=== PATIENT | female | born 1990 | race Caucasian/White ===

== ENCOUNTER → 2017-08-08 | Outpatient (CLI) | payer OTHER ==
--- NOTE | 2017-08-08 14:59 | REP ---
Focused right breast sonography: History: 1/2 cm hard mass 6 o'clock position under the right breast. No comparison breast imaging. Sonographic findings: The patient was unable to feel the lump at this juncture today. This right breast scanned from 5 o'clock to 7 o'clock. Slightly heterogeneous fibroglandular background echotexture is seen. No cyst, mass, acoustic shadowing or architectural distortion is seen by ultrasound. Impression: BIRADS category 1 negative focused right breast sonography. Clinical follow-up is advised. This negative report should not dissuade one from biopsy of a palpable lump depending on its clinical characteristics. Signed by Juwan Mallory MD 08/08/2017 04:17 P
== END ==
LOC: M RAD 13:29
PROVIDERS: ATTEND Nurse Practitioner Women's Health
DX: N63.11 Unspecified lump in the right breast, upper outer quadrant (principal)

== ENCOUNTER 2017-08-18 12:35 | Day surgery (SDC) | payer OTHER ==
[~2017-08-18] VITALS: Ht 170.2 cm; Wt 120.2 kg
[~2017-08-18 12:35] MED LIST: NO MEDS
[2017-08-18] MEDS ORDERED: LIDOCAINE 1% MDV 20ML VIAL SQ PRN (13:00)
[2017-08-18] MEDS ORDERED: LR 1,000 ML IV ONE (13:00)
[2017-08-18 13:10] LABS: MEAN CORPUSCULAR HEMOGLOBIN 30.4 pg (27.0-33.0); MEAN CORPUSCULAR HGB CONC 34.7 g/dl (32.0-36.5); MEAN CORPUSCULAR VOLUME 87.6 fl (80.0-96.0); PLATELET COUNT, AUTOMATED 348 10^3/uL (150-450); RED CELL DISTRIBUTION WIDTH 12.6 % (11.5-14.5); WHITE BLOOD COUNT 9.3 10^3/uL (4.0-10.0)
[2017-08-18 13:29] LABS: CONTROL LINE HCG INT CTR LINE PRESENT
[2017-08-18] MEDS ORDERED: ONDANSETRON 4MG/2ML VIAL (J2405) As Ordered ONE ×2 (15:16→17:10)
[2017-08-18] MEDS ORDERED: PROPOFOL 200 MG/20 ML VIAL As Ordered ONE (15:16)
[2017-08-18] MEDS ORDERED: KETOROLAC 60 MG/2 ML VIAL (J1885) As Ordered ONE (15:16)
[2017-08-18] MEDS ORDERED: dexameTHASONE 4 MG/ML 1ML VIAL (J1100) As Ordered ONE (15:16)
[2017-08-18] MEDS ORDERED: fentaNYL 100 MCG/2 ML INJECTION (J3010) As Ordered ONE ×2 (15:17→17:10)
[2017-08-18] MEDS ORDERED: MIDAZOLAM INJ 2 MG/2 ML VIAL (J2250) As Ordered ONE (15:17)
[2017-08-18] MEDS ORDERED: PERCOCET 5MG/325MG TAB As Ordered ONE (17:10)
[2017-08-18] MEDS ORDERED: fentaNYL 100 MCG/2 ML INJECTION (J3010) IV PRN (17:15)
[2017-08-18] MEDS ORDERED: LR 1,000 ML IV SCH (17:15)
[2017-08-18] MEDS ORDERED: ONDANSETRON 4MG/2ML VIAL (J2405) IV PRN (17:15)
[2017-08-18] MEDS ORDERED: METOCLOPRAMIDE INJ 10MG/2ML VIAL (J2765) IV PRN (17:15)
[2017-08-18] MEDS ORDERED: PERCOCET 5MG/325MG TAB PO PRN ×2 (17:15)
[2017-08-18] MEDS ORDERED: PERCOCET PO (17:33)
[2017-08-18 19:00] VITALS: BP 140/70
--- NOTE | 2017-08-22 10:08 | RO ---
DATE OF PROCEDURE: 08/18/2017 PREPROCEDURE DIAGNOSIS: Perineal lesion. POSTPROCEDURE DIAGNOSIS: Perineal lesion. PROCEDURE PERFORMED: Excision of perineal lesion. SURGEON: Kristi Walker MD AUDIO PRODUCTION INSTRUCTOR: None. ANESTHESIA: General via laryngeal mask airway. IV FLUIDS: 900 mL of lactated Ringer solution. ESTIMATED BLOOD LOSS: 20 mL. OPERATIVE FINDINGS: Approximately 4 cm broad-based pedunculated perineal lesion. DESCRIPTION OF PROCEDURE: After informed consent was obtained and written consent was reviewed, the patient was brought to the operating room where general anesthesia was obtained. She was then placed in the lithotomy position, was prepped and draped in the normal sterile fashion. A time-out in the operating room was performed, identifying the patient, procedure performed, as well as drug allergies. Elliptical edgard was outlined around the lesion. Using a scalpel, the lesion was excised. The skin was then undermined. Several deep interrupted sutures were placed using #3-0 Vicryl. The skin was then reapproximated using #4-0 Vicryl in a subcuticular fashion. Incision was then cleaned and dried. Dermabond was then applied. The patient was then taken out of lithotomy position, was awakened from general anesthesia, taken to recovery room in stable condition. Counts were correct.
== END 2017-08-18 19:30 | disposition home or self-care (01) ==
LOC: M SDC 12:35
PROVIDERS: ATTEND Obstetrics & Gynecology
DX: L72.0 Epidermal cyst (principal); G43.909 Migraine, unspecified, not intractable, without status migrainosus

== ENCOUNTER 2018-01-11 11:27 | Emergency (ER) | payer OTHER ==
[2018-01-11 13:34] LABS: KETONE, URINE AUTO RFX NEGATIVE (NEGATIVE); MUCUS, URINE RFX LARGE (NEGATIVE); NITRITE, URINE AUTO RFX NEGATIVE (NEGATIVE); RBC, URINE AUTO RFX 3 /HPF (0-3); SPECIFIC GRAVITY UR AUTO RFX 1.028 (1.002-1.035); SQUAM EPITHELIAL CELL UR AURFX 5 /HPF (0-6); WBC, URINE AUTO RFX 3 /HPF (0-3)
[2018-01-11 13:39] LABS: LEUKOCYTE ESTERASE UR AUTO RFX 2+ (NEGATIVE)
== END 2018-01-11 15:00 | disposition home or self-care (01) ==
LOC: M ED 11:27
DX: R10.2 Pelvic and perineal pain (principal); R11.0 Nausea; R51 Headache; Z91.040 Latex allergy status
CPT/HCPCS: 76856

== ENCOUNTER → 2018-01-15 | Outpatient (REF) | payer OTHER ==
[2018-01-15 15:43] LABS: CHLAMYDIA DNA AMPLIFICATION NEGATIVE (NEGATIVE); GC DNA AMPLIFICATION NEGATIVE (NEGATIVE)
== END ==
LOC: M LAB REF 13:21
DX: Z11.3 Encounter for screening for infections with a predominantly sexual mode of transmission (principal)

== ENCOUNTER 2018-02-01 20:26 | Emergency (ER) | payer OTHER | END 2018-02-02 00:19 | disposition left against medical advice (07) | LOC: M ED 02-02 00:19 | DX: M79.605 Pain in left leg (principal); Z53.21 Procedure and treatment not carried out due to patient leaving prior to being seen by health care provider | CPT/HCPCS: 73564 ==

== ENCOUNTER 2018-03-26 17:26 | Emergency (ER) | payer OTHER ==
[2018-03-26] MEDS: NS 1,000 ML IV (18:59)
[2018-03-26] MEDS: KETOROLAC 30 MG/ML VIAL (J1885) IV (18:59)
[2018-03-26] MEDS: METOCLOPRAMIDE INJ 10MG/2ML VIAL (J2765) IV (18:59)
[2018-03-26 19:03] LABS: BASO # 0.1 10^3/uL (0.0-0.2); BASO % 0.5 % (0.0-1.0); EOS # 0.1 10^3/uL (0.0-0.50); EOS % 1.1 % (0.0-3.0); HEMOGLOBIN 14.4 g/dl (12.0-15.5); IMMATURE GRANULOCYTE % 0.4 % (0-3.0); LYMPH # 2.8 10^3/uL (1.5-6.5); LYMPH % 25.1 % (24.0-44.0); MEAN CORPUSCULAR HEMOGLOBIN 30.4 pg (27.0-33.0); MEAN CORPUSCULAR HGB CONC 34.3 g/dl (32.0-36.5); MEAN CORPUSCULAR VOLUME 88.6 fl (80.0-96.0); MONO # 0.7 10^3/uL (0.0-0.8); MONO % 6.1 % (0.0-5.0); NEUTROPHILS # 7.6 10^3/uL (1.8-7.7); NEUTROPHILS % 66.8 % (36.0-66.0); PLATELET COUNT, AUTOMATED 364 10^3/uL (150-450); RED BLOOD COUNT 4.74 10^6/uL (4.00-5.40); RED CELL DISTRIBUTION WIDTH 12.5 % (11.5-14.5); WHITE BLOOD COUNT 11.3 10^3/uL (4.0-10.0)
[2018-03-26 19:25] LABS: ANION GAP 11 MEQ/L (8-16); BLOOD UREA NITROGEN 16 MG/DL (7-18); CALCIUM LEVEL 9.2 MG/DL (8.5-10.1); CARBON DIOXIDE LEVEL 21 MEQ/L (21-32); CHLORIDE LEVEL 107 MEQ/L (98-107); CREATININE FOR GFR 0.78 MG/DL (0.55-1.30); GLOMERULAR FILTRATION RATE > 60.0 (>60); GLUCOSE, FASTING 89 MG/DL (70-100); MAGNESIUM LEVEL 2.2 MG/DL (1.8-2.4); SODIUM LEVEL 139 MEQ/L (136-145)
[2018-03-26 19:26] LABS: POTASSIUM SERUM 5.6 MEQ/L (3.5-5.1)
== END 2018-03-26 20:49 | disposition home or self-care (01) ==
LOC: M ED 17:26
DX: G43.909 Migraine, unspecified, not intractable, without status migrainosus (principal)
CPT/HCPCS: J1885

== ENCOUNTER 2018-04-11 08:27 | Emergency (ER) | payer OTHER ==
[2018-04-11] MEDS: GI COCKTAIL 50ML BTL(HYOSCYAMINE/MAALOX/LIDOCAINE VISCOUS)(1:3:1) PO (09:30)
[2018-04-11] MEDS: NS 1,000 ML IV (09:31)
[2018-04-11 09:49] LABS: BASO % 0.5 % (0.0-1.0); EOS # 0.1 10^3/uL (0.0-0.50); EOS % 1.6 % (0.0-3.0); HEMATOCRIT 40.8 % (36.0-47.0); HEMOGLOBIN 14.2 g/dl (12.0-15.5); IMMATURE GRANULOCYTE % 0.2 % (0-3.0); LYMPH # 2.7 10^3/uL (1.5-6.5); LYMPH % 31.6 % (24.0-44.0); MEAN CORPUSCULAR HEMOGLOBIN 30.8 pg (27.0-33.0); MEAN CORPUSCULAR HGB CONC 34.8 g/dl (32.0-36.5); MEAN CORPUSCULAR VOLUME 88.5 fl (80.0-96.0); MONO # 0.5 10^3/uL (0.0-0.8); MONO % 6.2 % (0.0-5.0); NEUTROPHILS # 5.1 10^3/uL (1.8-7.7); NEUTROPHILS % 59.9 % (36.0-66.0); PLATELET COUNT, AUTOMATED 322 10^3/uL (150-450); RED BLOOD COUNT 4.61 10^6/uL (4.00-5.40); RED CELL DISTRIBUTION WIDTH 12.5 % (11.5-14.5); WHITE BLOOD COUNT 8.6 10^3/uL (4.0-10.0)
[2018-04-11 10:04] LABS: CONTROL LINE HCG INT CTR LINE PRESENT; HCG, SERUM QUALITATIVE NEGATIVE (NEGATIVE)
[2018-04-11 10:13] LABS: ALBUMIN 3.2 GM/DL (3.2-5.2); ALBUMIN/GLOBULIN RATIO 0.78 (1.00-1.93); ALKALINE PHOSPHATASE 53 U/L (45-117); ALT/SGPT 24 U/L (12-78); ANION GAP 11 MEQ/L (8-16); AST/SGOT 18 U/L (7-37); BILIRUBIN,DIRECT 0.2 MG/DL (0.0-0.2); BILIRUBIN,TOTAL 0.6 MG/DL (0.2-1.0); BLOOD UREA NITROGEN 7 MG/DL (7-18); CALCIUM LEVEL 8.4 MG/DL (8.5-10.1); CARBON DIOXIDE LEVEL 25 MEQ/L (21-32); CHLORIDE LEVEL 105 MEQ/L (98-107); CPK CREATINE PHOSPHOKINASE 34 U/L (26-192); GLOMERULAR FILTRATION RATE > 60.0 (>60); GLUCOSE, FASTING 91 MG/DL (70-100); LIPASE 65 U/L (73-393); POTASSIUM SERUM 3.3 MEQ/L (3.5-5.1); SODIUM LEVEL 141 MEQ/L (136-145); TOTAL PROTEIN 7.3 GM/DL (6.4-8.2); TROPONIN I < 0.02 NG/ML (< 0.10)
[2018-04-11 10:15] LABS: D-DIMER QUANT < 270.0 ng/ml (<500)
[2018-04-11 10:18] LABS: CK-MB VALUE MASS < 1.0 NG/ML (<3.6); MB/CK RELATIVE INDEX 2.94 (< OR =4)
== END 2018-04-11 11:56 | disposition home or self-care (01) ==
LOC: M ED 08:27
DX: R07.89 Other chest pain (principal); R03.0 Elevated blood-pressure reading, without diagnosis of hypertension; R11.0 Nausea; G43.909 Migraine, unspecified, not intractable, without status migrainosus; Z79.899 Other long term (current) drug therapy; Z91.040 Latex allergy status
CPT/HCPCS: 71046

== ENCOUNTER 2018-05-10 13:59 | Emergency (ER) | payer OTHER ==
[2018-05-10 14:42] LABS: BASO # 0.1 10^3/uL (0.0-0.2); BASO % 0.6 % (0.0-1.0); EOS # 0.1 10^3/uL (0.0-0.50); EOS % 1.3 % (0.0-3.0); HEMOGLOBIN 14.9 g/dl (12.0-15.5); IMMATURE GRANULOCYTE % 0.4 % (0-3.0); LYMPH # 2.5 10^3/uL (1.5-6.5); LYMPH % 29.3 % (24.0-44.0); MEAN CORPUSCULAR HEMOGLOBIN 31.1 pg (27.0-33.0); MEAN CORPUSCULAR HGB CONC 35.5 g/dl (32.0-36.5); MEAN CORPUSCULAR VOLUME 87.7 fl (80.0-96.0); MONO # 0.5 10^3/uL (0.0-0.8); NEUTROPHILS # 5.3 10^3/uL (1.8-7.7); NEUTROPHILS % 62.4 % (36.0-66.0); PLATELET COUNT, AUTOMATED 378 10^3/uL (150-450); RED BLOOD COUNT 4.79 10^6/uL (4.00-5.40); RED CELL DISTRIBUTION WIDTH 12.7 % (11.5-14.5); WHITE BLOOD COUNT 8.4 10^3/uL (4.0-10.0)
[2018-05-10 15:02] LABS: ANION GAP 11 MEQ/L (8-16); BLOOD UREA NITROGEN 10 MG/DL (7-18); CALCIUM LEVEL 8.8 MG/DL (8.5-10.1); CARBON DIOXIDE LEVEL 30 MEQ/L (21-32); CHLORIDE LEVEL 101 MEQ/L (98-107); GLOMERULAR FILTRATION RATE > 60.0 (>60); GLUCOSE, FASTING 90 MG/DL (70-100); MAGNESIUM LEVEL 2.2 MG/DL (1.8-2.4); POTASSIUM SERUM 3.3 MEQ/L (3.5-5.1); SODIUM LEVEL 142 MEQ/L (136-145)
== END 2018-05-10 15:32 | disposition home or self-care (01) ==
LOC: M ED 13:59
DX: R20.2 Paresthesia of skin (principal); Z79.899 Other long term (current) drug therapy
CPT/HCPCS: 72125

== ENCOUNTER → 2018-06-14 | Outpatient (CLI) | payer OTHER | LOC: M RAD 08:01 | DX: J32.0 Chronic maxillary sinusitis (principal) | CPT/HCPCS: 70486 ==

== ENCOUNTER 2018-08-10 08:23 | Emergency (ER) | payer OTHER ==
[2018-08-10] MEDS: IBUPROFEN 800 MG TAB PO (09:18)
== END 2018-08-10 09:25 | disposition home or self-care (01) ==
LOC: M ED 08:23
DX: M79.672 Pain in left foot (principal)
CPT/HCPCS: 73630

== ENCOUNTER 2018-08-17 21:59 | Emergency (ER) | payer OTHER ==
[2018-08-17 22:48] LABS: BASO # 0.1 10^3/uL (0.0-0.2); BASO % 0.7 % (0.0-1.0); EOS # 0.2 10^3/uL (0.0-0.50); EOS % 1.7 % (0.0-3.0); HEMATOCRIT 40.2 % (36.0-47.0); HEMOGLOBIN 14.2 g/dl (12.0-15.5); IMMATURE GRANULOCYTE % 0.2 % (0-3.0); LYMPH # 3.1 10^3/uL (1.5-4.5); LYMPH % 31.3 % (24.0-44.0); MEAN CORPUSCULAR HEMOGLOBIN 31.3 pg (27.0-33.0); MEAN CORPUSCULAR HGB CONC 35.3 g/dl (32.0-36.5); MEAN CORPUSCULAR VOLUME 88.5 fl (80.0-96.0); MONO # 0.8 10^3/uL (0.0-0.8); MONO % 8.3 % (0.0-5.0); NEUTROPHILS # 5.7 10^3/uL (1.8-7.7); NEUTROPHILS % 57.8 % (36.0-66.0); PLATELET COUNT, AUTOMATED 410 10^3/uL (150-450); RED BLOOD COUNT 4.54 10^6/uL (4.00-5.40); WHITE BLOOD COUNT 9.8 10^3/uL (4.0-10.0)
[2018-08-17 22:52] LABS: ABG BASE EXCESS 3.7 (-2.0-2.0); ABG HCO3 25.6 MEQ/L (22.0-26.0); ABG PARTIAL PRESSURE O2 136.5 mmHg (75.0-100.0); ABG STANDARD HCO3 27.8 MEQ/L (22.0-26.0); ABG TOTAL CO2 26.6 MEQ/L (22.0-29.0); ABG pH (ARTERIAL) 7.535 UNITS (7.350-7.450)
[2018-08-17 23:02] LABS: ANION GAP 9 MEQ/L (8-16); BLOOD UREA NITROGEN 16 MG/DL (7-18); CALCIUM LEVEL 8.6 MG/DL (8.5-10.1); CARBON DIOXIDE LEVEL 30 MEQ/L (21-32); CHLORIDE LEVEL 102 MEQ/L (98-107); CREATININE FOR GFR 0.74 MG/DL (0.55-1.30); GLOMERULAR FILTRATION RATE > 60.0 (>60); GLUCOSE, FASTING 117 MG/DL (70-100); POTASSIUM SERUM 3.5 MEQ/L (3.5-5.1); SODIUM LEVEL 141 MEQ/L (136-145)
[2018-08-17 23:28] LABS: CONTROL LINE HCG INT CTR LINE PRESENT; HCG, SERUM QUALITATIVE NEGATIVE (NEGATIVE)
[2018-08-18] MEDS: LORazepam 1 MG TAB PO (00:27)
== END 2018-08-18 01:06 | disposition home or self-care (01) ==
LOC: M ED 08-18 01:06
DX: R06.89 Other abnormalities of breathing (principal); F41.9 Anxiety disorder, unspecified
CPT/HCPCS: 71045

== ENCOUNTER 2018-11-13 10:26 | Emergency (ER) | payer OTHER ==
[~2018-11-13] VITALS: Ht 167.6 cm; Wt 253.0 kg
[~2018-11-13 10:26] MED LIST changes: +ACET500T15 PO; +CHLO125TA; +FLON1SPR NARES; +KETO10TAB PO; +METR-201; +PERCOCET PO; +REGL10TA6 PO; +TOPA1TAB PO
[2018-11-13] MEDS ORDERED: LIDOCAINE 1% MDV 20ML VIAL IM ONE (11:30)
[2018-11-13 12:09] VITALS: BP 138/88
[2018-11-13] MEDS ORDERED: NORCOTAB PO (12:11)
[2018-11-13] MEDS ORDERED: NORCO, ANEXSIA 5/325MG TABLET (HYDROcodone/ACETAMINOPHEN) PO ONE (12:15)
== END 2018-11-13 12:22 | disposition home or self-care (01) ==
LOC: M ED 10:26
DX: N75.1 Abscess of Bartholin's gland (principal); I10 Essential (primary) hypertension; Z79.899 Other long term (current) drug therapy; Z91.040 Latex allergy status

== ENCOUNTER 2018-12-14 13:31 | Emergency (ER) | payer OTHER ==
[~2018-12-14] VITALS: Ht 167.6 cm; Wt 113.6 kg
[2018-12-14 13:31] VITALS: BP 149/73
[~2018-12-14 13:31] MED LIST changes: +HYDR-3715 PO; -METR-201; +METR-265
[2018-12-14] MEDS ORDERED: EXPOSURE KIT-ADULT 7 DAY SUPPLY PO ONE (14:30)
[2018-12-14 14:34] LABS: BASO # 0.1 10^3/uL (0.0-0.2); BASO % 0.6 % (0.0-1.0); EOS # 0.1 10^3/uL (0.0-0.50); EOS % 1.1 % (0.0-3.0); HEMATOCRIT 39.5 % (36.0-47.0); HEMOGLOBIN 13.8 g/dl (12.0-15.5); LYMPH # 2.6 10^3/uL (1.5-4.5); LYMPH % 27.4 % (24.0-44.0); MEAN CORPUSCULAR HEMOGLOBIN 30.7 pg (27.0-33.0); MEAN CORPUSCULAR HGB CONC 34.9 g/dl (32.0-36.5); MONO # 0.6 10^3/uL (0.0-0.8); MONO % 5.8 % (0.0-5.0); NEUTROPHILS # 6.2 10^3/uL (1.8-7.7); NEUTROPHILS % 64.9 % (36.0-66.0); PLATELET COUNT, AUTOMATED 371 10^3/uL (150-450); RED BLOOD COUNT 4.49 10^6/uL (4.00-5.40); WHITE BLOOD COUNT 9.5 10^3/uL (4.0-10.0)
[2018-12-14] MEDS ORDERED: RALT40TA PO (14:35)
[2018-12-14] MEDS ORDERED: TRUVTAB PO (14:35)
[2018-12-15 20:24] LABS: HCG, SERUM QUALITATIVE NEGATIVE (NEGATIVE)
[2018-12-17 10:41] LABS: HEPATITIS B SURFACE ANTIBODY POSITIVE (POSITIVE); HEPATITIS B SURFACE ANTIGEN NEGATIVE (NEGATIVE)
[2018-12-18] MEDS ORDERED: METAL LOCK LOOP XX ONE (03:16)
[2018-12-19] MEDS ORDERED: METAL LOCK LOOP XX ONE (02:27)
== END 2018-12-14 14:51 | disposition home or self-care (01) ==
LOC: M ED 13:31
DX: Z77.21 Contact with and (suspected) exposure to potentially hazardous body fluids (principal); Z91.040 Latex allergy status; Z79.899 Other long term (current) drug therapy

== ENCOUNTER 2019-02-19 17:02 | Emergency (ER) | payer OTHER ==
[~2019-02-19] VITALS: Ht 167.6 cm; Wt 115.5 kg
[2019-02-19] MEDS ORDERED: LIDOCAINE 1% MDV 20ML VIAL SC ONE (17:30)
[2019-02-19] MEDS ORDERED: ADACEL/BOOSTRIX VACCINE (DIPHTH/PERTUSS/ACELL/TETANUS)0.5ML SYR (90715) IM ONE (17:30)
[2019-02-19 18:09] VITALS: BP 141/81
== END 2019-02-19 18:11 | disposition home or self-care (01) ==
LOC: M ED 17:02
DX: S61.411A Laceration without foreign body of right hand, initial encounter (principal); W26.8XXA Contact with other sharp object(s), not elsewhere classified, initial encounter; Y92.89 Other specified places as the place of occurrence of the external cause; Y99.0 Civilian activity done for income or pay; I10 Essential (primary) hypertension; Z91.040 Latex allergy status; Z79.899 Other long term (current) drug therapy

== ENCOUNTER → 2019-02-19 | Outpatient (REF) | payer OTHER ==
[~2019-02-19] MED LIST changes: +RALT40TA PO; +TRUVTAB PO
[2019-02-19 11:33] LABS: ALBUMIN 3.4 GM/DL (3.2-5.2); ALT/SGPT 18 U/L (12-78); BILIRUBIN,TOTAL 0.4 MG/DL (0.2-1.0); BLOOD UREA NITROGEN 19 MG/DL (7-18); CALCIUM LEVEL 8.7 MG/DL (8.5-10.1); CARBON DIOXIDE LEVEL 32 MEQ/L (21-32); CHLORIDE LEVEL 106 MEQ/L (98-107); CHOLESTEROL LEVEL 185 MG/DL (<200); CHOLESTEROL RISK RATIO 3.032 (<5); CREATININE FOR GFR 0.69 MG/DL (0.55-1.30); GLOMERULAR FILTRATION RATE > 60.0 (>60); GLUCOSE, FASTING 101 MG/DL (70-100); HDL CHOLESTEROL 61 MG/DL (>40); LDL CHOLESTEROL 112 MG/DL (<100); NON-HDL-C 124 MG/DL; POTASSIUM SERUM 3.8 MEQ/L (3.5-5.1); SODIUM LEVEL 146 MEQ/L (136-145); TOTAL PROTEIN 7.5 GM/DL (6.4-8.2); TRIGLYCERIDES LEVEL 60 MG/DL (<150)
== END ==
LOC: M LAB REF 10:47
PROVIDERS: ATTEND Family Medicine Addiction Medicine
DX: I10 Essential (primary) hypertension (principal)

== ENCOUNTER 2019-02-26 13:48 | Outpatient (RCR) | payer OTHER ==
[2019-03-01] MEDS ORDERED: CILO0.3S OD (09:52)
[2019-03-01] MEDS ORDERED: CYCL1SOL17 OD (09:52)
[2019-03-01] MEDS ORDERED: ACUL0.5S OD (09:52)
== END 2019-03-10 ==
LOC: M PT 13:48
PROVIDERS: ATTEND Orthopaedic Surgery
DX: M47.892 Other spondylosis, cervical region (principal)

== ENCOUNTER 2019-03-01 08:54 | Emergency (ER) | payer OTHER ==
[~2019-03-01] VITALS: Ht 167.6 cm; Wt 115.0 kg
[2019-03-01 08:54] VITALS: BP 135/78
[2019-03-01] MEDS ORDERED: TETRACAINE 0.5% OPHTH SOLN 4ML OD ONE (09:30)
[2019-03-01] MEDS ORDERED: FLUORESCEIN OPHTH 1 MG STRIP OD ONE (09:30)
[2019-03-01] MEDS ORDERED: CYCL1SOL17 OD (09:52)
[2019-03-01] MEDS ORDERED: CILO0.3S OD (09:52)
[2019-03-01] MEDS ORDERED: ACUL0.5S OD (09:52)
== END 2019-03-01 10:10 | disposition home or self-care (01) ==
LOC: M ED 08:54
DX: S05.01XA Injury of conjunctiva and corneal abrasion without foreign body, right eye, initial encounter (principal); H10.31 Unspecified acute conjunctivitis, right eye; X58.XXXA Exposure to other specified factors, initial encounter; Y92.098 Other place in other non-institutional residence as the place of occurrence of the external cause; I10 Essential (primary) hypertension; Z91.040 Latex allergy status; Z79.899 Other long term (current) drug therapy

== ENCOUNTER 2019-03-05 08:31 | Emergency (ER) | payer OTHER ==
[~2019-03-05] VITALS: Ht 167.6 cm; Wt 116.4 kg
[2019-03-05 08:31] VITALS: BP 133/85
[~2019-03-05 08:31] MED LIST changes: +ACUL0.5S OD; +CILO0.3S OD; +CYCL1SOL17 OD
== END 2019-03-05 09:22 | disposition home or self-care (01) ==
LOC: M ED 08:31
DX: Z48.02 Encounter for removal of sutures (principal); S61.411D Laceration without foreign body of right hand, subsequent encounter; X58.XXXD Exposure to other specified factors, subsequent encounter; Y92.89 Other specified places as the place of occurrence of the external cause; I10 Essential (primary) hypertension; G43.909 Migraine, unspecified, not intractable, without status migrainosus; Z91.040 Latex allergy status

== ENCOUNTER 2019-03-17 11:09 | Emergency (ER) | payer OTHER ==
[~2019-03-17] VITALS: Ht 167.6 cm; Wt 115.5 kg
[2019-03-17] MEDS ORDERED: TETRACAINE 0.5% OPHTH SOLN 4ML OD ONE (13:00)
[2019-03-17 13:02] LABS: BASO # 0.1 10^3/uL (0.0-0.2); BASO % 0.8 % (0.0-1.0); EOS # 0.1 10^3/uL (0.0-0.50); EOS % 1.2 % (0.0-3.0); HEMATOCRIT 42.4 % (36.0-47.0); HEMOGLOBIN 14.6 g/dl (12.0-15.5); LYMPH # 1.8 10^3/uL (1.5-4.5); LYMPH % 24.8 % (24.0-44.0); MEAN CORPUSCULAR HEMOGLOBIN 31.3 pg (27.0-33.0); MEAN CORPUSCULAR HGB CONC 34.4 g/dl (32.0-36.5); MEAN CORPUSCULAR VOLUME 90.8 fl (80.0-96.0); MONO # 0.5 10^3/uL (0.0-0.8); MONO % 6.1 % (0.0-5.0); NEUTROPHILS # 4.9 10^3/uL (1.8-7.7); NEUTROPHILS % 66.8 % (36.0-66.0); PLATELET COUNT, AUTOMATED 364 10^3/uL (150-450); RED BLOOD COUNT 4.67 10^6/uL (4.00-5.40); WHITE BLOOD COUNT 7.4 10^3/uL (4.0-10.0)
[2019-03-17 13:25] LABS: HCG, SERUM QUALITATIVE NEGATIVE (NEGATIVE)
[2019-03-17 13:27] LABS: ALBUMIN 3.5 GM/DL (3.2-5.2); ALT/SGPT 21 U/L (12-78); BILIRUBIN,TOTAL 0.4 MG/DL (0.2-1.0); BLOOD UREA NITROGEN 16 MG/DL (7-18); CALCIUM LEVEL 9.1 MG/DL (8.5-10.1); CARBON DIOXIDE LEVEL 29 MEQ/L (21-32); CHLORIDE LEVEL 104 MEQ/L (98-107); CREATININE FOR GFR 0.66 MG/DL (0.55-1.30); GLOMERULAR FILTRATION RATE > 60.0 (>60); GLUCOSE, FASTING 88 MG/DL (70-100); POTASSIUM SERUM 3.5 MEQ/L (3.5-5.1); SODIUM LEVEL 140 MEQ/L (136-145); TOTAL PROTEIN 7.7 GM/DL (6.4-8.2)
[2019-03-17] MEDS ORDERED: FLUORESCEIN OPHTH 1 MG STRIP OD ONE (14:45)
[2019-03-17 15:05] VITALS: BP 122/71
[2019-03-18 12:28] LABS: HEPATITIS B SURFACE ANTIBODY POSITIVE (POSITIVE)
[2019-03-18 12:39] LABS: HEPATITIS B SURFACE ANTIGEN NEGATIVE (NEGATIVE)
[2019-03-18 13:07] LABS: HEPATITIS C VIRUS ABY INDEX 0.1 INDEX (<0.8)
== END 2019-03-17 15:00 | disposition home or self-care (01) ==
LOC: M ED 11:54
DX: Z77.21 Contact with and (suspected) exposure to potentially hazardous body fluids (principal); Y92.89 Other specified places as the place of occurrence of the external cause; Y93.9 Activity, unspecified; Y99.0 Civilian activity done for income or pay; I10 Essential (primary) hypertension; G43.909 Migraine, unspecified, not intractable, without status migrainosus; Z79.899 Other long term (current) drug therapy; Z91.040 Latex allergy status

== ENCOUNTER 2019-03-28 13:15 | Outpatient (RCR) | payer OTHER | END 2019-04-10 | LOC: M PT 13:15 | PROVIDERS: ATTEND Orthopaedic Surgery | DX: Z47.89 Encounter for other orthopedic aftercare (principal); M54.2 Cervicalgia ==

== ENCOUNTER 2019-04-05 07:35 | Emergency (ER) | payer OTHER ==
[~2019-04-05] VITALS: Ht 167.6 cm; Wt 118.7 kg
[2019-04-05 07:36] VITALS: BP 121/68
== END 2019-04-05 10:09 | disposition left against medical advice (07) ==
LOC: M ED 07:35
DX: L98.9 Disorder of the skin and subcutaneous tissue, unspecified (principal); Z53.21 Procedure and treatment not carried out due to patient leaving prior to being seen by health care provider

== ENCOUNTER 2019-07-08 14:10 | Outpatient (RCR) | payer OTHER | END 2019-07-11 | LOC: M PT 14:10 | PROVIDERS: ATTEND Physician Assistant | DX: Z47.89 Encounter for other orthopedic aftercare (principal); M47.812 Spondylosis without myelopathy or radiculopathy, cervical region ==

== ENCOUNTER 2019-11-16 16:08 | Emergency (ER) | payer BC, OTHER ==
[~2019-11-16] VITALS: Ht 167.6 cm; Wt 118.2 kg
[2019-11-16] MEDS ORDERED: ONDANSETRON 4 MG ORAL DISINTEGRATING TAB (Q0162 PER 1MG) PO ONE (16:30)
--- NOTE | 2019-11-16 16:46 | REP ---
Head CT without contrast: History: Frontal trauma. Comparison study: March 26, 2018. CT findings: Bone window settings demonstrate an intact bony calvarium. There is no evidence of skull fracture or incidental bony calvarial lesion. There is a minimal area of frontal soft tissue swelling in the scalp. The visualized paranasal sinuses appear clear. No intraorbital abnormality is seen. On soft tissue window setting images; the lateral, third, and fourth ventricles are normal in size and position. Monroe-white differentiation pattern is normal above and below the tentorium. There are is no evidence of intracranial hemorrhage. No mass, edema, infarction, or midline shift is seen. No extra-axial fluid collection is appreciated. Impression: Negative noncontrast head CT. Electronically Signed by Juwan Mallory MD 11/16/2019 04:36 P
[2019-11-16] MEDS ORDERED: IBUPROFEN 600 MG TAB PO ONE (17:15)
[2019-11-16] MEDS ORDERED: ACETAMINOPHEN TAB 650MG DOSE (2X325MG) PO ONE (17:15)
[2019-11-16] MEDS ORDERED: ONDA4TAB6 PO (17:18)
[2019-11-16 17:49] VITALS: BP 148/73
== END 2019-11-16 18:11 | disposition home or self-care (01) ==
LOC: M ED 16:08
DX: S09.90XA Unspecified injury of head, initial encounter (principal); W18.2XXA Fall in (into) shower or empty bathtub, initial encounter; Y92.012 Bathroom of single-family (private) house as the place of occurrence of the external cause; I10 Essential (primary) hypertension; Z79.899 Other long term (current) drug therapy; Z91.040 Latex allergy status
CPT/HCPCS: 70450; 99283; Q0162

== ENCOUNTER → 2019-12-13 | Outpatient (CLI) | payer BC ==
[~2019-12-13] MED LIST changes: +ONDA4TAB6 PO
== END ==
LOC: M LABSMTC 10:11
PROVIDERS: ATTEND Family Medicine
DX: Z11.59 Encounter for screening for other viral diseases (principal); Z20.828 Contact with and (suspected) exposure to other viral communicable diseases

== ENCOUNTER → 2019-12-30 | Outpatient (REF) | payer BC ==
[~2019-12-30] MED LIST changes: +CEPH500C; +CLEO300C2 PO; +OXYC1TAB23
== END ==
LOC: M LAB REF 07:20
PROVIDERS: ATTEND Dermatology
DX: R21 Rash and other nonspecific skin eruption (principal)

== ENCOUNTER 2020-01-10 17:33 | Emergency (ER) | payer BC ==
[~2020-01-10] VITALS: Ht 167.6 cm; Wt 121.6 kg
[~2020-01-10 17:33] MED LIST changes: -CEPH500C; -CLEO300C2 PO; -OXYC1TAB23
[2020-01-10] MEDS ORDERED: CEPH500C (17:40)
[2020-01-10] MEDS ORDERED: OXYC1TAB23 (17:40)
[2020-01-10 18:17] LABS: BASO # 0.1 10^3/uL (0.0-0.2); BASO % 0.5 % (0.0-1.0); EOS # 0.1 10^3/uL (0.0-0.5); EOS % 0.8 % (0.0-3.0); HEMOGLOBIN 15.2 g/dl (12.0-15.5); LYMPH # 3.1 10^3/uL (1.5-5.0); LYMPH % 26.4 % (24.0-44.0); MEAN CORPUSCULAR HEMOGLOBIN 30.3 pg (27.0-33.0); MEAN CORPUSCULAR HGB CONC 34.5 g/dl (32.0-36.5); MEAN CORPUSCULAR VOLUME 87.6 fl (80.0-96.0); MONO # 0.7 10^3/uL (0.0-0.8); MONO % 5.7 % (0.0-5.0); NEUTROPHILS # 7.9 10^3/uL (1.5-8.5); NEUTROPHILS % 66.3 % (36.0-66.0); PLATELET COUNT, AUTOMATED 412 10^3/uL (150-450); RED BLOOD COUNT 5.02 10^6/uL (4.00-5.40); WHITE BLOOD COUNT 11.9 10^3/uL (4.0-10.0)
[2020-01-10 18:37] LABS: BLOOD UREA NITROGEN 16 MG/DL (7-18); C REACTIVE PROTEIN QUANTITATIV 0.32 MG/DL (0.00-0.30); CALCIUM LEVEL 9.9 MG/DL (8.5-10.1); CARBON DIOXIDE LEVEL 33 MEQ/L (21-32); CHLORIDE LEVEL 100 MEQ/L (98-107); CREATININE FOR GFR 0.65 MG/DL (0.55-1.30); GLOMERULAR FILTRATION RATE > 60.0 (>60); GLUCOSE, FASTING 89 MG/DL (70-100); POTASSIUM SERUM 3.2 MEQ/L (3.5-5.1); SODIUM LEVEL 139 MEQ/L (136-145)
[2020-01-10] MEDS ORDERED: ISOVUE-370 76% 100ML VIAL As Ordered ONE (18:40)
[2020-01-10 18:44] LABS: ERYTHROCYTE SEDIMENTATION RATE 39 mm/hr (0-20)
--- NOTE | 2020-01-10 19:05 | REPVR ---
PROCEDURE INFORMATION: Exam: CT Maxillofacial With Contrast Exam date and time: 01/10/2020 6:52 PM Age: 29 years old Clinical indication: Mass, lump, or swelling; Other: R mastoid/neck; Additional info: Swelling R mastoid/neck R/O mastoiditis TECHNIQUE: Imaging protocol: Computed tomography images of the face with intravenous contrast. Radiation optimization: All CT scans at this facility use at least one of these dose optimization techniques: automated exposure control; mA and/or kV adjustment per patient size (includes targeted exams where dose is matched to clinical indication); or iterative reconstruction. Contrast material: ISOVUE 370; Contrast volume: 75 ml; Contrast route: IV; COMPARISON: CT Maxilofacial w/out contrast 06/14/2018 8:09 AM FINDINGS: Orbits: Orbits are normal. Globes are unremarkable. Bones/joints: No acute fracture. Sinuses: Normal. No air-fluid levels. Soft tissues: Unremarkable. IMPRESSION: No acute abnormality. Mastoid air cells are clear. Electronically signed by: Mic Babb On 01/10/2020 19:04:46 PM
[2020-01-10 19:14] VITALS: BP 139/87
[2020-01-10] MEDS ORDERED: ONDA4TAB6 PO (19:17)
[2020-01-10] MEDS ORDERED: CLEO300C2 PO (19:17)
== END 2020-01-10 19:25 | disposition home or self-care (01) ==
LOC: M ED 17:33
DX: J03.90 Acute tonsillitis, unspecified (principal); R59.0 Localized enlarged lymph nodes; I10 Essential (primary) hypertension; G43.909 Migraine, unspecified, not intractable, without status migrainosus; Z91.040 Latex allergy status; Z79.899 Other long term (current) drug therapy; Z79.2 Long term (current) use of antibiotics
CPT/HCPCS: 70487; 80048; 84702; 85025; 85652; 86140; 99283; Q9967

== ENCOUNTER → 2020-01-24 | Outpatient (CLI) | payer BC ==
[~2020-01-24] MED LIST changes: +CEPH500C; +CLEO300C2 PO; +OXYC1TAB23
[2020-01-24 11:20] LABS: FREE T4 1.22 NG/DL (0.76-1.46); THYROID STIMULATING HORMONE 1.36 uIU/ML (0.358-3.740)
== END ==
LOC: M LAB 10:05
PROVIDERS: ATTEND Dermatology
DX: L63.9 Alopecia areata, unspecified (principal)

== ENCOUNTER → 2020-03-21 | Outpatient (CLI) | payer BC ==
[~2020-03-21] MED LIST changes: +CETI10CA13 PO; +OXYC1TAB23 PO; +RALT40TA; +TRUVTAB
== END ==
LOC: M LABSMTC 10:02
PROVIDERS: ATTEND Anesthesiology
DX: Z01.818 Encounter for other preprocedural examination (principal); Z11.59 Encounter for screening for other viral diseases
CPT/HCPCS: C9803; U0003

== ENCOUNTER 2020-03-26 09:36 | Day surgery (SDC) | payer BC ==
[~2020-03-26] VITALS: Ht 167.6 cm; Wt 122.5 kg
[~2020-03-26 09:36] MED LIST changes: -OXYC1TAB23 PO; -RALT40TA; -TRUVTAB
[2020-03-26] MEDS ORDERED: dexameTHASONE 4 MG/ML 1ML VIAL (J1100 PER 1MG) IV ONE (10:00)
[2020-03-26] MEDS ORDERED: OXYMETAZOLINE 0.05% NASAL SPRAY (AFRIN) As Ordered ONE (11:31)
[2020-03-26] MEDS ORDERED: ROCURONIUM BROMIDE 50 MG/5 ML VIAL As Ordered ONE (12:01)
[2020-03-26] MEDS ORDERED: fentaNYL 100 MCG/2 ML INJECTION (J3010) As Ordered ONE (12:01)
[2020-03-26] MEDS ORDERED: propofoL 200 MG/20 ML VIAL As Ordered ONE (12:01)
[2020-03-26] MEDS ORDERED: ONDANSETRON 4MG/2ML VIAL As Ordered ONE (12:01)
[2020-03-26] MEDS ORDERED: MIDAZOLAM INJ 2MG/2ML VIAL (J2250 PER 1MG) As Ordered ONE (12:01)
[2020-03-26] MEDS ORDERED: dexameTHASONE 4 MG/ML 1ML VIAL (J1100 PER 1MG) As Ordered ONE (12:01)
[2020-03-26] MEDS ORDERED: LIDOCAINE 2% 100MG/5ML SDV (FOR ANES.) As Ordered ONE (12:01)
[2020-03-26] MEDS ORDERED: SUCCINYLCHOLINE 100 MG/5 ML SYRINGE (J0330) As Ordered ONE (12:05)
[2020-03-26] MEDS: oxyCODONE 5MG TAB PO PRN ×2 (12:48→13:59)
[2020-03-26] MEDS ORDERED: oxyCODONE 5MG TAB As Ordered ONE (12:49)
[2020-03-26] MEDS ORDERED: fentaNYL 100 MCG/2 ML INJECTION (J3010) IV PRN (13:00)
[2020-03-26] MEDS ORDERED: HYDROMORPHONE HCL 0.5 MG/ 0.5 ML SYRINGE (J1170 PER 1) IV PRN (13:00)
[2020-03-26] MEDS ORDERED: ONDANSETRON 4MG/2ML VIAL IV PRN (13:00)
[2020-03-26] MEDS ORDERED: LR 1,000 ML IV SCH (13:00)
[2020-03-26 14:30] VITALS: BP 130/70
== END 2020-03-26 14:32 | disposition home or self-care (01) ==
LOC: M SDC 09:36
PROVIDERS: ATTEND Otolaryngology
DX: J35.01 Chronic tonsillitis (principal); I10 Essential (primary) hypertension; G43.909 Migraine, unspecified, not intractable, without status migrainosus; Z79.899 Other long term (current) drug therapy
CPT/HCPCS: 42826; 81025; 88302; J0330; J1100; J2250; J2405; J3010

== ENCOUNTER 2020-04-24 15:36 | Emergency (ER) | payer BC ==
[2020-04-24] MEDS ORDERED: TRUVADA 200MG/300MG TABLET ONE (15:37)
[2020-04-24] MEDS ORDERED: RALTEGRAVIR 400 MG TAB (ISENTRESS) ONE (15:37)
[2020-06-08 12:17] LABS: BASO # 0.1 10^3/uL (0.0-0.2); BASO % 0.5 % (0.0-1.0); EOS # 0.2 10^3/uL (0.0-0.5); EOS % 1.3 % (0.0-3.0); HEMATOCRIT 43.1 % (36.0-47.0); HEMOGLOBIN 14.5 g/dl (12.0-15.5); LYMPH # 2.2 10^3/uL (1.5-5.0); LYMPH % 18.1 % (24.0-44.0); MEAN CORPUSCULAR HEMOGLOBIN 30.1 pg (27.0-33.0); MEAN CORPUSCULAR HGB CONC 33.6 g/dl (32.0-36.5); MEAN CORPUSCULAR VOLUME 89.6 fl (80.0-96.0); MONO # 0.6 10^3/uL (0.0-0.8); NEUTROPHILS # 8.9 10^3/uL (1.5-8.5); NEUTROPHILS % 74.8 % (36.0-66.0); PLATELET COUNT, AUTOMATED 432 10^3/uL (150-450); RED BLOOD COUNT 4.81 10^6/uL (4.00-5.40); WHITE BLOOD COUNT 11.9 10^3/uL (4.0-10.0)
[2020-06-24] MEDS ORDERED: TRUVTAB (12:22)
[2020-06-24] MEDS ORDERED: RALT40TA (12:22)
== END 2020-04-24 17:38 | disposition home or self-care (01) ==
LOC: M ED 15:36
DX: Z77.21 Contact with and (suspected) exposure to potentially hazardous body fluids (principal)

== ENCOUNTER 2020-06-08 11:15 | Emergency (ER) | payer BC, OTHER ==
[~2020-06-08] VITALS: Ht 167.6 cm; Wt 122.4 kg
[2020-06-08 12:10] LABS: BASO # 0.1 10^3/uL (0.0-0.2); BASO % 0.5 % (0.0-1.0); EOS # 0.1 10^3/uL (0.0-0.5); EOS % 1.1 % (0.0-3.0); HEMATOCRIT 41.1 % (36.0-47.0); HEMOGLOBIN 14.1 g/dl (12.0-15.5); LYMPH # 2.7 10^3/uL (1.5-5.0); LYMPH % 25.5 % (24.0-44.0); MEAN CORPUSCULAR HEMOGLOBIN 30.6 pg (27.0-33.0); MEAN CORPUSCULAR HGB CONC 34.3 g/dl (32.0-36.5); MEAN CORPUSCULAR VOLUME 89.2 fl (80.0-96.0); MONO # 0.6 10^3/uL (0.0-0.8); MONO % 5.4 % (0.0-5.0); NEUTROPHILS # 7.1 10^3/uL (1.5-8.5); PLATELET COUNT, AUTOMATED 393 10^3/uL (150-450); RED BLOOD COUNT 4.61 10^6/uL (4.00-5.40); WHITE BLOOD COUNT 10.5 10^3/uL (4.0-10.0)
[2020-06-08 12:31] LABS: ALBUMIN 3.4 GM/DL (3.2-5.2); ALT/SGPT 18 U/L (12-78); BILIRUBIN,DIRECT 0.1 MG/DL (0.0-0.2); BILIRUBIN,TOTAL 0.3 MG/DL (0.2-1.0); BLOOD UREA NITROGEN 12 MG/DL (7-18); CARBON DIOXIDE LEVEL 28 MEQ/L (21-32); CHLORIDE LEVEL 106 MEQ/L (98-107); CREATININE FOR GFR 0.63 MG/DL (0.55-1.30); GLOMERULAR FILTRATION RATE > 60.0 (>60); GLUCOSE, FASTING 86 MG/DL (70-100); LIPASE 48 U/L (73-393); POTASSIUM SERUM 3.7 MEQ/L (3.5-5.1); SODIUM LEVEL 139 MEQ/L (136-145); TOTAL PROTEIN 7.4 GM/DL (6.4-8.2)
[2020-06-08 12:39] LABS: HCG, SERUM QUALITATIVE NEGATIVE (NEGATIVE)
--- NOTE | 2020-06-08 14:54 | REPVR ---
PROCEDURE INFORMATION: Exam: US Pelvis Complete, Transabdominal and US Pelvis, Transvaginal Exam date and time: 06/08/2020 2:17 PM Age: 29 years old Clinical indication: Pelvic pain TECHNIQUE: Imaging protocol: Real-time transabdominal and transvaginal pelvic ultrasound (complete) with image documentation. Transvaginal imaging was used for better evaluation of the endometrium and adnexa. COMPARISON: US PELVIC NON-OB COMPLETE 01/11/2018 2:13 PM FINDINGS: Uterus/cervix: The uterus measures 96 x 48 x 58 mm. The endometrium is 1 cm. Right adnexa: The right ovary has normal flow. There is a hypoechoic area measuring 18 x 14 x 17 mm. Left adnexa: The left ovary is not able to be seen on either transabdominal or endovaginal study. Intraperitoneal space: None. Urinary bladder: Normal. IMPRESSION: Hypoechoic mass lesion noted involving the right ovary. This could be hemorrhagic or complicated cyst. Other etiologies cannot be excluded. This was not seen on the previous examination. Electronically signed by: Lito Zamora On 06/08/2020 14:54:37 PM
[2020-06-08 16:39] LABS: CHLAMYDIA DNA AMPLIFICATION NEGATIVE (NEGATIVE); GC DNA AMPLIFICATION NEGATIVE (NEGATIVE)
[2020-06-08 17:00] VITALS: BP 140/81
--- NOTE | 2020-06-10 18:40 | ED PDOC ---
Post-Departure Follow-Up ina [facility] faxed formal report of pelvic us for fu Beena Loera MD Jun 10, 2020 18:40
[2020-06-24] MEDS ORDERED: RALT40TA (12:22)
[2020-06-24] MEDS ORDERED: TRUVTAB (12:22)
== END 2020-06-08 17:02 | disposition home or self-care (01) ==
LOC: M ED 11:15
DX: N83.201 Unspecified ovarian cyst, right side (principal); R87.619 Unspecified abnormal cytological findings in specimens from cervix uteri; I10 Essential (primary) hypertension

== ENCOUNTER → 2020-06-26 | Outpatient (CLI) | payer BC ==
[~2020-06-26] MED LIST changes: +OXYC1TAB23 PO; +RALT40TA; +TRUVTAB
== END ==
LOC: M LABSMTC 09:31
PROVIDERS: ATTEND Anesthesiology
DX: Z01.812 Encounter for preprocedural laboratory examination (principal); Z20.828 Contact with and (suspected) exposure to other viral communicable diseases
CPT/HCPCS: C9803; U0003

== ENCOUNTER 2020-07-01 13:32 | Day surgery (SDC) | payer BC ==
[~2020-07-01] VITALS: Ht 167.6 cm; Wt 121.3 kg
[~2020-07-01 13:32] MED LIST changes: -OXYC1TAB23 PO
[2020-07-01 14:22] LABS: HEMATOCRIT 42.5 % (36.0-47.0); HEMOGLOBIN 14.6 g/dl (12.0-15.5); MEAN CORPUSCULAR HEMOGLOBIN 30.4 pg (27.0-33.0); MEAN CORPUSCULAR HGB CONC 34.4 g/dl (32.0-36.5); MEAN CORPUSCULAR VOLUME 88.5 fl (80.0-96.0); PLATELET COUNT, AUTOMATED 437 10^3/uL (150-450)
[2020-07-01] MEDS ORDERED: MIDAZOLAM INJ 2MG/2ML VIAL (J2250 PER 1MG) As Ordered ONE (14:25)
[2020-07-01] MEDS ORDERED: fentaNYL 100 MCG/2 ML INJECTION (J3010) As Ordered ONE (14:25)
[2020-07-01] MEDS ORDERED: propofoL 200 MG/20 ML VIAL As Ordered ONE ×2 (14:31→15:53)
[2020-07-01] MEDS ORDERED: ROCURONIUM BROMIDE 50 MG/5 ML VIAL As Ordered ONE ×2 (14:33→15:50)
[2020-07-01] MEDS ORDERED: LIDOCAINE 2% 100MG/5ML SDV (FOR ANES.) As Ordered ONE (14:33)
[2020-07-01] MEDS ORDERED: dexameTHASONE 4 MG/ML 1ML VIAL (J1100 PER 1MG) As Ordered ONE (14:36)
[2020-07-01] MEDS ORDERED: BUPIVACAINE HCL 0.25% 30ML VIAL As Ordered ONE (14:58)
--- NOTE | 2020-07-01 15:08 | ROOPDOC ---
[facility] Report Of Operation Report of Operation DATE OF PROCEDURE: 07/01/2020 PREOPERATIVE DIAGNOSIS: 1. Chronic pelvic pain. POSTOPERATIVE DIAGNOSIS: 1. Chronic pelvic pain. SURGEON: Kristi Walker M.D. DYNAMICS AX TECHNICAL ARCHITECT: None. ANESTHESIA: General endotracheal anesthesia. ESTIMATED BLOOD LOSS: 10 mL INTRAVENOUS FLUIDS: 800 mL of lactated ringer solution. URINE OUTPUT: 100 mL. PREOPERATIVE ANTIBIOTICS: None. OPERATIVE FINDINGS: Patient with a normal appearing uterus. Dilated pelvic vessels consistent with pelvic congestion syndrome DESCRIPTION OF OPERATION: After informed consent was obtained and written consent was reviewed the patient was brought to the operating room where general endotracheal anesthesia was obtained and she was then placed in lithotomy position and was prepped and draped in a normal sterile fashion. A time out in the operating room was then performed identifying the patient, procedure to be performed as well as drug allergy. A bivalve speculum was then placed revealing the cervix. The anterior lip of the cervix was grasped with a single tooth tenaculum. A Hulka tenaculum was then advanced through the cervical os for means to manipulate the uterus. A single tooth tenaculum as well as a speculum was then removed. A Bustos catheter was then placed and set to gravity. Gloves were changed and attention was then returned to the patient's abdomen where an incision was made in the umbilicus. A 5 mm trocar and sleeve was then advance through this incision. Laparoscope was replaced revealing intraabdominal placement. A pneumoperitoneum was then obtained with C02 gas. Abdomen was then surveyed showing normal liver edge , appendix was visualized and appeared to be normal. Normal appearing uterus. Dilated pelvic vessels sidewall consistent with pelvic congestion syndrome The pneumoperitoneum was then released and the hysteroscope was then removed. Trocar removed. Incision site was closed with #4-0 Monocryl and was dressed with Dermabond. KRISTI WALKER MD. Jul 01, 2020 15:08
[2020-07-01] MEDS ORDERED: ONDANSETRON 4MG/2ML VIAL As Ordered ONE (15:50)
[2020-07-01] MEDS ORDERED: KETOROLAC 60MG 2ML VIAL As Ordered ONE (15:50)
[2020-07-01] MEDS ORDERED: SUGAMMADEX SODIUM 500 MG/5 ML VIAL (BRIDION) As Ordered ONE (15:51)
[2020-07-01] MEDS ORDERED: ACETAMINOPHEN 1000MG 100ML IV BTL (OFIRMEV) (J0131 PER 10MG) As Ordered ONE (16:01)
[2020-07-01] MEDS ORDERED: OXYC1TAB23 PO (16:20)
[2020-07-01] MEDS ORDERED: oxyCODONE 5MG TAB PO PRN (16:45)
[2020-07-01] MEDS ORDERED: LR 1,000 ML IV SCH (16:45)
[2020-07-01] MEDS ORDERED: ONDANSETRON 4MG/2ML VIAL IV PRN (16:45)
[2020-07-01] MEDS ORDERED: PERCOCET 5MG/325MG TAB PO PRN (16:45)
[2020-07-01] MEDS ORDERED: fentaNYL 100 MCG/2 ML INJECTION (J3010) IV PRN (16:45)
[2020-07-01 18:00] VITALS: BP 129/76
[2020-07-01] MEDS ORDERED: KETOROLAC 30 MG/ML 1ML VIAL IV SCH (22:00)
[2020-07-02] MEDS ORDERED: LR 1,000 ML IV ONE (07:00)
== END 2020-07-01 18:00 | disposition home or self-care (01) ==
LOC: M SDC 13:32
PROVIDERS: ATTEND Obstetrics & Gynecology
DX: N94.89 Other specified conditions associated with female genital organs and menstrual cycle (principal); I10 Essential (primary) hypertension; G43.909 Migraine, unspecified, not intractable, without status migrainosus; Z79.899 Other long term (current) drug therapy; Z91.040 Latex allergy status
CPT/HCPCS: 36415; 49320; 81025; 85027; 86850; 86900; 86901; J0131; J1100; J1885; J2250; J2405; J3010

== ENCOUNTER → 2020-07-21 | Outpatient (CLI) | payer BC ==
[~2020-07-21] MED LIST changes: +OXYC1TAB23 PO
== END ==
LOC: M LABSMTC 10:12
PROVIDERS: ATTEND Pediatrics
DX: Z20.828 Contact with and (suspected) exposure to other viral communicable diseases (principal)

== ENCOUNTER → 2020-07-29 | Outpatient (CLI) | payer BC | LOC: M LAB 08:50 | PROVIDERS: ATTEND Internal Medicine Infectious Disease | DX: Z77.21 Contact with and (suspected) exposure to potentially hazardous body fluids (principal) ==

== ENCOUNTER → 2020-09-08 | Outpatient (REF) | payer SELFPAY | LOC: M LABSMTC 08:50 → EDSTATUS 10:35 | PROVIDERS: ATTEND Pediatrics | DX: Z20.828 Contact with and (suspected) exposure to other viral communicable diseases (principal) ==

== ENCOUNTER 2020-10-24 20:47 | Emergency (ER) | payer BC ==
[~2020-10-24] VITALS: Ht 167.6 cm; Wt 121.2 kg
--- OUTSIDE RECORDS SUMMARY | 2020-10-24 20:55 | CCD | Continuity of Care Document ---
Author Author Katheryn QUEEN Organization Unknown Address [address] [place] [address] Phone [phone] Care Team Providers Care Welfare Eligibility Worker Name Role Phone [facility]M [phone] [facility] [phone] Problems Description No Information Available Social History Type Date Description Comments Sex Unknown ETOH Use Occasionally consumes alcohol Tobacco Use Start: Unknown Patient has never smoked Smoking Status Reviewed: 08/27/20 Patient has never smoked Allergies, Adverse Reactions, Alerts Active Allergies Reaction Severity Comments Date NKDA 07/25/2018 Latex rash 08/27/2020 Environmental 08/27/2020 Medications Active Medications SIG Qnty Indications Ordering Provide r Date Fluticasone Propionate 50mcg/Act Suspension 2 spray each nostril every day 16gm J06.9 Chester Fitzgerald JR., M.D. 07/25/2018 Chlorthalidone Tablets Unknown Loratadine 10mg Capsules 1 tab by mouth every day as needed for allergy sx Unknown Immunizations Description No Information Available Vital Signs Date Vital Result Comment 08/27/2020 6:42pm BP Systolic 137 mmHg BP Diastolic 90 mmHg Heart Rate 82 /min Respiratory Rate 14 /min O2 % BldC Oximetry 98 % Body Temperature 98.6 F Weight 253.00 lb Height 66 inches 5'6" BMI (Body Mass Index) 40.8 kg/m2 Pain Level 0 07/25/2018 4:44pm BP Systolic 140 mmHg BP Diastolic 101 mmHg Heart Rate 103 /min Respiratory Rate 18 /min O2 % BldC Oximetry 98 % Body Temperature 98.0 F Weight 244.00 lb Height 66 inches 5'6" BMI (Body Mass Index) 39.4 kg/m2 Pain Level 2 Results Description No Information Available Procedures Description No Information Available Medical Devices Description No Information Available Encounters Type Date Location Provider Dx Diagnosis Office Visit 08/27/2020 5:50p Main Office Vicki Queen NP J30. 9 Allergic rhinitis, unspecified Z20.828 Contact w and exposure to ot h viral communicable diseases Assessments Date Code Description Provider 08/27/2020 J30.9 Allergic rhinitis, unspecified S naomi Queen NP 08/27/2020 Z20.828 Contact with and (morton spected) exposure to other viral communicable diseases Vicki Queen NP Plan of Treatment 08/27/2020 - Vicki Queen NP* J30.9 Allergic rhinitis, unspecified* Comments:* rest/time/fluidssupportive caref/u PRN or with PCPpatient v/u & agrees to plan * Z20.828 Contact with and (suspected) exposure to other viral communicable diseases* Comments:* tested for COVID-19 today via [facility] & Influenza A/B, all results were reported as negativelikely other viral etiology. infectious course & use of proper protective equipment, adequate handwashing, wearing a mask & keeping 6+ feet distance from others reviewed with patient. advised supportive care, rest/time/fluidsf/u PRNpatient v/u & agrees to plan Functional Status Description No Information Available Mental Status Description No Information Available Referrals Description No Information Available
--- OUTSIDE RECORDS SUMMARY | 2020-10-24 20:55 | CCD ---
Author Author [facility] Organization [facility] Address Unknown Phone Unavailable Care Team Providers Care Dramatic Coach Name Role Phone Kristi Walker Unavailable PROBLEMS Type Condition ICD9-CM Code [id number] Code Onset Dates Condition S tatus SNOMED Code Notes Problem Acne vulgaris L70.0 Active 51259074 ALLERGIES Allergen (clinical drug ingredient) Drug/Non Drug Allergy do cumented on EMR Reaction Allergy Type Onset Date Status seasonal Unknown Non Drug Allergy 06/25/2020 Active ENCOUNTERS from 1988 to 2020-08-08 Encounter Location Date Provider Diagnosis [facility] [address] [place] [address] Jun, Kritsi Walker Pelvic pain R10.2 IMMUNIZATIONS No Information SOCIAL HISTORY Tobacco Use: Social History Observation Description Date Details (start date - stop date) Never Smoker Sex Assigned At : Social History Observation Description Sex Assigned At Unknown Alcohol Screening: Question Answer Notes Did you have a drink containing alcohol in the past year? No Points 0 Interpretation Negative Tobacco Use: Question Answer Notes Are you a: never smoker REASON FOR REFERRAL No Information VITAL SIGNS Weight 271 lbs Jun, Height 66.5 in Jun, BMI 43.08 kg/m2 Jun, Blood pressure systolic 122 mm Hg Jun, Blood pressure diastolic 76 mm Hg Jun, MEDICATIONS Medication SIG (Take, Route, Frequency, Duration) Notes Start Da te End Date Status Zyrtec Allergy 10 MG 1 tablet Orally Once a day Active Clotrimazole-Betamethasone 1-0.05 % 1 application Exte rnally Twice a day to area on scalp with hairloss for 30 days Not-Taking Chlophedianol-Chlorcyclizine 25 once a day 24 Active PROCEDURES No Information RESULTS No Results REASON FOR VISIT PRE OP SURG 07/01/20 MEDICAL (GENERAL) HISTORY Type Description Date Medical History HTN Surgical History Cyst removal Surgical History tonsillectomy 04/2020 Surgical History laparoscopy Hospitalization History Surgery related only Goals Section No Information Health Concerns No Information MEDICAL EQUIPMENT No Information MENTAL STATUS No Information FUNCTIONAL STATUS No Information ASSESSMENTS Encounter Date Diagnosis Assessment Notes Treatment Notes Treatm ent Clinical Notes Jun, Pelvic pain (ICD-10 - R10.2) Pre-Operative CounselingProcedure: dx/op laparoscopySurgeon: Kristi Walker MD Patient has been counseling regarding the risks of the procedure to include anesthesia risks to include , bleeding/need for blood transfusion, infection, damage to internal organs, uterine perforation, postoperative pain and need for future surgery based on findings. She understands these risks and wishes to proceed with the above procedures. PLAN OF TREATMENT Treatment Notes Assessment Notes Clinical Notes Pelvic pain Pre-Operative Counse lingProcedure: dx/op laparoscopySurgeon: SARIKA Orozcoatient has been counseling regarding the risks of the procedure to include anesthesia risks to include , bleeding/need for blood transfusion, infection, damage to internal organs, uterine perforation, postoperative pain and need for future surgery based on findings. She understands these risks and wishes to proceed with the above procedures. Next Appt Details Provider Name:Kristi Walker, 2020-09-21 0 1:00:00 PM, [address] [place] [address], [phone], Provider Name:Kristi Joel Aaron 2020-10-21 0 8:20:00 AM, [address] [place] [address], [phone], Provider Name:Kristi Maldonado Aaron 2020-11-17 0 8:20:00 AM, [address] [place] [address], [phone], Insurance Providers Payer Name Payer Address Payer Phone Insured Name Patient Relati onship to Insured Coverage Start Date Coverage End Date [facility] BCBS PPO [id number] [id number] ALIN MONTALVO self
--- OUTSIDE RECORDS SUMMARY | 2020-10-24 20:55 | CCD ---
Author Author [facility] Organization [facility] Address Unknown Phone Unavailable Care Team Providers Care Fringe Weaver Name Role Phone King Samson Unavailable PROBLEMS Type Condition ICD9-CM Code ULX12-HR Code Onset Dates Condition S tatus SNOMED Code Notes Problem Acne vulgaris L70.0 Active 98658319 ALLERGIES Allergen (clinical drug ingredient) Drug/Non Drug Allergy do cumented on EMR Reaction Allergy Type Onset Date Status seasonal Unknown Non Drug Allergy 06/25/2020 Active ENCOUNTERS from 1988 to 2020-08-01 Encounter Location Date Provider Diagnosis [address] [address] Jul, King Samson IMMUNIZATIONS No Information SOCIAL HISTORY Tobacco Use: [...] REASON FOR REFERRAL No Information VITAL SIGNS No information MEDICATIONS Medication SIG (Take, Route, Frequency, Duration) Notes Start Da te End Date Status Zyrtec Allergy 10 MG 1 tablet Orally Once a day Active Clotrimazole-Betamethasone 1-0.05 % 1 application Exte rnally Twice a day to area on scalp with hairloss for 30 days Not-Taking Chlophedianol-Chlorcyclizine 25 once a day 24 Active PROCEDURES No Information RESULTS No Results REASON FOR VISIT Blood work results MEDICAL (GENERAL) HISTORY Type Description Date Medical History HTN Surgical History Cyst removal Surgical History tonsillectomy 04/2020 Surgical History laparoscopy Hospitalization History Surgery related only Goals Section No Information Health Concerns No Information MEDICAL EQUIPMENT No Information MENTAL STATUS No Information FUNCTIONAL STATUS No Information ASSESSMENTS No Information PLAN OF TREATMENT Next Appt Details Provider Name:Kristi Walker, 2020-09-21 0 1:00:00 PM, [address] [place] [address], [phone], Provider Name:Kristi Walker, 2020-10-21 0 8:20:00 AM, [address] [place] [address], [phone], Provider Name:Kristi Walker, 2020-11-17 0 8:20:00 AM, [address] [place] [address], [phone], Insurance Providers Payer Name Payer Address Payer Phone Insured Name Patient Relati onship to Insured Coverage Start Date Coverage End Date [employer] PPO [phone] [address] ALIN MONTALVO self
--- OUTSIDE RECORDS SUMMARY | 2020-10-24 20:55 | CCD ---
Author Author [facility] Organization [facility] Address Unknown Phone Unavailable Care Team Providers Care Telephone Supervisor Name Role Phone King Samson Unavailable PROBLEMS Type Condition ICD9-CM Code FDS71-QR Code Onset Dates Condition S tatus SNOMED Code Notes Problem Acne vulgaris L70.0 Active 90247748 ALLERGIES Allergen (clinical drug ingredient) Drug/Non Drug Allergy do cumented on EMR Reaction Allergy Type Onset Date Status seasonal Unknown Non Drug Allergy 06/25/2020 Active ENCOUNTERS from 1988 to 2020-07-29 Encounter Location Date Provider Diagnosis [address] [address] Jul, King Samson Exposure to bloodborne pathogen Z77.21 IMMUNIZATIONS No Information SOCIAL HISTORY Tobacco Use: [...] Information RESULTS No Results REASON FOR VISIT labs MEDICAL (GENERAL) HISTORY Type Description Date Medical History HTN Surgical History Cyst removal Surgical History tonsillectomy 04/2020 Surgical History laparoscopy Hospitalization History Surgery related only Goals Section No Information Health Concerns No Information MEDICAL EQUIPMENT No Information MENTAL STATUS No Information FUNCTIONAL STATUS No Information ASSESSMENTS Encounter Date Diagnosis Assessment Notes Treatment Notes Treatm ent Clinical Notes Jul, Exposure to bloodborne pathogen (ICD-10 - Z77.21 ) PLAN OF TREATMENT Treatment Notes Test Name Order Date HIV 1&2 ANTIBODY SCREEN 2020-07-29 Next Appt Details Provider Name:Kristi Walker, 2020-09-21 0 1:00:00 PM, [address] [place] [address], [phone], Provider Name:Kristi Walker, 2020-10-21 0 8:20:00 AM, [address] [place] [address], [phone], Provider Name:Kristi Walker, 2020-11-17 0 8:20:00 AM, [address] [place] [address], [phone], Insurance Providers Payer Name Payer Address Payer Phone Insured Name Patient Relati onship to Insured Coverage Start Date Coverage End Date [employer] PPO [phone] [address] ALIN MONTALVO self
--- OUTSIDE RECORDS SUMMARY | 2020-10-24 20:55 | CCD ---
Author Author [facility] Organization [facility] Address Unknown Phone Unavailable Care Team Providers Care Mineral Engineer Name Role Phone Kristi Walker Unavailable PROBLEMS Type Condition ICD9-CM Code VWN88-ZM Code Onset Dates Condition S tatus SNOMED Code Notes Problem Acne vulgaris L70.0 Active 67591023 Problem Pelvic congestion syndrome N94.89 Active 35427 007 ALLERGIES Allergen (clinical drug ingredient) Drug/Non Drug Allergy do cumented on EMR Reaction Allergy Type Onset Date Status seasonal Unknown Non Drug Allergy 06/25/2020 Active ENCOUNTERS from 1988 to 2020-08-26 Encounter Location Date Provider Diagnosis [facility] [place] [address] Aug, Kristi Walker IMMUNIZATIONS No Information SOCIAL HISTORY Tobacco Use: [...] Information RESULTS No Results REASON FOR VISIT BRIAN MEDICAL (GENERAL) HISTORY Type Description Date Medical History HTN Surgical History Cyst removal Surgical History tonsillectomy 04/2020 Surgical History laparoscopy Hospitalization History Surgery related only Goals Section No Information Health Concerns No Information MEDICAL EQUIPMENT No Information MENTAL STATUS No Information FUNCTIONAL STATUS No Information ASSESSMENTS No Information PLAN OF TREATMENT Next Appt Details Provider Name:Kristi Walker, 2020-11-11 1 1:20:00 AM, [address] [place] [address], [phone], Provider Name:Kristi Kayen, 2020-11-18 1 0:15:00 AM, [address] [place] [address], [phone], Provider Name:Kristi Maldonado Walker, 2020-12-04 0 1:20:00 PM, [address] [place] [address], [phone], Provider Name:Kristi Walker, 2020-12-29 0 1:20:00 PM, [address] [place] [address], [phone], Insurance Providers Payer Name Payer Address Payer Phone Insured Name Patient Relati onship to Insured Coverage Start Date Coverage End Date [employer] PPO [phone] [address] ALIN MONTALVO self
--- OUTSIDE RECORDS SUMMARY | 2020-10-24 20:55 | CCD ---
Author Author [facility] Organization [facility] Address Unknown Phone Unavailable Care Team Providers Care Office Cashier Name Role Phone Miguel Andreea Keesha [facility]ISTS' Unavailable Unavailable Andreea [facility] Unavailable Unavailable Miguel Andreea Keesha MO[facility] ARTISTS' Unavailable Unavailable Miguel Andreea Keesha MODEL ARTISTS' Unavailable Unavailable Andreea [place] [facility]' Unavailable Unavailable Andreea [place] [facility] ARTISTS' Unavailable Unavailable Sophie Gomez MD Unavailable Unavailable Sophie Gomez MD Unavailable Unavailable Sophie Gomez MD Unavailable Unavailable Sophie Gomez MD Unavailable Unavailable Sophie Gomez MD Unavailable Unavailable Sophie Gomez MD Unavailable Unavailable Sophie Gomez MD Unavailable Unavailable Sophie Gomez MD Unavailable Unavailable Sopihe Gomez MD Unavailable Unavailable Sophie Gomez MD Unavailable Unavailable Sophie Gomez MD Unavailable Unavailable Sophie Gomez MD Unavailable Unavailable Sophie Gomez MD Unavailable Unavailable Sophie Gomez MD Unavailable Unavailable Sophie Gomez MD Unavailable Unavailable Sophie Gomez MD Unavailable Unavailable Sophie Gomez MD Unavailable Unavailable Sophie Gomez MD Unavailable Unavailable Sophie Gomze MD Unavailable Unavailable Sophie Gomez MD Unavailable Unavailable Sophie Gomez MD Unavailable Unavailable Sophie Gomez MD Unavailable Unavailable Sophie Gomez MD Unavailable Unavailable Sophie Gomez MD Unavailable Unavailable Sophie Gomez MD Unavailable Unavailable Sophie Gomez MD Unavailable Unavailable Sophie Gomez MD Unavailable Unavailable Sophie Gomez MD Unavailable Unavailable Sophie Gomez MD Unavailable Unavailable Sophie Gomez MD Unavailable Unavailable Sophie Gomez MD Unavailable Unavailable Sophie Gomez MD Unavailable Unavailable Sophie Gomez MD Unavailable Unavailable Sophie Gomez MD Unavailable Unavailable Sophie Gomez MD Unavailable Unavailable Sophie Gomez MD Unavailable Unavailable Sophie Gomez MD Unavailable Unavailable Sophie Gomez MD Unavailable Unavailable Sophie Gomez MD Unavailable Unavailable Sophie Gmoez MD Unavailable Unavailable Sophie Gomez MD Unavailable Unavailable Sophie Gomez MD Unavailable Unavailable Sophie Gomez MD Unavailable Unavailable Sophie Gomez MD Unavailable Unavailable Sophie Gomez MD Unavailable Unavailable Sophie Gomez MD Unavailable Unavailable Sophie Gomez MD Unavailable Unavailable Sophie Gomez MD Unavailable Unavailable Sophie Gomez MD Unavailable Unavailable Sophie Gomez MD Unavailable Unavailable Sophie Gomez MD Unavailable Unavailable Sophie Gomez MD Unavailable Unavailable Sophie Gomez MD Unavailable Unavailable Sophie Gomez MD Unavailable Unavailable Sophie Gomez MD Unavailable Unavailable Sophie Gomez MD Unavailable Unavailable Sophie Gomez MD Unavailable Unavailable Sophie Gomez MD Unavailable Unavailable Sophie Gomez MD Unavailable Unavailable Sophie Gomez MD Unavailable Unavailable Sophie Gomez MD Unavailable Unavailable Sophie Gomez MD Unavailable Unavailable Sophie Gomez MD Unavailable Unavailable Sophie Gomez MD Unavailable Unavailable Sophie Gomez MD Unavailable Unavailable Sophie Gomez MD Unavailable Unavailable Sophie Gomez MD Unavailable Unavailable Sophie Gomez MD Unavailable Unavailable Sophie Gomez MD Unavailable Unavailable Sophie Gomez MD Unavailable Unavailable Sophie Gomez MD Unavailable Unavailable Sophie Gomez MD Unavailable Unavailable Sophie Gomez MD Unavailable Unavailable Sophie Gomez MD Unavailable Unavailable Sophie Gomez MD Unavailable Unavailable Sophie Gomez MD Unavailable Unavailable Sophie Gomez MD Unavailable Unavailable Sophie Gomez MD Unavailable Unavailable Sophie Gomez MD Unavailable Unavailable Sophie Gomez MD Unavailable Unavailable Sophie Gomez MD Unavailable Unavailable Sophie Gomez MD Unavailable Unavailable Sophie Gomez MD Unavailable Unavailable Sophie Gomez MD Unavailable Unavailable Sophie Gomez MD Unavailable Unavailable Sophie Gomez MD Unavailable Unavailable Sophie Gomez MD Unavailable Unavailable Sophie Gomez MD Unavailable Unavailable Sophie Gomez MD Unavailable Unavailable Anselmo Agrawal MD Unavailable Unavailable Anselmo Agrawal MD Unavailable Unavailable Anselmo Agrawal MD Unavailable Unavailable Anselmo Agrawal MD Unavailable Unavailable Anselmo Agrawal MD Unavailable Unavailable Anselmo Agrawal MD Unavailable Unavailable Anselmo Agrawal MD Unavailable Unavailable Anselmo Agrawal MD Unavailable Unavailable Anselmo Agrawal MD Unavailable Unavailable Anselmo Agrawal MD Unavailable Unavailable Anselmo Agrawal MD Unavailable Unavailable Anselmo Agrawal MD Unavailable Unavailable Anselmo Agrawal MD Unavailable Unavailable Anselmo Agrawal MD Unavailable Unavailable Anselmo Agrawal MD Unavailable Unavailable Anselmo Agrawal MD Unavailable Unavailable Anselmo Agrawal MD Unavailable Unavailable Anselmo Agrawal MD Unavailable Unavailable Anselmo Agrawal MD Unavailable Unavailable Anselmo Agrawal MD Unavailable Unavailable Anselmo Agrawal MD Unavailable Unavailable Anselmo Agrawal MD Unavailable Unavailable Anselmo Agrawal MD Unavailable Unavailable Anselmo Agrawal MD Unavailable Unavailable Anselmo Agrawal MD Unavailable Unavailable Anselmo Agrawal MD Unavailable Unavailable Anselmo Agrawal MD Unavailable Unavailable Anselmo Agrawal MD Unavailable Unavailable Anselmo Agrawal MD Unavailable Unavailable Anselmo Agrawal MD Unavailable Unavailable Anselmo Agrawal MD Unavailable Unavailable Anselmo Agrawal MD Unavailable Unavailable Anselmo Agrawal MD Unavailable Unavailable Anselmo Agrawal MD Unavailable Unavailable Anselmo Agrawal MD Unavailable Unavailable Anselmo Agrawal MD Unavailable Unavailable Anselmo Agrawal MD Unavailable Unavailable Anselmo Agrawal MD Unavailable Unavailable Anselmo Agrawal MD Unavailable Unavailable Anselmo Agrawal MD Unavailable Unavailable Anselmo Agrawal MD Unavailable Unavailable Anselmo Agrawal MD Unavailable Unavailable Anselmo Agrawal MD Unavailable Unavailable Anselmo Agrawal MD Unavailable Unavailable Anselmo Agrawal MD Unavailable Unavailable Anselmo Agrawal MD Unavailable Unavailable Anselmo Agrawal MD Unavailable Unavailable Aneslmo Agrawal MD Unavailable Unavailable Anselmo Agrawal MD Unavailable Unavailable Anselmo Agrawal MD Unavailable Unavailable Anselmo Agrawal MD Unavailable Unavailable Anselmo Agrawal MD Unavailable Unavailable Anselmo Agrawal MD Unavailable Unavailable Anselmo Agrawal MD Unavailable Unavailable Anselmo Agrawal MD Unavailable Unavailable Anselmo Agrawal MD Unavailable Unavailable Anselmo Agrawal MD Unavailable Unavailable Anselmo Agrawal MD Unavailable Unavailable Anselmo Argawal MD Unavailable Unavailable Anselmo Agrawal MD Unavailable Unavailable Mg, Vicki IMCU SPECIALIST Unavailable Unavailable Mg, Vicki IMCU SPECIALIST Unavailable Unavailable Mg, Vicki IMCU SPECIALIST Unavailable Unavailable Mg, Vicki IMCU SPECIALIST Unavailable Unavailable Mg, Vicki IMCU SPECIALIST Unavailable Unavailable Mg, Vicki IMCU SPECIALIST Unavailable Unavailable Mg, Vicki IMCU SPECIALIST Unavailable Unavailable Mg, Vicki IMCU SPECIALIST Unavailable Unavailable Mg, Vicki IMCU SPECIALIST Unavailable Unavailable Mg, Vicki IMCU SPECIALIST Unavailable Unavailable Mg, Vicki IMCU SPECIALIST Unavailable Unavailable Alma II, Car PA Unavailable Unavailable Alma II, Car PA Unavailable Unavailable Alma II, Car PA Unavailable Unavailable Alma II, Car PA Unavailable Unavailable Alma II, Car PA Unavailable Unavailable Alma II, Car PA Unavailable Unavailable Alma II, Car PA Unavailable Unavailable Alma II, Car PA Unavailable Unavailable Alma II, Car PA Unavailable Unavailable Alma II, Car PA Unavailable Unavailable Alma II, Car PA Unavailable Unavailable Alma II, Car PA Unavailable Unavailable Alma II, Car PA Unavailable Unavailable Alma II, Car PA Unavailable Unavailable Alma II, Car PA Unavailable Unavailable Alma II, Car PA Unavailable Unavailable Alma II, Car PA Unavailable Unavailable Re-disclosure Warning The records that you are about to access may contain information from federally-assisted alcohol or drug abuse programs. If such information is present, then the following federally mandated warning applies: This information has been disclosed to you from records protected by federal confidentiality rules (42 CFR part 2). The federal rules prohibit you from making any further disclosure of this information unless further disclosure is expressly permitted by the written consent of the person to whom it pertains or as otherwise permitted by 42 CFR part 2. A general authorization for the release of medical or other information is NOT sufficient for this purpose. The Federal rules restrict any use of the information to criminally investigate or prosecute any alcohol or drug abuse patient.The records that you are about to access may contain highly sensitive health information, the redisclosure of which is protected by Article 27-F of the [facility] Public Health law. If you continue you may have access to information: Regarding HIV / AIDS; Provided by facilities licensed or operated by the [facility] Office of Mental Health; or Provided by the [facility] Office for People With Developmental Disabilities. If such information is present, then the following [facility] mandated warning applies: This information has been disclosed to you from confidential records which are protected by state law. State law prohibits you from making any further disclosure of this information without the specific written consent of the person to whom it pertains, or as otherwise permitted by law. Any unauthorized further disclosure in violation of state law may result in a fine or fci sentence or both. A general authorization for the release of medical or other information is NOT sufficient authorization for further disc losure. Allergies and Adverse Reactions Type Description Substance Reaction Status Data Source(s ) Propensity to adverse reactions seasonal Propensity to ad verse reactions Unknown Active [facility]) Propensity to adverse reactions seasonal Propensity to ad verse reactions Unknown Active eCW1 ([facility]) Propensity to adverse reactions seasonal Propensity to ad verse reactions Unknown Active eCW1 ([facility]) Propensity to adverse reactions seasonal Propensity to ad verse reactions Unknown Active eCW1 ([facility]) Propensity to adverse reactions seasonal Propensity to ad verse reactions Unknown Active eCW1 ([facility]) Propensity to adverse reactions seasonal Propensity to ad verse reactions Unknown Active eCW1 ([facility]) Family History Family Member Name Family Member Gender Family Member Status Date o f Status Description Data Source(s) Unknown Female Diagnosis 07/09/2018 12:00:00 AM EDT NextGen ([facility]) Unknown Female Diagnosis 07/22/2013 12:00:00 AM EST NextGen ([facility]) Unknown Male Problem MEDENT ([facility]) Unknown Unknown Problem MEDENT ([facility]) Unknown Unknown Problem MEDENT ([facility]) Encounters Encounter Providers Location Date Indications Data Source(s ) Outpatient Attender: Vicki fitzpatrick 08/27/2020 04:50:00 PM EST MEDENT ([facility] [place] [address] [address] 08/26/2020 12:00:00 AM EST eCW1 ([facility]) [place] [address] [address] 07/31/2020 12:00:00 AM EST eCW1 ([facility]) [place] [address] [address] 07/29/2020 12:00:00 AM EST eCW1 ([facility]) (WC PO) [facility] [address] [place] [address] 07/16/2020 12:00:00 AM EST eCW1 ([facility]) [place] [address] [address] 06/25/2020 12:00:00 AM EDT [facility] [place] [address] [address] 06/12/2020 12:00:00 AM EDT eCW1 ([facility]) Outpatient Attender: Suresh Gomez MD 06/09/2020 08:32:[address] [facility] Outpatient Attender: Suresh Gomez MD 06/08/2020 01:13:[address] [facility] Outpatient Attender: Suresh MOULTON 06/08/2020 01:13:[address] [facility] Outpatient Attender: Suresh Gomez MD 06/08/2020 12:14:[address] [facility] Outpatient Attender: Suresh Gomez MD 06/08/2020 12:14:[address] [facility] Outpatient Attender: Car Agrawal MDAdmitter: Car Agrawal MD E [email or web address] 05/08/2020 12:51:59 PM EDT [facility] Pre Test Counseling Attender: Keesha HEATH [facility] 05/07/2020 01:30:00 PM EDT - 05/07/2020 01:30:00 PM EDT Other specified noninflammatory disorders of vaginaEncntr for special education aide exam (general) (routine) w/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Encounter for oth general cnsl and advice on contraceptionOther sex counselingHuman immunodeficiency virus [HIV] counselingEncounter for screening for human immunodeficiency virus NextGen ([facility]) Other specified noninflammatory disorder s of vagina Encntr for special education aide exam (general) (routine) w/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 Encounter for oth general cnsl and advic e on contraception Other sex counseling Human immunodeficiency virus [HIV] couns eling Encounter for screening for human immuno deficiency virus [facility] Dermatology [address] [place] [address] 02/26/2020 12:00:00 AM EDT eCW1 ([facility]) Outpatient Attender: Suresh MOULTON 02/18/2020 07:51:[address] [facility] Outpatient Attender: Car [place]/Jasmeet/Rein dl 02/18/2020 08:45:00 AM EDT MEDENT ([facility]) Outpatient Attender: Suresh MOULTON 02/08/2020 12:16:[address] [facility] Outpatient Attender: Suresh MOULTON 01/31/2020 08:16:[address] [facility] Outpatient Attender: Suresh MOULTON 01/27/2020 01:23:01 PM EDT [facility] Dermatology [address] [place] [id number] 01/20/2020 12:00:00 AM EDT eCW1 ([facility]) [facility] Pre Test Counseling Attender: Keesha HEATH PPNC[place] 01/17/2020 08:45:00 AM EDT - 01/17/2020 08:45:00 AM EDT Other specified noninflammatory disorders of vaginaEncounter for oth general cnsl and advice on contraceptionOther sex counselingHuman immunodeficiency virus [HIV] counselingEncounter for screening for human immunodeficiency virus NextGen ([facility]) Other specified noninflammatory disorder s of vagina Encounter for oth general cnsl and advic e on contraception Other sex counseling Human immunodeficiency virus [HIV] couns eling Encounter for screening for human immuno deficiency virus Outpatient Attender: Suresh MOULTON 01/14/2020 02:04:[address] [facility] Outpatient Attender: Suresh MOULTON 01/14/2020 01:38:[address] [facility] Outpatient Attender: Car Lee/[place]/Jasmeet/Rein dl 01/14/2020 08:45:00 AM EDT MEDENT ([facility] Dermatology [address] [place] [address] 01/14/2020 12:00:00 AM EDT eCW1 ([facility]) Outpatient Attender: Suresh Gomez MD FP 01/13/2020 03:29:[address] [facility] Outpatient Attender: Suresh Gomez MD FP 01/13/2020 02:30:[address] [facility] Outpatient Attender: Surehs Gomez MD FP 01/07/2020 12:06:[address] [facility] Outpatient Attender: Suresh Gomez MD FP 01/06/2020 04:48:[address] [facility] Outpatient Attender: Suresh Gomez MD FP 12/30/2019 09:01:[address] [facility] Outpatient Attender: Suresh Gomez MD FP 12/30/2019 10:49:00 AM EDT [facility] Dermatology [address] [place] [address] 12/30/2019 12:00:00 AM EDT eCW1 ([facility]) Outpatient Attender: Suresh Gomez MD FP 12/26/2019 01:30:[address] [facility] Outpatient Attender: Suresh Gomez MD FP 12/04/2019 10:42:[address] [facility] Outpatient Attender: Suresh Gomez MD FP 11/28/2019 09:01:[address] [facility] Outpatient Attender: Suresh Gomez MD FP 11/28/2019 02:14:[address] [facility] Outpatient Attender: Suresh Gomez MD FP 11/28/2019 02:13:[address] [facility] Outpatient Attender: Suresh Gomez MD FP 11/28/2019 12:40:45 PM EDT [facility] Outpatient 11/26/2019 10:03:00 AM EDT [facility] Outpatient Attender: Suresh Gomez MD FP 11/21/2019 11:20:[address] [facility] Outpatient Attender: Suresh Gomez MD FP 11/15/2019 08:02:59 PM EST [facility] Outpatient Attender: Suresh Gomez MD FP 11/06/2019 09:01:06 PM [facility] Outpatient Attender: Suresh Gomez MD FP 11/06/2019 08:52:02 AM [facility] Outpatient Attender: Suresh Gomez MD FP 11/06/2019 08:52:01 AM [facility] Outpatient Attender: Suresh Gomez MD FP 11/06/2019 08:51:03 AM [facility] Outpatient Attender: Suresh Gomez MD FP 11/06/2019 08:50:01 AM [facility] Outpatient Attender: Suresh Gomez MD FP 11/06/2019 08:23:01 AM [facility] Outpatient Attender: Suresh Gomez MD FP 11/06/2019 08:21:00 AM [facility] Outpatient Attender: Suresh Gomez MD FP 11/04/2019 02:15:01 PM [facility] Outpatient Attender: Suresh Gomez MD FP 11/02/2019 09:55:59 AM [facility] Outpatient Attender: Suresh Gomez MD FP 11/01/2019 10:38:00 AM [facility] Outpatient Attender: Suresh Gomez MD FP 10/29/2019 02:56:01 PM [facility] Outpatient Attender: Suresh Gomez MD FP 10/29/2019 10:44:03 AM [facility] Outpatient Attender: Suresh Gomez MD FP 10/28/2019 11:04:00 AM [facility] Attender: Keesha Rivera MO[facility] ARTISTS' PP[facility] [place] 10/11/2019 02:15:00 PM EST - 10/11/2019 02:15:00 PM [facility] Acute vaginitisEncounter for oth general cnsl and advice on contraceptionOther sex counselingHuman immunodeficiency virus [HIV] counselingEncounter for screening for human immunodeficiency virus NextGen ([facility]) Acute vaginitis Encounter for oth general cnsl and advic e on contraception Other sex counseling Human immunodeficiency virus [HIV] couns [facility] Encounter for screening for human immuno deficiency virus Outpatient Attender: Suresh Gomez MD FP 09/17/2019 10:35:01 AM [facility] Medications Medication Brand Name Start Date Product Form Dose Route Admi nistrative Instructions Pharmacy Instructions Status Indications Reaction Description Data Source(s) 5 mg 08/14/2020 12:00:00 AM EST tablet 30 TAKE ONE TABLET BY MOUTH EVERY DAY TAKE ONE TABLET BY MOUTH EVERY DAY SOLD: 08/15/2020 [facility] 50 mcg/actuation 08/14/2020 12:00:00 AM EST spray,suspension 16 SPRAY TWO SPRAYS IN EACH NOSTRIL TWICE A DAY FOR 10 DAYS SPRAY TWO SPRAYS IN EACH NOSTRIL TWICE A DAY FOR 10 DAYS SOLD: 08/15/2020 [facility] 150 mg 07/23/2020 12:00:00 AM EST tablet 2 TAKE 1 TABLET BY MOUTH ONCE AND 2ND TABLET IN 48 HOURS TAKE 1 TABLET BY MOUTH ONCE AND 2ND TABLET IN 48 HOURS SOLD: 07/23/2020 [facility] 875 mg 07/23/2020 12:00:00 AM EST tablet 14 TAKE ONE TABLET BY MOUTH EVERY 12 HOURS FOR 7 DAYS TAKE ONE TABLET BY MOUTH EVERY 12 HOURS FOR 7 DAYS JOHN [facility] 5-325 mg 07/01/2020 12:00:00 AM EDT tablet 24 TAKE ONE TO TWO TABLETS BY MOUTH EVERY 6 HOURS NEEDED FOR PAIN MAXIMUM DAILY DOSE = 6 TABLETS TAKE ONE TO TWO TABLETS BY MOUTH EVERY 6 HOURS NEEDED FOR PAIN MAXIMUM DAILY DOSE = 6 TABLETS SOLD: 07/01/2020 [facility] 400 mg 04/25/2020 12:00:00 AM EDT tablet 42 TAKE ONE TABLET BY MOUTH TWICE A DAY TAKE ONE TABLET BY MOUTH TWICE A DAY SOLD: 04/25/2020 [facility] 200-300 mg 04/25/2020 12:00:00 AM EDT tablet 21 TAKE ONE TABLET BY MOUTH EVERY DAY TAKE ONE TABLET BY MOUTH EVERY DAY SOLD: 04/25/2020 [facility] 4 mg 04/25/2020 12:00:00 AM EDT tablet,disintegrating 1 6 TAKE 1 TABLET BY MOUTH EVERY 6-8 HOURS TAKE 1 TABLET BY MOUTH EVERY 6-8 HOURS SOLD: 04/25/2020 [facility] 100 mg/5 mL 03/26/2020 12:00:00 AM EDT suspension 946 TAKE 20ML BY MOUTH EVERY 6 HOURS NEEDED TAKE 20ML BY MOUTH EVERY 6 HOURS NEEDED SOLD: 03/26/2020 [facility] 7.5-325 mg/15 mL 03/26/2020 12:00:00 AM EDT solution 300 TAKE 15ML BY MOUTH EVERY 6 HOURS NEEDED FOR PAIN MAXIMUM DAILY DOSE = 60ML TAKE 15ML BY MOUTH EVERY 6 HOURS NEEDED FOR PAIN MAXIMUM DAILY DOSE = 60ML SOLD: 03/26/2020 [facility] Ibuprofen 20 MG/ML Oral Suspension Ibuprofen 03/26/2020 12:00:00 AM EDT ORAL active MEDENT ([facility], ) Acetaminophen 21.7 MG/ML / Hydrocodone Bitartrate 0.5 MG/ML Oral Solution Hydrocodone Bitartrate/Acetaminophen 03/26/2020 12:00:00 AM EDT ORAL active MEDENT ([facility], ) 1-0.05 % 01/15/2020 12:00:00 AM EDT cream 45 APPLY TO AFFECTED AREA(S) TWO TIMES A DAY ON SCALP WITH HAIR LOSS APPLY TO AFFECTED AREA(S) TWO TIMES A DA Y ON SCALP WITH HAIR LOSS SOLD: 01/15/2020 [facility] Betamethasone 0.5 MG/ML / Clotrimazole 1 0 MG/ML Topical Cream Clotrimazole- Betamethasone 1-0.05 % Clotrimazole-Betamethasone 1-0.05 % 01/14/2020 12:00:0 0 AM EDT active 1 application eCW 1 ([facility]) 4 mg 01/10/2020 12:00:00 AM EDT tablet,disintegrating 8 TAKE ONE TABLET BY MOUTH EVERY 6-8 HOURS NEEDED FOR NAUSEA OR VOMITING TAKE ONE TABLET BY MOUTH EVERY 6-8 HOURS NEEDED FOR NAUSEA OR VOMITING SOLD: 01/11/2020 [facility] 300 mg 01/10/2020 12:00:00 AM EDT capsule 30 TAKE ONE CAPSULE BY MOUTH THREE TIMES A DAY TAKE ONE CAPSULE BY MOUTH THREE TIMES A DAY SOLD: 01/11/2020 [facility] 500 mg 01/07/2020 12:00:00 AM EDT capsule 28 TAKE ONE CAPSULE BY MOUTH FOUR TIMES A DAY FOR 7 DAYS TAKE ONE CAPSULE BY MOUTH FOUR TIMES A DAY FOR 7 DAYS SOLD: 01/07/2020 [facility] 5-325 mg 01/07/2020 12:00:00 AM EDT tablet 12 TAKE ONE TABLET BY MOUTH EVERY 6 HOURS NEEDED MAXIMUM DAILY DOSE = FOUR TABLETS TAKE ONE TABLET BY MOUTH EVERY 6 HOURS NEEDED MAXIMUM DAILY DOSE = FOUR TABLETS SOLD: 01/07/2020 [facility] 10 mg 12/21/2019 12:00:00 AM EDT tablet 30 TAKE ONE TABLET BY MOUTH DAILY TAKE ONE TABLET BY MOUTH DAILY SOLD: 12/21/2019 [facility] 875 mg 12/20/2019 12:00:00 AM EDT tablet 14 TAKE ONE TABLET BY MOUTH EVERY TWELVE HOURS FOR 7 DAYS TAKE ONE TABLET BY MOUTH EVERY TWELVE HOURS FOR 7 DAYS SOLD: 12/21/2019 [facility] Ketoconazole 20 MG/ML Medicated Shampoo KETOCONAZOLE 11/28/19 12:00:00 AM EDT shampoo 120 APPLY TO SCALP EVERY 2-3 DAYS WHEN BATHING, LET SIT FOR 3 MINUTES , THEN RINSE WELL APPLY TO SCALP EVERY 2-3 DAYS WHEN BATHI NG, LET SIT FOR 3 MINUTES , THEN RINSE WELL SOLD: 11/28/2019 [facility] 0.75 % 10/11/2019 12:00:00 AM EST gel 70 1 APPLICATORFUL INTRAVAGINALLY EVERY NIGHT FOR 5 DAYS 1 APPLICATORFUL INTRAVAGINALLY EVERY NIGHT FOR 5 DAYS SOLD: 10/11/2019 [facility] 25 mg 08/31/2019 12:00:00 AM EST tablet 30 TAKE ONE TABLET BY MOUTH EVERY DAY TAKE ONE TABLET BY MOUTH EVERY DAY SOLD: 08/31/2019 [facility] 25 mg 08/31/2019 12:00:00 AM EST tablet 30 TAKE ONE TABLET BY MOUTH EVERY DAY TAKE ONE TABLET BY MOUTH EVERY DAY SOLD: 10/02/2019 [facility] Insurance Providers Payer name Policy type / Coverage type Policy ID Covered green party ID Covered green party's relationship to keane Policy [place] Plan Information [employer]-BS PPO [id number] SP [id number] [place] PPO [phone] [id number] SP [id number] SELF PAY SELF PAY ONLY [id number] SP [id number] [place] 302/307 [id number] SP [id number] [place] 306/806 [id number] SP [id number] EXCELL[place] BCBS B [id number] S VYS [id number] OTHER WORKERS COMPENSATION INSURANCE COVID-19 COVID Hannah C OVID EXCELLUS BCBS [id number] Hannah VYS [id number] Excellus BCBS P [id number] S VYS [id number] EXCELLUS BC-BS PPO [id number] SP [id number] [place] 302/307 [id number] SP [id number] [place] 306/806 [id number] SP [id number] [place] 306/806 [id number] SP [id number] UNHC COMMUNITY PLAN MCDHMO [id number] SP [id number] Managed Care - [facility] Community Plan P [id number] S [id number] Medicaid S [id number] S [id number] Community Plan Commercial [id number] Self [id number] [facility] MANAGEMENT REMY [facility] [id number] SP [id number] Managed Care - Community Plan United Healthcare P [id number] S [id number] Managed Care - Community Plan United Healthcare P [id number] S [id number] United Healthcare Essential Plan P [id number] S [id number] United [employer] [place] Medigap Part B [id number] Self [id number] Health Net Fed Standard Health Maintenance Organization (HMO ) [id number] United Healthcare Essential Plan P [id number] S [id number] United [employer] [place] Medigap Part B [id number] Self [id number] Health Net Fed Standard Health Maintenance Organization (HMO ) [id number] UNHC COMMUNITY PLAN MCDHMO [id number] SP [id number] UNHC COMMUNITY PLAN MCDHMO [id number] SP [id number] [facility](MCAID) O [id number] S [id number] United Healthcare Essential Plan P [id number] S [id number] UNHC COMMUNITY PLAN MCDHMO [id number] SP [id number] Managed Care - United [facility] P [id number] S [id number] United CR/Community Julia Health Maintenance Organization (HMO) [id number] Self [id number] Managed Care - United Health[facility] P [id number] S [id number] United [facility] [place]/[facility] Medigap Part B [id number] Self [id number] Health Net Fed Standard Health Maintenance Organization (HMO ) [id number] UNITED HEALTHCARE(MCAID) O [id number] S [id number] UN COMMUNITY PLAN MCDO [id number] SP [id number] [facility] Medigap Part B [id number] Self [id number] Health Net Fed Standard Health Maintenance Organization (HMO ) [id number] Managed Care - [facility] P [id number] S [id number] [facility] Medigap Part B [id number] Self [id number] Health Net Fed Standard Health Maintenance Organization (HMO ) [id number] [facility] Medigap Part B [id number] Self [id number] Health Net Fed Standard Health Maintenance Organization (HMO ) [id number] [facility] Medigap Part B [id number] Self [id number] Health Net Fed Standard Health Maintenance Organization (HMO ) [id number] [facility] Medigap Part B [id number] Self [id number] Health Net Fed Standard Health Maintenance Organization (HMO ) [id number] UN COMMUNITY PLAN MCDO [id number] SP [id number] [facility] [id number] 2 [id number] MEDICAID [id number] SP [id number] Medicaid [place] Medigap Part B Self Health Net Federal [facility] Commercial [facility] [id number] SP [id number] MEDICAID - CLINIC [id number] [facility] [id number] Problems, Conditions, and Diagnoses Code Display Name Description Problem Type Effective Dates Data Source(s) N94.89 Pelvic congestion syndrome Pelvic congestion syndrome Problem 08/19/2020 12:00:00 AM [facility] ([facility]) H70.001 Acute mastoiditis without complications, right ear Acute mastoiditis without complications, right ear 01/07/2020 12:04:[address] [facility] L70.0 [id number] Acne vulgaris Problem 12/30/2019 12:00:00 AM EDT [facility] ([facility]) L70.0 [id number] Acne vulgaris Problem 12/30/2019 12:00:00 AM EDT [facility] ([facility]) [id number] Seborrhea capitis Seborrhea capitis 11/28/2019 02:12:[address] [facility] 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 STI / H 05/07/2020 12:00:00 AM EDT - 05/07/2020 12:00:00 AM EDT [facility] ([facility]) CVR Sales Exhibitor.Svc. Other 05/07/2020 12:00:00 AM EDT - 2019 12:00:00 AM EDT [facility] ([facility]) CVR Sales Exhibitor.Svc. Contraceptive 05/07/2020 12 :00:00 AM EDT - 05/07/2020 12:00:00 AM EDT [facility] ([facility]) CVR Med.Svc. Vaginitis Rx 05/07/2020 12: 00:00 AM EDT - 05/07/2020 12:00:00 AM EDT [facility] ([facility]) CVR Med.Svc. Extremities 05/07/2020 12:0 0:00 AM EDT - 05/07/2020 12:00:00 AM EDT [facility] ([facility]) CVR Med.Svc. Abdominal Palp. 05/07/2020 12:00:00 AM EDT - 05/07/2020 12:00:00 AM EDT [facility] ([facility]) CVR Med.Svc. Heart/Lung Ausc. 05/07/2020 12:00:00 AM EDT - 05/07/2020 12:00:00 AM EDT [facility] ([facility]) CVR Med.Svc. Thyroid Palp. 05/07/2020 12 :00:00 AM EDT - 05/07/2020 12:00:00 AM EDT [facility] ([facility]) CVR Med.Svc. Height/Weight 05/07/2020 12 :00:00 AM EDT - 05/07/2020 12:00:00 AM EDT [facility] ([facility]) CVR Blood Pressure 05/07/2020 12:00:00 AM EDT - 2019 12:00:00 AM EDT [facility] ([facility]) CVR Med.Svc. Other 05/07/2020 12:00:00 AM EDT - 2019 12:00:00 AM EDT [facility] ([facility]) SMEAR, WET MOUNT, SALINE/INK 05/07/2020 12:00:00 AM EDT - 05/07/2020 12:00:00 AM EDT [facility] ([facility]) ASSAY OF BODY FLUID ACIDITY 05/07/2020 1 2:00:00 AM EDT - 05/07/2020 12:00:00 AM EDT [facility] ([facility]) PREV VISIT, EST, AGE 18-39 05/07/2020 12 :00:00 AM EDT - 05/07/2020 12:00:00 AM EDT [facility] ([facility]) HCS Pre Test Counseling 05/07/2020 12:00 :00 AM EDT - 05/07/2020 12:00:00 AM EDT [facility] ([facility]) HIV-1/HIV-2, SINGLE ASSAY 05/07/2020 12: 00:00 AM EDT - 05/07/2020 12:00:00 AM EDT [facility] ([facility]) Injection, triamcinolone acetonide, not otherwise specified , 10 mg 01/20/2020 12:00:00 AM EDT eCW1 ([facility]) INJECT SKIN LESIONS </W 7 01/20/2020 12:00:00 AM EDT e[facility]1 ([facility]) CVR Sales Exhibitor.Svc. STI / H 01/17/2020 12:00:00 AM EDT - 01/17/2020 12:00:00 AM EDT [facility] ([facility]) CVR Sales Exhibitor.Svc. Other 01/17/2020 12:00:00 AM EDT - 2019 12:00:00 AM EDT [facility] ([facility]) CVR Sales Exhibitor.Svc. Contraceptive 01/17/2020 12 :00:00 AM EDT - 01/17/2020 12:00:00 AM EDT [facility] ([facility]) CVR Med.Svc. Height/Weight 01/17/2020 12 :00:00 AM EDT - 01/17/2020 12:00:00 AM EDT [facility] ([facility]) CVR Blood Pressure 01/17/2020 12:00:00 AM EDT - 2019 12:00:00 AM EDT [facility] ([facility]) CVR Med.Svc. Other 01/17/2020 12:00:00 AM EDT - 2019 12:00:00 AM EDT [facility] ([facility]) SMEAR, WET MOUNT, SALINE/INK 01/17/2020 12:00:00 AM EDT - 01/17/2020 12:00:00 AM EDT [facility] ([facility]) ASSAY OF BODY FLUID ACIDITY 01/17/2020 1 2:00:00 AM EDT - 01/17/2020 12:00:00 AM EDT [facility] ([facility]) OFFICE VISIT, EST 01/17/2020 12:00:00 AM EDT - 020 12:00:00 AM EDT [facility] ([facility]) HCS Pre Test Counseling 01/17/2020 12:00 :00 AM EDT - 01/17/2020 12:00:00 AM EDT [facility] ([facility]) HIV-1/HIV-2, SINGLE ASSAY 01/17/2020 12: 00:00 AM EDT - 01/17/2020 12:00:00 AM EDT [facility] ([facility]) TANGNTL BX SKIN SINGLE LES 12/30/2019 12:00:00 AM EDT eCW1 ([facility]) Results ID Date Data Source [id number] 10/14/2020 12:00:00 AM EST [facility] Name Value Range Interpretation Code Description Data Cassy rce(s) Supporting Document(s) SARS-CoV2 Rapid Antigen Negative [facility] This lab was ordered by [facility] and reported by [facility]. ID Date Data Source [id number] 09/08/2020 10:35:00 AM EST [facility] Name Value Range Interpretation Code Description Data Cassy rce(s) Supporting Document(s) SARS coronavirus 2 RNA [facility] This lab was ordered by [facility] and reported by [facility]. ID Date Data Source [id number] 08/27/2020 12:00:00 AM EST [facility] Name Value Range Interpretation Code Description Data Cassy rce(s) Supporting Document(s) SARS coronavirus 2 Ag [facility] This lab was ordered by [facility] and reported by [facility] ID Date Data Source [id number] 07/21/2020 12:00:00 AM EST [facility] Name Value Range Interpretation Code Description Data Cassy rce(s) Supporting Document(s) 2019-nCoV RNA XXX CHASIDY+probe-Imp [facility] This lab was ordered by [facility] and reported by [email or web address] ID Date Data Source [id number] 06/26/2020 10:00:00 AM EDT [facility] Name Value Range Interpretation Code Description Data Cassy rce(s) Supporting Document(s) SARS coronavirus 2 RNA [facility] This lab was ordered by [facility] and reported by [facility]. ID Date Data Source [id number] 06/08/2020 11:56:[address] [facility] Name Value Range Interpretation Code Description Data Cassy rce(s) Supporting Document(s) BG FASTING 86 mg/dL 70-100 N [facility] ID Date Data Source [id number] 06/08/2020 11:56:[address] [facility] Name Value Range Interpretation Code Description Data Cassy rce(s) Supporting Document(s) HCT 41.1 % 36.0-47.0 N [facility] HGB 14.1 g/dL 12.0-15.[address] [facility] MCH 34.3 G/DL pg 32.0-36.5 N [facility] MCHC 30.6 PG % 27.0-33.[address] [facility] PLATELETS 393 10 10*3/mm3 150-[address] [facility] RBC 4.61 10 10*6/mm3 4.00-5.40 [facility] RDW 12.9 % 11.5-14.5 [facility] WBC TOTAL 10.5 4.0-10.[address] [facility] ID Date Data Source [id number] 05/07/2020 01:59:28 PM EDT [facility] ([facility]) Name Value Range Interpretation Code Description Data Cassy rce(s) Supporting Document(s) Hyphae/Erlinda: no; Budding yeast: no; Trich: no; Clue cells: yes (>=20%); WBCs: no; Amine/Whiff test: negative; pH: 4.5 Abnormal (applies to non-numeric results) Wet Prep [facility] ([facility]) ID Date Data Source [id number] 05/07/2020 01:59:08 PM EDT [facility] ([facility]) Name Value Range Interpretation Code Description Data Cassy rce(s) Supporting Document(s) pH: 4.5. Vaginal pH [facility] ([facility]) ID Date Data Source [id number] 05/07/2020 01:31:45 PM EDT [facility] ([facility]) Name Value Range Interpretation Code Description Data Cassy rce(s) Supporting Document(s) Non-Reactive (Negative); Lot : [id number]; Exp: 08/13/2020; Start time: 1:29 PM; Completed time: 1:31 PM Rapid HIV [facility] ([facility] ID Date Data Source [id number] 03/26/2020 12:09:00 PM EDT [facility] ([facility], ) Name Value Range Interpretation Code Description Data Cassy rce(s) Supporting Document(s) Surgical pathology study Laboratory test result [facility] ([facility], ) FINAL DIAGNOSIS A--Tonsil, right, tonsillectomy: Squamous epithelium-lined hyperplastic lymphoid tissue, consistent with tonsil Actinomyces species noted. Negative for malignancy. B--Tonsil, left, tonsillectomy: Squamous epithelium-lined hyperplastic lymphoid tissue, consistent with tonsil. Actinomyces species noted. Negative for malignancy. 03/27/2020 - 1143 CLINICAL DIAGNOSIS Chronic tonsillitis 03/26/2020 - 1604 GROSS DIAGNOSIS A - Received in formalin labeled "right tonsil" consists of a tonsil, 2.5 x 1.4 x 1.0 cm. Specimen is unremar kable. [employer] sections are submitted in one. B - Received in formalin labeled "left tonsil" consists of a tonsil, 3 x 1.3 x 1.0 cm. The specimen is grossly u nremarkable. [employer] sections are submitted in one. -OA 03/26/2020 - 1604 Signed MAXI PANTOJA MD 03/27/2020 1143 ID Date Data Source [id number] 03/21/2020 10:30:00 AM EDT [facility] Name Value Range Interpretation Code Description Data Cassy rce(s) Supporting Document(s) SARS coronavirus 2 RNA [facility] This lab was ordered by [facility] and reported by [facility]. ID Date Data Source [id number] 01/31/2020 08:07:[address] [facility] Measurements & CalculationsWeight: 267 pounds 121.36 kg Vital SignsPulse Rate: 66 beats/minuteBlood Pressure: 128/86 Vital Signs performed by: Leo Schwartz MA, January 31, 2020 8:08 AM Name Value Range Interpretation Code Description Data Cassy rce(s) Supporting Document(s) ID Date Data Source [id number] 01/17/2020 09:34:48 AM EDT [facility] ([facility]) Name Value Range Interpretation Code Description Data Cassy rce(s) Supporting Document(s) NegativeHyphae/Erlinda: noB udding yeast: noTrich: noClue cells: noWBCs: noAmine/Whiff test: negativepH: 4.5 Wet Mount [facility] ([facility]) ID Date Data Source [id number] 01/17/2020 09:34:30 AM EDT [facility] ([facility]) Name Value Range Interpretation Code Description Data Cassy rce(s) Supporting Document(s) pH: 4.5. Vaginal pH [facility] ([facility]) ID Date Data Source [id number] 01/17/2020 08:58:56 AM EDT [facility] ([facility]) Name Value Range Interpretation Code Description Data Cassy rce(s) Supporting Document(s) Non-Reactive (Negative)Lot: [id number]: 05/14/2020Test date: 01/17/2020Start time: 8:55 AMCompleted time: 8:58 AM Rapid HIV [facility] ([facility]) ID Date Data Source [id number] 01/07/2020 11:33:05 AM EDT [facility] Measurements & CalculationsHeight: 66 inches 167.64 cm Weight: 268.8 pounds 122.18 kg Body Mass Index (BMI): 43.54BMI Interpretation: Morbidly ObeseBody Surface Area (BSA): 2.27Weight Management Education Done (Nutrition/Physical Activity)Vital SignsTemperature: 98.7F 37.06C tympanic Pulse Rate: 72 beats/minuteRespiratory Rate: 16 respirations/minuteBlood Pressure: 130/82 left arm sitting automaticO2 Saturation: 99% room airVital Signs performed by: Lilliana Recions , January 07, 2020 11:43 AMVital Signs performed by: Eduar ORTIZ, January 07, 2020 11:52 AMInitial Intake Information From: patientRoom #: 1Infectious Disease / Travel ScreeningRecent travel for you or any close contacts? NoHave you had any close contact with anyone diagnosed with or under investigation for COVID-19 (coronavirus)? NoFever? NoRespiratory symptoms: cough, cold, congestion, shortness of breath, difficulty breathing? NoLoss of smell? NoLoss of taste? NoSmoking, Tobacco, Vaping or Smoke Exposure StatusSmoke Status: former smokerTobacco Use: NoDo you vape? NoPassive Smoke Exposure: NoMenstrual H istoryLast Menstrual Period (LMP): 12/29/2019LMP History: DefiniteAny possibility of ? NoHealthcare HistorySince your last office visit...Have you been admitted to the hospital? NoHave you been to an emergency room (ER) or urgent care clinic? NoHave you seen another healthcare provider? Yes - DERMATOLOGYHave you seen a dentist? Yes [facility] exam date reported today: 07/2018Intake performed by: Lilliana Recinos , January 07, 2020 11:39 AMRate Your HealthIn general, would you say your health is? FairPain AssessmentAre you currently having any pain which... You would like your provider to address? Yes Affects your activity level? YesDepression Screening - PHQ-2Over the last two weeks, have you... Had little interest or pleasure in doing things? Not at all Been feeling down, depressed, or hopeless? Not at all PHQ-2 Score: 0Anxiety Screening - BENJAMIN-2Over the last two weeks, have you been... Feeling nervous, anxious, or on edge? Not at all Unable to stop or control worrying? Not at all BENJAMIN-2 Score: 0Food InsecurityWithin the past year...Did you worry whether your food would run out before you got money to buy more? NoWas there a time when the food you bought didn't last and you didn't have money to get more? NoNurses Note HURTS ALL THE WAY DOWN RIGHT SIDE OF NECK AND HURTS TO LOOK TO THE LEFT AND RIGHTBIOPSY DONE LAST WEEKPain AssessmentPain ScaleNumeric Rating Scale: Location: neckOnset: 01/06/2020Character/Quality: aching, dull and stabbingIs the pain radiating? YesTo what body part(s) is the pain radiating? BEHIND EAR DOWN TO SHOULDERScreening, Brief Intervention, & Referral to Treatment (SBIRT)Pre-Screening Questions How many times have you have 4 or more drinks in a day? 0How many times have you used an illegal drug or used a prescription medication for a non-medical reason? 0Performed by: Lilliana Recinos , January 07, 2020 11:42 AMPatient History Medical History:HPVSurgical History:cyst removal x2 (back, perineum)Family History:Hypertension (Father)Hypertension (Mother)Hypertension (Brother)Alzheimer's (Maternal Grandfather)Cancer - Breast (Maternal Grandmother)Cancer - Colorectal (Maternal Grandmother)Cancer - Lung (Paternal Grandfather)Social/Personal History: Chief ComplaintLUMPS BEHIND RIGHT EAR X 1 DAY-HEADACHE ALL DAY YESTERDAY ON RIGHT SIDEHistory of Present Illness (HPI)Pt is a 29 y/o female with painful lump behind right ear.Pt states this began yesterday, it is severely painful to touch. Is causing her a headache. Denies ear pain, ringing, ear drainage. Pt states she had a scalp biopsy about 1 week ago, by [facility] dermatology. Pt is waiting for biopsy results, but states they don't think it is alopecia. They are thinking her hair loss is lupus. Transitions of Care InboundProblem ReviewProblem List was reviewed and/or updated during this visit.Medication Reconciliation & ReviewMedication List was reviewed and/or updated during this visit, including review of any ikgd-azp-pygotbm medications, herbal therapies, and/or supplements.Allergy ReviewAllergy List was reviewed and/or updated during this visit.Adult Preventive CareLabs/Meds/Other Counseling-Nutrition and Physical Activity:BMI Interpretation: Morbidly Obese (01/07/2020) Counseling: Done (01/07/2020) Physical Activity: Done (01/07/2020)Review of Systems General: Complains of headache, feeling ill. Denies dizziness, fever. Eyes: Denies blurring of vision, double vision, eye pain. Ears/Nose/Throat: Complains of see HPI, swollen glands. Denies earache, ringing in ears, decreased hearing, nasal congestion, sore throat, tooth pain. Cardiovascular: Denies chest pain, palpitations, feeling faint. Respiratory: Denies cough, difficulty breathing, shortness of breath. Gastrointestinal: Denies nausea, vomiting, diarrhea. Skin: Complains of see HPI. Denies rash, redness, itching. Neurologic: Denies weakness, feeling faint. Physical ExamGeneral Appearance: well nourished, well hydrated, no acute distressEyes, External: conjunctivae and lids normal, EOMIExternal Ears: prominant swelling of right mastoid region without erythema, no fluctuance but severely painful to light touch, no skin lesions in that areaHearing: grossly intactExternal Nose: normal, no lesions or deformitiesNasal: mucosa, septum, and turbinates normal, nares patentLips/Teeth/Gums: no labial, tongue or mucosal lesions, no white patches, no swelling, no caries, no gingival hypertrophy, no bleeding gumsPharynx: tongue normal, posterior pharynx without erythema or exudate, no thrush/aphthous ulcerRespiratory, Auscultation: clear to auscultation bilaterally; no rales, rhonchi, or wheezesCardiovascular, Auscultation: S1, S2 audible; no murmur, rub, or gallop; RRRAbdomen: soft, non-tender, no masses, bowel sounds normalGait & Station: normalSkin, Inspection: no lesions or ulcerations; approximately 4cm round area of hair loss on right parietal region of scalp, there is some fine short hair growth and diffuse scalp scaling that is focused to apex of scalpOrientation: oriented to time, place, and personJudgment & Insight: intactCare Management Plan Transitions of CareInboundRate Your HealthIn general, would you say your health is? FairAssessment & Plan Problems:Added: Acute mastoiditis without complications, right ear ([id number]-V37.001) Assessment: Instructions: Start antibotics as prescribed. Take antibiotics as prescribed, finish full course even if symptoms resolve. Antibiotics may cause stomach upset, recommend eating yogurt or taking probiotic while on antibiotics. Pain medication as needed for severe pain. The medication you were prescribed today is a controlled substance. We have reviewed alternative treatment options and agree this is the most appropriate treatment at this time. We reviewed risks of taking this medication, including but not limited to: addiction, sedation, overdose. Taking more than prescribed or taking with another controlled substance can result in overdose or , no drinking alcohol, no driving/operating heavy machinery while taking this medication. Keep out of the reach of [employer] Technologies[employer] for worsening symptoms.Patient Instructions/Care Plan: Acute mastoiditis without complications- right ear: Start antibotics as prescribed. Take antibiotics as prescribed, finish full course even if symptoms resolve. Antibiotics may cause stomach upset, recommend eating yogurt or taking probiotic while on antibiotics. Pain medication as needed for severe pain. The medication you were prescribed today is a controlled substance. We have reviewed alternative treatment options and agree this is the most appropriate treatment at this time. We reviewed risks of taking this medication, including but not limited to: addiction, sedation, overdose. Taking more than prescribed or taking with another controlled substance can result in overdose or , no drinking alcohol, no driving/operating heavy machinery while taking this medication. Keep out of the reach of [employer] for worsening symptoms. Plan developed in collaboration with patient and/or familyMedications:KEFLEX 500 MG ORAL CAPSULEOTC B-12OTC VITAMIN DBIOTIN 300 MCG ORAL TABLETKETOCONAZOLE 2 % EXTERNAL SHAMPOOCHLORTHALIDONE 25 MG ORAL TABLETMedication Changes:Added: * OTC VITAMIN D-2 DAY* OTC B-12-1 PER DAYNew Prescription:KEFLEX 500 MG ORAL CAPSULE-Take 1 tablet po QID x 7 days Qty: 28[Capsule] Refills: 0 Method: ElectronicPERCOCET 5-325 MG ORAL TABLET-Take 1 tablet po q 6 hrs prn; MDD 4 tablets Qty: 12[Tablet] Refills: 0 Method: ElectronicAllergies:* POLLEN (Critical)* LATEX (Critical)Orders:Adult - Ofc Vst, EST, Level II [CPT-74655] Follow-Up Return to clinic: as needed Clinical Visit Summary CompletedMedications:PERCOCET 5-325 MG ORAL TABLET (OXYCODONE- ACETAMINOPHEN) Take 1 tablet po q 6 hrs prn; MDD 4 tablets #12[Tablet] x 0 Route:ORAL Entered and Authorized by: Eduar ORTIZ Method used: Electronically to [facility] ([facility] [address] [place] [address] Fax: Note to Pharmacy: Route: ORAL; RxID: [id number] 500 MG ORAL CAPSULE (CEPHALEXIN) Take 1 tablet po QID x 7 days #28[Capsule] x 0 Route:ORAL Entered and Authorized by: Eduar ORTIZ Method used: Electronically to [facility] ([facility]) [address] [place] [address] Fax: Note to Pharmacy: Route: ORAL; Indications: ACUTE MASTOIDITIS WITHOUT COMPLICATIONS, RIGHT EAR RxID: [id number] signed by Eduar ORTIZ on 01/14/2020 at 1:37 PM Name Value Range Interpretation Code Description Data Cassy rce(s) Supporting Document(s) ID Date Data Source [id number] 12/30/2019 11:01:[address] [facility] Initial Intake Information from: [facility] for [facility] WinstonMeasurements & CalculationsHeight: 66 inches (5 ft. 6 in.) 167.64 cm Weight: 270 pounds 4 oz. 122.84 kg Body Mass Index (BMI): 43.78BMI Interpretation: Morbidly ObeseBody Surface Area (BSA): 2.28Weight Management Education Done (Nutrition/Physical Activity)Vital SignsPulse Rate: 75 beats/minuteRespiratory Rate: 14 respirations/minuteBlood Pressure: 143/86 Vital Signs performed by: Heather Monreal, December 30, 2019 11:10 AMVital Signs performed by: Heather Monreal, December 30, 2019 11:10 AM Name Value Range Interpretation Code Description Data Cassy rce(s) Supporting Document(s) ID Date Data Source [id number] 12/13/2019 12:00:00 AM EDT [facility] Name Value Range Interpretation Code Description Data Cassy rce(s) Supporting Document(s) 2019-nCoV N XXX Ql CHASIDY N2 [facility] [place] This lab was ordered by [facility] and reported by [facility]. ID Date Data Source [id number] 11/28/2019 01:31:[address] [facility] Measurements & CalculationsHeight: 66 inches (5 ft. 6 in.) 167.64 cm Weight: 267 pounds 121.36 kg Body Mass Index (BMI): 43.25BMI Interpretation: Morbidly ObeseBody Surface Area (BSA): 2.26Weight Management Education Done (Nutrition/Physical Activity)Vital SignsTemperature: 98.1F tympanic Pulse Rate: 90 beats/minuteRespiratory Rate: 18 respirations/minuteBlood Pressure: 131/82 left arm sitting automaticO2 Saturation: 99% room airVital Signs performed by: Ursula Bustamante LPN, November 28, 2019 1:44 PMInitial Intake Information from: patientRoom #: 1Smoking, Tobacco, Vaping or Smoke Exposure StatusSmoke Status: never smokerTobacco Use: NoDo you vape? NoPassive Smoke Exposure: NoMenstrual HistoryLast Menstrual Period (LMP): 11/05/2019Any possibility of ? NoHealthcare HistorySince your last office visit...Have you been admitted to the hospital? NoHave you been to an emergency room (ER) or urgent care clinic? Yes - [facility] ConcussionEmergency room (ER) or urgent care date reported today: 11/16/2019Have you seen another healthcare provider? Yes - ortho, Dr Winston, Have you seen a dentist? Yes - [facility]DRate Your HealthIn general, would you say your health is? FairPain AssessmentAre you currently having any pain which... You would like your provider to address? No Affects your activity level? NoDepression Screening - PHQ-2Over the last two weeks, have you... Had little interest or pleasure in doing things? Not at all Been feeling down, depressed, or hopeless? Not at all PHQ-2 Score: 0Anxiety Screening - BENJAMIN-2Over the last two weeks, have you been... Feeling nervous, anxious, or on edge? Not at all Unable to stop or control worrying? Not at all BENJAMIN-2 Score: 0Infectious Disease / Travel ScreeningRecent travel for you, your family, and/or any sexual partners? NoScreening, Brief Intervention, & Referral to Treatment (SBIRT)Pre-Screening Questions How many times have you have 4 or more drinks in a day? 0How many times have you used an illegal drug or used a prescription medication for a non- medical reason? 0Performed by: Ursula Bustamante LPN, November 28, 2019 1:41 PMPatient History Medical History:HPVSurgical History:cyst removal x2 (back, perineum)Family History:Hypertension (Father)Hypertension (Mother)Hypertension (Brother)Alzheimer's (Maternal Grandfather)Cancer - Breast (Maternal Grandmother)Cancer - Colorectal (Maternal Grandmother)Cancer - Lung (Paternal Grandfather)Social/Personal History: Chief Complaintreferral to dermHistory of Present Illness (HPI)29 yo female here for referral to derm for patch of hair lossed on top of head. Pt reports her noticed the spot 3 days ago. Reports chronic dandruff and itchy scalp. Has tried Selsun Blue, Head and Shoulder, T-gel, Nioxin shampoos all with poor response. Pt is already taking a biotin supplement consistent and has had thyroid labs recently which were reportedly normal. Transitions of Care InboundProblem ReviewProblem List was reviewed and/or updated during this visit.Medication Reconciliation & ReviewMedication List was reviewed and/or updated during this visit, including review of any zwac-mwl-qzcvunh medications, herbal therapies, and/or supplements.Allergy ReviewAllergy List was reviewed and/or updated during this visit.Adult Preventive CareProvider Calculated and Reviewed all Clinical Protocols for patient today. Labs/Meds/Other Counseling-Nutrition and Physical Activity:BMI Interpretation: Morbidly Obese (11/28/2019) Counseling: Done (11/28/2019) Physical Activity: Done (11/28/2019)Cancer Screening Pap Smear/HPV TestingReviewed: Previous Comments: Will schedule with Dr. Craft (11/06/2019)Today's Comments: Dr Craft will sheduleReview of Systems General: Denies fatigue, fever, feeling ill. Skin: Complains of see HPI, itching, dryness. Denies rash, redness. admits to chronic diffuse hair thinning since the of her daughter, never alopeciaPhysical ExamGeneral Appearance: well nourished, well hydrated, no acute distressGait & Station: normalSkin, Inspection: no lesions or ulcerations; approximately 4cm round area of hair loss on right parietal region of scalp, there is some fine short hair growth and diffuse scalp scaling that is focused to apex of scalpOrientation: oriented to time, place, and personMood & Affect: no depression, anxiety, or a gitationJudgment & Insight: intactCare Management Plan Transitions of CareInboundRate Your HealthIn general, would you say your health is? 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 Start Ketoconazole shampoo, instructed on how to use. Alternate days with normal shampoo. Avoid scratching as part of the alopecia may be mechanical shearing. Differential includes fungal versus atopic origin of scaling and itching.Seborrhea capitis (VFY05-E11.0) Assessment: Instructions: As above.Assessment not Saved Circumscribed alopecia areata of scalp (KLT57-V53.8): Comment OnlyInstructions: Referral to dermatology. Start Ketoconazole shampoo, instructed on how to use. Alternate days with normal shampoo. Avoid scratching as part of the alopecia may be mechanical shearing. Differential includes fungal versus atopic origin of scaling and itching.Complete your labs as ordered by Dr. Winston's office to ensure appropriate thyroid function. Patient Instructions/Care Plan: Circumscribed alopecia areata of scalp: Referral to dermatology. Start Ketoconazole shampoo, instructed on how to use. Alternate days with normal shampoo. Avoid scratching as part of the alopecia may be mechanical shearing. Differential includes fungal versus atopic origin of scaling and itching.Seborrhea capitis: As above. Plan developed in collaboration with patient and/or familyMedications:BIOTIN 300 MCG ORAL TABLETKETOCONAZOLE 2 % EXTERNAL SHAMPOOCHLORTHALIDONE 25 MG ORAL TABLETMedication Changes:Added: BIOTIN 300 MCG ORAL TABLET-1 tab po dailyNew Prescription:KETOCONAZOLE 2 % EXTERNAL SHAMPOO- Apply to scalp every 2-3 days when bathing, let sit for 3 mins, then rinse well Qty: 4[Ounce] Refills: 5 Method: ElectronicAllergies:* POLLEN (Critical)* LATEX (Critical)Orders:Dermatology Consult [CPT-46315] Adult - Ofc Vst, EST, Level II [CPT-24589] Follow-Up Return to clinic: as needed Med ications:KETOCONAZOLE 2 % EXTERNAL SHAMPOO (KETOCONAZOLE) Apply to scalp every 2-3 days when bathing, let sit for 3 mins, then rinse well #4[Ounce] x 5 Route:EXTERNAL Entered and Authorized by: Eduar ORTIZ Method used: Electronically to [facility] (retail) [address] [place] [address] Fax: Note to Pharmacy: Route: EXTERNAL; Indications: CIRCUMSCRIBED ALOPECIA AREATA OF SCALP;SEBORRHEA CAPITIS RxID: [id number]] Name Value Range Interpretation Code Description Data Cassy rce(s) Supporting Document(s) ID Date Data Source [id number] 11/21/2019 08:41:[address] [facility] Measurements & CalculationsWeight: 269 pounds 4 oz. 122.39 kg Vital SignsPulse Rate: 73 beats/minuteBlood Pressure: 118/72 Vital Signs performed by: Leo Schwartz MA, November 21, 2019 8:58 AMAssessment & Plan Orders:[id number] Vst-Est Level I [CPT-15610] Labs In-House Blood TestsDate/Time Collected: November 21, 2019 8:42 AMTest Result Reference Range Normal ValueComments: blood draw done in office done in the right ac tolerated well Leo Schwartz MA, November 21, 2019 8:42 AM _ Name Value Range Interpretation Code Description Data Cassy rce(s) Supporting Document(s) ID Date Data Source [id number] 11/06/2019 08:26:24 AM [facility] Measurements & CalculationsHeight: 66 inches (5 ft. 6 in.) 167.64 cm Weight: 268 pounds 121.82 kg Body Mass Index (BMI): 43.41BMI Interpretation: Morbidly ObeseBody Surface Area (BSA): 2.27Weight Management Education Done (Nutrition/Physical Activity)Vital SignsTemperature: 99.0F oral Pulse Rate: 82 beats/minuteRespiratory Rate: 18 respirations/minuteBlood Pressure: 131/88 right arm sitting automaticO2 Saturation: 99% room airVital Signs performed by: Ursula Bustamante LPN, November 06, 2019 8:35 AMVital Signs performed by: Eduar ORTIZ, November 06, 2019 8:36 AMInitial Intake Information from: patientRoom #: 8Smoking, Tobacco, Vaping or Smoke Exposure StatusSmoke Status: never smokerTobacco Use: NoDo you vape? NoPassive Smoke Exposure: NoMenstrual HistoryLast Menstrual Period (LMP): 11/05/2019Any possibility of ? NoHealthcare HistorySince your last office visit...H ave you been admitted to the hospital? NoHave you been to an emergency room (ER) or urgent care clinic? NoHave you seen another healthcare provider? Yes - Dr. Venancio lainez Dr.Have you seen a dentist? Yes - [facility]DRate Your HealthIn general, would you say your health is? FairPain AssessmentAre you currently having any pain which... You would like your provider to address? Yes Affects your activity level? NoDepression Screening - PHQ-2Over the last two weeks, have you... Had little interest or pleasure in doing things? Not at all Been feeling down, depressed, or hopeless? Not at all PHQ-2 Score: 0Anxiety Screening - BENJAMIN-2Over the last two weeks, have you been... Feeling nervous, anxious, or on edge? Not at all Unable to stop or control worrying? Not at all BENJAMIN-2 Score: 0Infectious Disease / Travel ScreeningRecent travel for you, your family, and/or any sexual partners? NoPain AssessmentPain ScaleNumeric Rating Scale: 5 / 10Location: headDuration: 3 daysCharacter/Quality: aching and sharpIs the pain radiating? NoScreening, Brief Intervention, & Referral to Treatment (SBIRT)Pre-Screening Questions How many times have you have 4 or more drinks in a day? 0How many times have you used an illegal drug or used a prescription medication for a non-medical reason? 0Performed by: Ursula Bustamante LPN, November 06, 2019 8:30 AMPatient History Medical History:HPVSurgical History:cyst removal x2 (back, perineum)Family History:Hypertension (Father)Hypertension (Mother)Hypertension (Brother)Alzheimer's (Maternal Grandfather)Cancer - Breast (Maternal Grandmother)Cancer - Colorectal (Maternal Grandmother)Cancer - Lung (Paternal Grandfather)Social/Personal History: Chief ComplaintHTN History of Present Illness (HPI)29 yo female here for fu for HTN. Pt states she has no other concerns at this time.Pt reports she was seen by Dr. Winston's office 10/23/19 for consultation, was 117/82 for BP there. Has requisitioni for labs from Dr. Winston. Will be scheduling annual WWE/pap with Dr. Walker's office. Last pap was > 2 years ago. HPI performed by: Eduar ORTIZ, November 06, 2019 8:37 AMTransitions of Care InboundProblem ReviewProblem List was reviewed and/or updated during this visit.Medication Reconciliation & amp; ReviewMedication List was reviewed and/or updated during this visit, including review of any ruhy-rwz-vhqxcjs medications, herbal therapies, and/or supplements.Allergy ReviewAllergy List was reviewed and/or updated during this visit.Adult Preventive CareProvider Calculated and Reviewed all Clinical Protocols for patient today. Labs/Meds/Other Counseling-Nutrition and Physical Activity:BMI Interpretation: Morbidly Obese (11/06/2019) Counseling: Done (11/06/2019) Physical Activity: Done (11/06/2019)Review of Systems General: Denies dizziness, fatigue, fever, headache, feeling ill. Cardiovascular: Denies chest pain, palpitations, feeling faint, peripheral edema, elevated blood pressure. Gastrointestinal: Denies nausea, vomiting, diarrhea, pain or discomfort. Endocrine: Complains of see HPI, weight gain. Physical ExamGeneral Appearance: well hydrated, no acute distress, obese femaleNeck: supple, no masses, trachea midline, full range of motion of neckThyroid: no nodules, masses, tenderness, or enlargementRespiratory, Auscultation: clear to auscultation bilaterally; no rales, rhonchi, or wheezesPeripheral Circulation: no clubbing, cyanosis, edema, or varicositiesAbdomen: soft, non-tender, no masses, bowel sounds normalGait & Station: normalMood & Affect: no depression, anxiety, or agitationJudgment & Insight: intactCare Management Plan Transitions of CareInboundRate Your HealthIn general, would you say your health is? FairAssessment & Plan Problems:Added: MORBID OBESITY (ICD-278.01) (GDX12-P13.01) Assessment: Instructions: Recommend healthy lifestyle modification. Encourage portion control, healthy food choices, and increasing routine physical activity. Recommendation is for 150 minutes throughout the week of cardiovascular exercise.BMI 40.0-44.9 (ICD-V85.41) (NOH13-D14.41) Assessment: Instructions: Continue per Dr. Winston.Assessed:Essential (primary) hypertension (YIV28-Q39) Assessment: Instructions: Continue current medication. Complete labs as ordered by Dr. Winston and copy this office for monitoring of kidney function. Call if you need refills.Patient Instructions/Care Plan: Essential (primary) hypertension: Continue current medication. Complete labs as ordered by Dr. Winston and copy this office for monitoring of kidney function. Call if you need refills.MORBID OBESITY: Recommend healthy lifestyle modification. Encourage portion control, healthy food choices, and increasing routine physical activity. Recommendation is for 150 minutes throughout the week of cardiovascular exercise.BMI 40.0-44.9: Continue per Dr. Winston. Plan developed in collaboration with patient and/or familyMedications:CHLORTHALIDONE 25 MG ORAL TABLETMedication Changes:Removed:ZYRTEC ALLERGY 10 MG ORAL TABLET-take 1 tab po qd, FLONASE 50 MCG/ACT NASAL SUSPENSION-1 spray each nostril qdAllergies:* POLLEN (Critical)* LATEX (Critical)Orders:Adult - Ofc Vst, EST, Level II [CPT-02253] Follow-Up Return to clinic: in 90 days for preventive care visitAdditional Follow-Up: annual PE, HTNClinical Visit Summary Declined][Immunization Management] Name Value Range Interpretation Code Description Data Cassy rce(s) Supporting Document(s) Procedure Social History Code Duration Value Status Description Data Source(s ) Smoking 08/27/2020 12:00:00 AM EST Patient has never smoked co mpleted Patient has never smoked MEDENT ([facility]) Smoking 07/16/2020 12:00:00 AM EST Never Smoker completed Never S moker eCW1 ([facility]) Smoking 07/16/2020 12:00:00 AM EST Never Smoker completed Never S moker eCW1 ([facility]) Smoking 07/16/2020 12:00:00 AM EST Never Smoker completed Never S moker eCW1 ([facility]) Smoking 07/16/2020 12:00:00 AM EST Never Smoker completed Never S moker eCW1 ([facility]) Smoking 07/16/2020 12:00:00 AM EST Never Smoker completed Never S moker eCW1 ([facility]) Smoking 07/16/2020 12:00:00 AM EST Never Smoker completed Never S moker eCW1 ([facility]) Smoking 05/07/2020 12:00:00 AM EDT Never smoker completed Never s moker NextGen ([facility]) Vital Signs ID Date Data Source UNK Name Value Range Interpretation Code Description Data Source(s) Body temperature 98.6 [degF] 98.6 [degF] MEDENT ([facility]) Oxygen saturation in Arterial blood by Pulse oximetry 98 % 98 % MEDENT ([facility]) Respiratory rate 14 /min 14 /min MEDENT ( [facility]) Heart rate 82 /min 82 /min MEDENT ([facility]) Diastolic blood pressure 90 mm[Hg] 90 mm[Hg] MEDENT ([facility]) Systolic blood pressure 137 mm[Hg] 137 mm[Hg] M EDENT ([facility], [facility]) Body mass index (BMI) [Ratio] 40.8 kg/m2 40.8 k g/m2 MEDENT ([facility], [facility]) Body height 66 [in_i] 66 [in_i] MEDENT ([facility], [facility]) 5'6" Body weight 253.00 [lb_av] 253.00 [lb_av] MEDEN T ([facility], [facility]) Diastolic blood pressure 78 mm[Hg] 78 mm[Hg] eCW1 ([facility]) Systolic blood pressure 132 mm[Hg] 132 mm[Hg] e CW1 ([facility]) Body mass index (BMI) [Ratio] 42.92 kg/m2 42.92 kg/m2 eCW1 ([facility]) Body height 66.5 [in_i] 66.5 [in_i] eCW1 ([facility]) Body weight 270 [lb_av] 270 [lb_av] eCW1 ([facility], [facility]) Diastolic blood pressure 76 mm[Hg] 76 mm[Hg] eCW1 ([facility]) Systolic blood pressure 122 mm[Hg] 122 mm[Hg] e CW1 ([facility]) Body mass index (BMI) [Ratio] 43.08 kg/m2 43.08 kg/m2 eCW1 ([facility]) Body height 66.5 [in_i] 66.5 [in_i] eCW1 ([facility], [facility]) Body weight 271 [lb_av] 271 [lb_av] eCW1 ([facility], [facility]) Diastolic blood pressure 86 mm[Hg] 86 mm[Hg] eCW1 ([facility]) Systolic blood pressure 136 mm[Hg] 136 mm[Hg] e CW1 ([facility]) Body mass index (BMI) [Ratio] 42.76 kg/m2 42.76 kg/m2 eCW1 ([facility]) Body height 66.5 [in_i] 66.5 [in_i] eCW1 ([facility], [facility]) Body weight 269 [lb_av] 269 [lb_av] eCW1 ([facility], [facility]) Body mass index (BMI) [Ratio] 43.45 kg/m2 Overweight 43.45 kg/m2 NextGen ([facility]) Diastolic blood pressure 80 mm[Hg] 80 mm[Hg] NextGen ([facility]) Systolic blood pressure 122 mm[Hg] 122 mm[Hg] N extGen ([facility]) Body weight 122.107 kg 122.107 kg [facility] ([facility]) Body height 167.64 cm 167.64 cm [facility] ([facility]) Body weight 115.214 kg 115.214 kg [facility] ([facility], ) Body mass index (BMI) [Ratio] 41.0 kg/m2 41.0 k g/m2 MEDENT ([facility], ) Body weight 254.00 [lb_av] 254.00 [lb_av] MEDEN T ([facility], ) Body height 66 [in_i] 66 [in_i] [facility] ([facility], ) 5'6" Diastolic blood pressure 86 mm[Hg] 86 mm[Hg] eCW1 ([facility]) Systolic blood pressure 124 mm[Hg] 124 mm[Hg] e CW1 ([facility]) Body mass index (BMI) [Ratio] 43.21 kg/m2 43.21 kg/m2 eCW1 ([facility]) Body height 66.5 [in_us] 66.5 [in_us] W1 ([facility]) Body weight Measured 271.8 [lb_av] 271.8 [lb_av ] W1 ([facility]) Body mass index (BMI) [Ratio] 43.58 kg/m2 Overweight 43.58 kg/m2 [facility] ([facility]) Diastolic blood pressure 82 mm[Hg] 82 mm[Hg] [facility] ([facility]) Systolic blood pressure 132 mm[Hg] 132 mm[Hg] N extGen ([facility]) Body weight 122.470 kg 122.470 kg [facility] ([facility]) Body height 167.64 cm 167.64 cm [facility] ([facility]) Diastolic blood pressure 74 mm[Hg] 74 mm[Hg] eCW1 ([facility]) Systolic blood pressure 128 mm[Hg] 128 mm[Hg] e CW1 ([facility]) Body mass index (BMI) [Ratio] 42.84 kg/m2 42.84 kg/m2 [facility] ([facility]) Body height 66.5 [in_us] 66.5 [in_us] [facility] ([facility]) Body weight Measured 269.5 [lb_av] 269.5 [lb_av ] [facility] ([facility]) Body weight 115.214 kg 115.214 kg [facility] ([facility], ) Body mass index (BMI) [Ratio] 41.0 kg/m2 41.0 k g/m2 [facility] ([facility]) Body weight 254.00 [lb_av] 254.00 [lb_av] MEDEN T ([facility]) Body height 66 [in_i] 66 [in_i] [facility] ([facility]) 5'6" Diastolic blood pressure 78 mm[Hg] 78 mm[Hg] eCW1 ([facility]) Systolic blood pressure 138 mm[Hg] 138 mm[Hg] e CW1 ([facility]) Body mass index (BMI) [Ratio] 43.18 kg/m2 43.18 kg/m2 W1 ([facility] [facility]) Body height 66.5 [in_us] 66.5 [in_us] [facility] ([facility]) Body weight Measured 271.6 [lb_av] 271.6 [lb_av ] [facility] ([facility]) Patient Treatment Plan of Care Planned Activity Planned Date Details Description Data Source (s) Betamethasone 0.5 MG/ML / Clotrimazole 10 MG/ML Topica l Cream 01/14/2020 12:00:00 AM EDT eCW1 ([facility])
--- OUTSIDE RECORDS SUMMARY | 2020-10-24 20:55 | CCD ---
Author Author [facility] Organization [facility] Address Unknown Phone Unavailable Care Team Providers Care Revenue Liaison Name Role Phone Kristi Walker Unavailable PROBLEMS Type Condition ICD9-CM Code MUY90-TM Code Onset Dates Condition S tatus SNOMED Code Notes Problem Acne vulgaris L70.0 Active 29671692 Problem Pelvic congestion syndrome N94.89 Active 62917 007 ALLERGIES Allergen (clinical drug ingredient) Drug/Non Drug Allergy do cumented on EMR Reaction Allergy Type Onset Date Status seasonal Unknown Non Drug Allergy 06/25/2020 Active ENCOUNTERS from 1988 to 2020-08-21 Encounter Location Date Provider Diagnosis [facility] [address] [place] [address] Jul, Kristi Walker Pelvic congestion sy ndrome N94.89 and Aftercare following surgery of the genitourinary system Z48.816 IMMUNIZATIONS No Information SOCIAL HISTORY Tobacco Use: [...] FOR REFERRAL No Information VITAL SIGNS Weight 270 lbs Jul, Height 66.5 in Jul, BMI 42.92 kg/m2 Jul, Blood pressure systolic 132 mm Hg Jul, Blood pressure diastolic 78 mm Hg Jul, MEDICATIONS Medication SIG (Take, Route, Frequency, Duration) Notes Start Da te End Date Status Zyrtec Allergy 10 MG 1 tablet Orally Once a day Active Clotrimazole-Betamethasone 1-0.05 % 1 application Exte rnally Twice a day to area on scalp with hairloss for 30 days Not-Taking Chlophedianol-Chlorcyclizine 25 once a day 24 Active PROCEDURES No Information RESULTS No Results REASON FOR VISIT 2WK POST OP MEDICAL (GENERAL) HISTORY Type Description Date Medical History HTN Surgical History Cyst removal Surgical History tonsillectomy 04/2020 Surgical History laparoscopy Hospitalization History Surgery related only Goals Section No Information Health Concerns No Information MEDICAL EQUIPMENT No Information MENTAL STATUS No Information FUNCTIONAL STATUS No Information ASSESSMENTS Encounter Date Diagnosis Assessment Notes Treatment Notes Treatm ent Clinical Notes Jul, Pelvic congestion syndrome (ICD-10 - N94.89) I reviewed operative findings and discuss treatment options for pelvic congestion syndrome. After consultation patient has expressed desire to proceed with surgical management with hysterectomy and she will follow-up for her surgical discussion. Jul, Aftercare following surgery of the genitourinary system (ICD-10 - Z48.816) PLAN OF TREATMENT Treatment Notes Assessment Notes Clinical Notes Pelvic congestion syndrome I reviewed op erative findings and discuss treatment options for pelvic congestion syndrome. After consultation patient has expressed desire to proceed with surgical management with hysterectomy and she will follow-up for her surgical discussion. Next Appt Details Provider Name:Kristi Walker, 2020-09-21 0 1:00:00 PM, [address] [place] [address], [phone], Provider Name:Kristi Walker, 2020-10-21 0 8:20:00 AM, [address] [place] [address], [phone], Provider Name:Kristi Walker, 2020-11-17 0 8:20:00 AM, [address] [place] [address], [phone], Insurance Providers Payer Name Payer Address Payer Phone Insured Name Patient Relati onship to Insured Coverage Start Date Coverage End Date [employer] P[employer] [phone] [address] [place]VO self
--- OUTSIDE RECORDS SUMMARY | 2020-10-24 20:55 | CCD ---
Author Author [facility] Organization [facility] Address Unknown Phone Unavailable Care Team Providers Care Private Wealth Advisor Name Role Phone Kristi Walker Unavailable PROBLEMS Type Condition ICD9-CM Code WJA90-QR Code Onset Dates Condition S tatus SNOMED Code Notes Problem Acne vulgaris L70.0 Active [id number] ALLERGIES Allergen (clinical drug ingredient) Drug/Non Drug Allergy do cumented on EMR Reaction Allergy Type Onset Date Status seasonal Unknown Non Drug Allergy 06/25/2020 Active ENCOUNTERS from 1988 to 2020-08-06 Encounter Location Date Provider Diagnosis [facility] [address] [place] [address] Jun, Kristi Walker Pelvic pain R10.2 IMMUNIZATIONS No Information [...] FOR REFERRAL No Information VITAL SIGNS Weight 269 lbs Jun, Height 66.5 in Jun, BMI 42.76 kg/m2 Jun, Blood pressure systolic 136 mm Hg Jun, Blood pressure diastolic 86 mm Hg Jun, MEDICATIONS Medication SIG (Take, [...] Information RESULTS No Results REASON FOR VISIT OVARIAN CYST MEDICAL (GENERAL) HISTORY Type Description Date Medical History HTN Surgical History Cyst removal Surgical History tonsillectomy 04/2020 Surgical History laparoscopy Hospitalization History Surgery related only Goals Section No Information Health Concerns No Information MEDICAL EQUIPMENT No Information MENTAL STATUS No Information FUNCTIONAL STATUS No Information ASSESSMENTS Encounter Date Diagnosis Assessment Notes Treatment Notes Treatm ent Clinical Notes Jun, Pelvic pain (ICD-10 - R10.2) I discussed treatment option for CPP. Patient is not a candidate for estrongen and has had bad experince with Mirena. She desires Dx Laparoscopy. She will f/u for preoperative appt PLAN OF TREATMENT Treatment Notes Assessment Notes Clinical Notes Pelvic pain I discussed treatmen t option for CPP. Patient is not a candidate for estrongen and has had bad experince with Mirena. She desires Dx Laparoscopy. She will f/u for preoperative appt Next Appt Details Provider Name:Kristi Maldonado Walker, 2020-09-21 0 1:00:00 PM, [address] [place] [address], [phone], Provider Name:Kristi Kayeemi 2020-10-21 0 8:20:00 AM, [address] [place] [address], [phone], Provider Name:Kristi Kayeemi 2020-11-17 0 8:20:00 AM, [address] [place] [address], [phone], Insurance Providers Payer Name Payer Address Payer Phone Insured Name Patient Relati onship to Insured Coverage Start Date Coverage End Date [employer] P[employer] [phone] [address] AL[place]ONTALVO self
[2020-10-24] MEDS ORDERED: GI COCKTAIL 50ML BTL(HYOSCYAMINE/MAALOX/LIDOCAINE VISCOUS)(1:3:1) PO ONE (21:30)
[2020-10-24 21:44] LABS: BASO # 0.1 10^3/uL (0.0-0.2); BASO % 0.6 % (0.0-1.0); EOS # 0.2 10^3/uL (0.0-0.5); EOS % 1.9 % (0.0-3.0); HEMATOCRIT 39.1 % (36.0-47.0); HEMOGLOBIN 13.2 g/dl (12.0-15.5); LYMPH # 3.3 10^3/uL (1.5-5.0); LYMPH % 33.4 % (24.0-44.0); MEAN CORPUSCULAR HEMOGLOBIN 29.2 pg (27.0-33.0); MEAN CORPUSCULAR HGB CONC 33.8 g/dl (32.0-36.5); MEAN CORPUSCULAR VOLUME 86.5 fl (80.0-96.0); MONO # 0.7 10^3/uL (0.0-0.8); MONO % 7.3 % (2.0-8.0); NEUTROPHILS # 5.7 10^3/uL (1.5-8.5); NEUTROPHILS % 56.6 % (36.0-66.0); PLATELET COUNT, AUTOMATED 405 10^3/uL (150-450); RED BLOOD COUNT 4.52 10^6/uL (4.00-5.40)
--- OUTSIDE RECORDS SUMMARY | 2020-10-24 21:53 | CCD ---
Author Author [facility] Organization [facility] Address Unknown Phone Unavailable Care Team Providers Care Carrier Blower Name Role Phone Miguel Andreea Keesha INDEPENDENT FREIGHT AGENT Unavailable Unavailable Andreea Riverassica INDEPENDENT FREIGHT AGENT Unavailable Unavailable Miguel Andreea Keesha INDEPENDENT FREIGHT AGENT Unavailable Unavailable Miguel Andreea Keesha INDEPENDENT FREIGHT AGENT Unavailable Unavailable Andreea Riverassica INDEPENDENT FREIGHT AGENT Unavailable Unavailable Andreea Riveraica INDEPENDENT FREIGHT AGENT Unavailable Unavailable Sophie Gomez MD Unavailable Unavailable [...] Unavailable Unavailable Sophie Gomez MD Unavailable Unavailable Sophei Gomez MD Unavailable Unavailable Sophie Gomez MD [...] Unavailable Unavailable Anselmo Agrawal MD Unavailable Unavailable Asnelmo Agrawal MD Unavailable Unavailable Anselmo Agrawal MD [...] Anselmo Agrawal MD Unavailable Unavailable Mg, Vicki FULL TIME PARAMEDIC Unavailable Unavailable Mg, Vicki FULL TIME PARAMEDIC Unavailable Unavailable Mg, Vicki FULL TIME PARAMEDIC Unavailable Unavailable Mg, Ivcki FULL TIME PARAMEDIC Unavailable Unavailable Mg, Vicki FULL TIME PARAMEDIC Unavailable Unavailable Mg, Vicki FULL TIME PARAMEDIC Unavailable Unavailable Mg, Vicki FULL TIME PARAMEDIC Unavailable Unavailable Mg, Vicki FULL TIME PARAMEDIC Unavailable Unavailable Mg, Vicki FULL TIME PARAMEDIC Unavailable Unavailable Mg, Vicki FULL TIME PARAMEDIC Unavailable Unavailable Mg, Vicki FULL TIME PARAMEDIC Unavailable Unavailable Alma II, Car PA Unavailable [...] is protected by Article 27-F of the [facility] Public Health law. If you continue you may have access to information: Regarding HIV / AIDS; Provided by facilities licensed or operated by the [facility] Office of Mental Health; or Provided by the [facility] Office for People With Developmental Disabilities. If such information is present, then the following [facility] mandated warning applies: This information has been [...] law may result in a fine or custodial sentence or both. A general authorization for the release of medical or other information is NOT sufficient authorization for further disc losure. Allergies and Adverse Reactions Type Description Substance Reaction Status Data Source(s ) Propensity to adverse reactions seasonal Propensity to ad verse reactions Unknown Active [facility] ([facility]) Propensity to adverse reactions seasonal Propensity to ad verse reactions Unknown Active eCW1 ([facility]) Propensity to adverse reactions seasonal Propensity to ad verse reactions Unknown Active eCW1 ([facility]) Propensity to adverse reactions seasonal Propensity to ad verse reactions Unknown Active eCW1 ([facility]) Propensity to adverse reactions seasonal Propensity to ad verse reactions Unknown Active eCW1 ([facility]) Propensity to adverse reactions seasonal Propensity to ad verse reactions Unknown Active eCW1 ([facility]) Family History Family Member Name Family Member Gender Family Member Status Date o f Status Description Data Source(s) Unknown Female Diagnosis 07/09/2018 12:00:00 AM EDT [facility] ([facility]) Unknown Female Diagnosis 07/22/2013 12:00:00 AM EST NextGen ([facility]) Unknown Male Problem MEDENT ([facility]) Unknown Unknown Problem MEDENT ([facility]) Unknown Unknown Problem MEDENT ([facility] Encounters Encounter Providers Location Date Indications Data Source(s ) Outpatient Attender: Vicki fitzpatrick 08/27/2020 04:50:00 PM EST MEDENT ([facility] [place] [address] [place] [address] 08/26/2020 12:00:00 AM EST eCW1 ([facility]) [place] [address] [place] [address] 07/31/2020 12:00:00 AM EST eCW1 ([facility]) [place] [address] [place] [address] 07/29/2020 12:00:00 AM EST eCW1 ([facility]) (WC PO) [address] [facility] [address] [place] [address] 07/16/2020 12:00:00 AM EST eCW1 ([facility]) [place] [address] [place] [address] 06/25/2020 12:00:00 AM EDT [facility]CW1 [facility] [place] [address] [place] [address] 06/12/2020 12:00:00 AM EDT eCW1 ([facility]) Outpatient Attender: Suresh Gomez MD 06/09/2020 08:32:00 AM EDT [facility] Outpatient Attender: Suresh Gomez MD 06/08/2020 01:13:02 PM EDT [facility] Outpatient Attender: Suresh MOULTON 06/08/2020 01:13:01 PM EDT [facility] Outpatient Attender: Suresh Gomez MD 06/08/2020 12:14:03 PM EDT [facility] Outpatient Attender: Suresh Gomez MD 06/08/2020 12:14:01 PM EDT [facility] Outpatient Attender: Car Agrawal MDAdmitter: Car Agrawal MD E [email or web address] 05/08/2020 12:51:59 PM EDT [facility] Pre Test Counseling Attender: Keesha HEATH PPNC[facility] 05/07/2020 01:30:00 PM EDT - 05/07/2020 01:30:00 PM EDT Other specified noninflammatory disorders of vagina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) w/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Encounter for oth general cnsl and advice on contraceptionOther sex counselingHuman immunodeficiency virus [HIV] counselingEncounter for screening for human immunodeficiency virus NextGen ([facility]) Other specified noninflammatory disorder s of vagina 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) w/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 Encounter for oth general cnsl and advic e on contraception Other sex counseling Human immunodeficiency virus [HIV] couns eling Encounter for screening for human immuno deficiency virus [facility] [address] [place] [address] 02/26/2020 12:00:00 AM EDT eCW1 ([facility]) Outpatient Attender: Suresh MOULTON 02/18/2020 07:51:46 PM EDT [facility] Outpatient Attender: Car Lee/Aitkin/Jasmeet/Rein dl 02/18/2020 08:45:00 AM EDT MEDENT ([facility]) Outpatient Attender: Suresh MOULTON 02/08/2020 12:16:13 AM EDT [facility] Outpatient Attender: Suresh MOULTON 01/31/2020 08:16:01 AM EDT [facility] Outpatient Attender: Suresh MOULTON 01/27/2020 01:23:01 PM EDT [facility] [address] [place] [address] 01/20/2020 12:00:00 AM EDT eCW1 ([facility]) [facility] Pre Test Counseling Attender: Keesha HEATH PPNCNY [place] 01/17/2020 08:45:00 AM EDT - 01/17/2020 08:45:00 AM EDT Other specified noninflammatory disorders of vaginaEncounter for oth general cnsl and advice on contraceptionOther sex counselingHuman immunodeficiency virus [HIV] counselingEncounter for screening for human immunodeficiency virus NextGen ([facility]) Other specified noninflammatory disorder s of vagina Encounter for oth general cnsl and advic e on contraception Other sex counseling Human immunodeficiency virus [HIV] couns eling Encounter for screening for human immuno deficiency virus Outpatient Attender: Suresh MOULTON 01/14/2020 02:04:02 PM EDT [facility] Outpatient Attender: Suresh MOULTON 01/14/2020 01:38:01 PM EDT [facility] Outpatient Attender: Car Lee/Aitkin/Jasmeet/Rein dl 01/14/2020 08:45:00 AM EDT MEDENT ([facility] [address] [place] [address] 01/14/2020 12:00:00 AM EDT eCW1 ([facility]) Outpatient Attender: Suresh Gomez MD FP 01/13/2020 03:29:01 PM EDT [facility] Outpatient Attender: Suresh Gomez MD FP 01/13/2020 02:30:01 PM EDT [facility] Outpatient Attender: Suresh Gomez MD FP 01/07/2020 12:06:01 PM EDT [facility] Outpatient Attender: Suresh Gomez MD FP 01/06/2020 04:48:01 PM EDT [facility] Outpatient Attender: Suresh Gomez MD FP 12/30/2019 09:01:05 PM EDT [facility] Outpatient Attender: Suresh Gomez MD FP 12/30/2019 10:49:00 AM EDT [facility] [address] [place] [address] 12/30/2019 12:00:00 AM EDT eCW1 ([facility]) Outpatient Attender: Suresh Gomez MD FP 12/26/2019 01:30:00 PM EDT [facility] Outpatient Attender: Suresh Gomez MD FP 12/04/2019 10:42:01 AM EDT [facility] Outpatient Attender: Suresh Gomez MD FP 11/28/2019 09:01:06 PM EDT [facility] Outpatient Attender: Suresh Gomez MD FP 11/28/2019 02:14:02 PM EDT [facility] Outpatient Attender: Suresh Gomez MD FP 11/28/2019 02:13:00 PM EDT [facility] Outpatient Attender: Suresh Gomez MD FP 11/28/2019 12:40:45 PM EDT [facility] Outpatient 11/26/2019 10:03:00 AM EDT [facility] Outpatient Attender: Suresh Gomez MD FP 11/21/2019 11:20:04 AM EDT [facility] Outpatient Attender: Suresh Gomez MD FP 11/15/2019 08:02:59 PM EST [facility] Outpatient Attender: Suresh Gomez MD FP 11/06/2019 09:01:06 PM [facility] Outpatient Attender: Suresh Gomez MD FP 11/06/2019 08:52:02 AM [facility] Outpatient Attender: Suresh Gomez MD FP 11/06/2019 08:52:01 AM [facility] Outpatient Attender: Suresh Gomez MD FP 11/06/2019 08:51:03 AM [facility] Outpatient Attender: Suresh Gomez MD FP 11/06/2019 08:50:01 AM [facility] Outpatient Attender: Suresh Gomez MD FP 11/06/2019 08:23:01 AM [facility] Outpatient Attender: Suresh Gomez MD FP 11/06/2019 08:21:00 AM [facility] Outpatient Attender: Suresh Gomez MD FP 11/04/2019 02:15:01 PM [facility] Outpatient Attender: Suresh Gomez MD FP 11/02/2019 09:55:59 AM [facility] Outpatient Attender: Suresh Gomez MD FP 11/01/2019 10:38:00 AM [facility] Outpatient Attender: Suresh Gomez MD FP 10/29/2019 02:56:01 PM [facility] Outpatient Attender: Suresh Gomez MD FP 10/29/2019 10:44:03 AM [facility] Outpatient Attender: Suresh Gomez MD FP 10/28/2019 11:04:00 AM [facility] Attender: Keesha Rivera INDEPENDENT FREIGHT AGENT PPNCNY [facility] 10/11/2019 02:15:00 PM EST - 10/11/2019 02:15:00 PM [facility] Acute vaginitisEncounter for oth general cnsl and advice on contraceptionOther sex counselingHuman immunodeficiency virus [HIV] counselingEncounter for screening for human immunodeficiency virus NextGen ([facility]) Acute vaginitis Encounter for oth general cnsl and advic e on contraception Other sex counseling Human immunodeficiency virus [HIV] couns [facility] Encounter for screening for human immuno deficiency virus Outpatient Attender: Suresh Gomez MD FP 09/17/2019 10:35:01 AM [facility] Medications Medication Brand Name Start Date [...] 03/26/2020 12:00:00 AM EDT ORAL active MEDENT ([facility] ) Acetaminophen 21.7 MG/ML / Hydrocodone Bitartrate 0.5 MG/ML Oral Solution Hydrocodone Bitartrate/Acetaminophen 03/26/2020 12:00:00 AM EDT ORAL active MEDENT ([facility] ) 1-0.05 % 01/15/2020 12:00:00 AM [...] AM EDT active 1 application eCW 1 ([facility]) 4 mg 01/10/2020 12:00:00 AM [...] TWELVE HOURS FOR 7 DAYS SOLD: 12/21/2019 [facility] Ketoconazole 20 MG/ML Medicated Shampoo KETOCONAZOLE 11/28/19 12:00:00 AM EDT shampoo 120 APPLY TO SCALP EVERY 2-3 DAYS WHEN BATHING, LET SIT FOR 3 MINUTES , THEN RINSE WELL APPLY TO SCALP EVERY 2-3 DAYS WHEN BATHI NG, LET SIT FOR 3 MINUTES , THEN RINSE WELL SOLD: 11/28/2019 [email or web address] 0.75 % 10/11/2019 12:00:00 AM EST [...] TABLET BY MOUTH EVERY DAY SOLD: 10/02/2019 [facility] Insurance Providers Payer name Policy type / Coverage type Policy ID Covered green party ID Covered green party's relationship to keane Policy Keane Plan Information [place] 302/307 [id number] SP [id number] EXCELLUS BC-BS PPO 306 [id number] SP [id number] SELF PAY SELF PAY ONLY [id number] SP [id number] [place] PPO 302/307 [id number] SP [id number] BCBS [place] 306/806 [id number] SP [id number] EXCELLUS BCBS B [id number] S [id number] [id number] OTHER WORKERS COMPENSATION INSURANCE COVID-19 COVID Hannah C OVID EXCELLUS BCBS [id number] Hannah VYS [id number] Excellus BCBS P [id number] S VYS [id number] EXCELLUS BC-BS PPO [id number] SP [id number] BCBS [place] PPO 302/307 [id number] SP [id number] BC[place] 306/806 [id number] SP [id number] BCBS OF [place] 306/806 [id number] SP [id number] UNHC COMMUNITY PLAN MCDHMO [id number] SP [id number] Managed Care - [facility] Community Plan P [id number] S [id number] Medicaid S [id number] S [id number] [id number] Community Plan Commercial [id number] Self [id number] [facility] [id number] SP [id number] Managed Care - Community Plan United Healthcare P [id number] S [id number] Managed Care - Community Plan United Healthcare P [id number] S [id number] United Healthcare Essential Plan P [id number] S [id number] United Healthcare [place] Medigap Part B [id number] Self [id number] Health Net Fed Standard Health Maintenance Organization (HMO ) [id number] United Healthcare Essential Plan P [id number] S [id number] United Healthcare [place] Medigap Part B [id number] Self [id number] Health Net Fed Standard Health Maintenance Organization (HMO ) [id number] UNHC COMMUNITY PLAN MCDHMO [id number] SP [id number] UNHC COMMUNITY PLAN MCDHMO [id number] SP [id number] [facility](MCAID) O [id number] S [id number] United Healthcare Essential Plan P [id number] S [id number] UNHC COMMUNITY PLAN MCDHMO [id number] SP [id number] Managed Care - United Health[facility] P [id number] S [id number] United CR/Community Julia Health Maintenance Organization (HMO) [id number] Self [id number] Managed Care - United HealthCare P [id number] S [id number] United Healthcare [place]/[facility] Medigap Part B [id number] Self [id number] Health Net Fed Standard Health Maintenance Organization (HMO ) [id number] UNITED HEALTHCARE(MCAID) O [id number] S [id number] UN COMMUNITY PLAN MCDO [id number] SP [id number] [facility] Medigap Part B [id number] Self [id number] Health Net Fed Standard Health Maintenance Organization (HMO ) [id number] Managed Care - [facility] P [id number] S [id number] [facility] Medigap Part B [id number] Self [id number] Health Net Fed Standard Health Maintenance Organization (HMO ) [id number] [facility] Medigap Part B [id number] Self [id number] Health Net Fed Standard Health Maintenance Organization (HMO ) [id number] [facility] Medigap Part B [id number] Self [id number] Health Net Fed Standard Health Maintenance Organization (HMO ) [id number] [facility] Medigap Part B [id number] Self [id number] Health Net Fed Standard Health Maintenance Organization (HMO ) [id number] UN COMMUNITY PLAN MCDO [id number] SP [id number] [facility] [id number] 2 [id number] MEDICAID [id number] SP [id number] Medicaid [place] Medigap Part B Self Health Net Federal [facility] Commercial [facility] [id number] SP [id number] MEDICAID - CLINIC [id number] [facility] CLAIMS [facility] [id number] Problems, Conditions, and Diagnoses Code Display Name Description Problem Type Effective Dates Data Source(s) N94.89 Pelvic congestion syndrome Pelvic congestion syndrome Problem 08/19/2020 12:00:00 AM [facility] ([facility]) H70.001 Acute mastoiditis without complications, right ear Acute mastoiditis without complications, right ear 01/07/2020 12:04:54 PM EDT [facility] L70.0 [id number] Acne vulgaris Problem 12/30/2019 12:00:00 AM EDT [facility] ([facility]) L70.0 [id number] Acne vulgaris Problem 12/30/2019 12:00:00 AM EDT [facility] ([facility]) [id number] Seborrhea capitis Seborrhea capitis 11/28/2019 02:12:10 PM EDT [facility] 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 STI / H 05/07/2020 12:00:00 AM EDT - 05/07/2020 12:00:00 AM EDT [facility] ([facility]) CVR Web Feeder.Svc. Other 05/07/2020 12:00:00 AM EDT - 2019 12:00:00 AM EDT [facility] ([facility]) CVR Web Feeder.Svc. Contraceptive 05/07/2020 12 :00:00 AM EDT - 05/07/2020 12:00:00 AM EDT [facility] ([facility]) CVR Med.Svc. Vaginitis Rx 05/07/2020 12: 00:00 AM EDT - 05/07/2020 12:00:00 AM EDT [facility] ([facility]) CVR Med.Svc. Extremities 05/07/2020 12:0 0:00 AM EDT - 05/07/2020 12:00:00 AM EDT [facility] ([facility]) CVR Med.Svc. Abdominal Palp. 05/07/2020 12:00:00 AM EDT - 05/07/2020 12:00:00 AM EDT [facility] ([facility]) CVR Med.Svc. Heart/Lung Ausc. 05/07/2020 12:00:00 AM EDT - 05/07/2020 12:00:00 AM EDT [facility] ([facility]) CVR Med.Svc. Thyroid Palp. 05/07/2020 12 :00:00 AM EDT - 05/07/2020 12:00:00 AM EDT [facility] ([facility]) CVR Med.Svc. Height/Weight 05/07/2020 12 :00:00 AM EDT - 05/07/2020 12:00:00 AM EDT [facility] ([facility]) CVR Blood Pressure 05/07/2020 12:00:00 AM EDT - 2019 12:00:00 AM EDT [facility] ([facility]) CVR Med.Svc. Other 05/07/2020 12:00:00 AM EDT - 2019 12:00:00 AM EDT [facility] ([facility]) SMEAR, WET MOUNT, SALINE/INK 05/07/2020 12:00:00 AM EDT - 05/07/2020 12:00:00 AM EDT [facility] ([facility]) ASSAY OF BODY FLUID ACIDITY 05/07/2020 1 2:00:00 AM EDT - 05/07/2020 12:00:00 AM EDT [facility]Gen ([facility]) PREV VISIT, EST, AGE 18-39 05/07/2020 12 :00:00 AM EDT - 05/07/2020 12:00:00 AM EDT [facility]Gen ([facility]) HCS Pre Test Counseling 05/07/2020 12:00 :00 AM EDT - 05/07/2020 12:00:00 AM EDT NextGen ([facility]) HIV-1/HIV-2, SINGLE ASSAY 05/07/2020 12: 00:00 AM EDT - 05/07/2020 12:00:00 AM EDT NextGen ([facility]) Injection, triamcinolone acetonide, not otherwise specified , 10 mg 01/20/2020 12:00:00 AM EDT eCW1 ([facility]) INJECT SKIN LESIONS </W 7 01/20/2020 12:00:00 AM EDT eCW1 ([facility]) CVR Web Feeder.Svc. STI / H 01/17/2020 12:00:00 AM EDT - 01/17/2020 12:00:00 AM EDT NextGen ([facility]) CVR Web Feeder.Svc. Other 01/17/2020 12:00:00 AM EDT - 2019 12:00:00 AM EDT NextGen ([facility]) CVR Web Feeder.Svc. Contraceptive 01/17/2020 12 :00:00 AM EDT - 01/17/2020 12:00:00 AM EDT NextGen ([facility]) CVR Med.Svc. Height/Weight 01/17/2020 12 :00:00 AM EDT - 01/17/2020 12:00:00 AM EDT [facility]Gen ([facility]) CVR Blood Pressure 01/17/2020 12:00:00 AM EDT - 2019 12:00:00 AM EDT NextGen ([facility]) CVR Med.Svc. Other 01/17/2020 12:00:00 AM EDT - 2019 12:00:00 AM EDT NextGen ([facility]) SMEAR, WET MOUNT, SALINE/INK 01/17/2020 12:00:00 AM EDT - 01/17/2020 12:00:00 AM EDT [facility]Gen ([facility]) ASSAY OF BODY FLUID ACIDITY 01/17/2020 1 2:00:00 AM EDT - 01/17/2020 12:00:00 AM EDT [facility]Gen ([facility]) OFFICE VISIT, EST 01/17/2020 12:00:00 AM EDT - 020 12:00:00 AM EDT [facility]Gen ([facility]) HCS Pre Test Counseling 01/17/2020 12:00 :00 AM EDT - 01/17/2020 12:00:00 AM EDT [facility]Gen ([facility]) HIV-1/HIV-2, SINGLE ASSAY 01/17/2020 12: 00:00 AM EDT - 01/17/2020 12:00:00 AM EDT NextGen ([facility]) TANGNTL BX SKIN SINGLE LES 12/30/2019 12:00:00 AM EDT eCW1 ([facility]) Results ID Date Data Source [id number] 10/14/2020 12:00:00 AM EST [facility] Name Value Range Interpretation Code Description Data Cassy rce(s) Supporting Document(s) SARS-CoV2 Rapid Antigen Negative [facility] This lab was ordered by [facility] and reported by [facility]. ID Date Data Source [id number] 09/08/2020 10:35:00 AM EST [facility] Name Value Range Interpretation Code Description Data Cassy rce(s) Supporting Document(s) SARS coronavirus 2 RNA [facility] This lab was ordered by [facility] and reported by [facility]. ID Date Data Source [id number] 08/27/2020 12:00:00 AM EST [facility] Name Value Range Interpretation Code Description Data Cassy rce(s) Supporting Document(s) SARS coronavirus 2 Ag [facility] This lab was ordered by [facility] and reported by [facility] ID Date Data Source [id number] 07/21/2020 12:00:00 AM EST [facility] Name Value Range Interpretation Code Description Data Cassy rce(s) Supporting Document(s) 2019-nCoV RNA XXX CHASIDY+probe-Imp [facility] This lab was ordered by [facility] and reported by [employer] ID Date Data Source [id number] 06/26/2020 10:00:00 AM EDT [facility] Name Value Range Interpretation Code Description Data Cassy rce(s) Supporting Document(s) SARS coronavirus 2 RNA [facility] This lab was ordered by [facility] and reported by [facility]. ID Date Data Source [id number] 06/08/2020 11:56:00 AM EDT [facility] Name Value Range Interpretation Code Description Data Cassy rce(s) Supporting Document(s) BG FASTING 86 mg/dL 70-[address] [facility] Health ID Date Data Source [id number] 06/08/2020 11:56:00 AM EDT [facility] Name Value Range Interpretation Code Description Data Cassy rce(s) Supporting Document(s) HCT 41.1 % 36.0-47.0 N [facility] HGB 14.1 g/dL 12.0-15.5 N [facility] MCH 34.3 G/DL pg 32.0-36.5 N [facility] MCHC 30.6 PG % 27.0-33.0 N [facility] PLATELETS 393 10 10*3/mm3 150-450 N [facility] RBC 4.61 10 10*6/mm3 4.00-5.40 [facility] RDW 12.9 % 11.5-14.5 [facility] WBC TOTAL 10.5 4.0-10.0 H [facility] ID Date Data Source [id number] 05/07/2020 01:59:28 PM EDT NextGen ([facility]) Name Value Range Interpretation Code Description Data Cassy rce(s) Supporting Document(s) Hyphae/Erlinda: no; Budding yeast: no; Trich: no; Clue cells: yes (>=20%); WBCs: no; Amine/Whiff test: negative; pH: 4.5 Abnormal (applies to non-numeric results) Wet Prep NextGen ([facility]) ID Date Data Source [id number] 05/07/2020 01:59:08 PM EDT NextGen ([facility]) Name Value Range Interpretation Code Description Data Cassy rce(s) Supporting Document(s) pH: 4.5. Vaginal pH [facility] ([facility]) ID Date Data Source [id number] 05/07/2020 01:31:45 PM EDT NextGen ([facility]) Name Value Range Interpretation Code Description Data Cassy rce(s) Supporting Document(s) Non-Reactive (Negative); Lot : [id number]; Exp: 08/13/2020; Start time: 1:29 PM; Completed time: 1:31 PM Rapid HIV Next Gen [facility] ID Date Data Source [id number] 03/26/2020 12:09:00 PM EDT MEDENT ([facility], ) Name Value Range Interpretation Code Description Data Cassy rce(s) Supporting Document(s) Surgical pathology study Laboratory test result [facility] ([facility], ) FINAL DIAGNOSIS A--Tonsil, right, tonsillectomy: [...] x 1.0 cm. Specimen is unremar kable. Miner Placer sections are submitted in one. B - Received in formalin labeled "left tonsil" consists of a tonsil, 3 x 1.3 x 1.0 cm. The specimen is grossly u nremarkable. Miner Placer sections are submitted in one. -OA 03/26/2020 - 1604 Signed MAXI PANTOJA MD 03/27/2020 1143 ID Date Data Source [id number] 03/21/2020 10:30:00 AM EDT [facility] Name Value Range Interpretation Code Description Data Cassy rce(s) Supporting Document(s) SARS coronavirus 2 RNA [facility] This lab was ordered by [facility] and reported by [facility]. ID Date Data Source [id number] 01/31/2020 08:07:04 AM EDT [facility] Measurements & CalculationsWeight: 267 pounds 121.36 kg Vital SignsPulse Rate: 66 beats/minuteBlood Pressure: 128/86 Vital Signs performed by: Leo Schwartz MA, January 31, 2020 8:08 AM Name Value Range Interpretation Code Description Data Cassy rce(s) Supporting Document(s) ID Date Data Source [id number] 01/17/2020 09:34:48 AM EDT NextGen ([facility]) Name Value Range Interpretation Code Description Data Cassy rce(s) Supporting Document(s) NegativeHyphae/Erlinda: noB udding yeast: noTrich: noClue cells: noWBCs: noAmine/Whiff test: negativepH: 4.5 Wet [place] NextGen ([facility]) ID Date Data Source [id number] 01/17/2020 09:34:30 AM EDT Next[facility] ([facility]) Name Value Range Interpretation Code Description Data Cassy rce(s) Supporting Document(s) pH: 4.5. Vaginal pH [facility] ([facility]) ID Date Data Source [id number] 01/17/2020 08:58:56 AM EDT Next[facility] ([facility]) Name Value Range Interpretation Code Description Data Cassy rce(s) Supporting Document(s) Non-Reactive (Negative)Lot: [id number]: 05/14/2020Test date: 01/17/2020Start time: 8:55 AMCompleted time: 8:58 AM Rapid HIV NextGen ([facility]) ID Date Data Source [id number] 01/07/2020 11:33:05 AM EDT [facility] Measurements & CalculationsHeight: 66 inches 167.64 cm Weight: 268.8 pounds 122.18 kg Body Mass Index (BMI): 43.54BMI Interpretation: Morbidly ObeseBody Surface Area (BSA): 2.27Weight Management Education Done (Nutrition/Physical Activity)Vital SignsTemperature: 98.7F 37.06C tympanic Pulse Rate: 72 beats/minuteRespiratory Rate: 16 respirations/minuteBlood Pressure: 130/82 left arm sitting automaticO2 Saturation: 99% room airVital Signs performed by: Lilliana Recinos , January 07, 2020 11:43 AMVital Signs [...] DERMATOLOGYHave you seen a [facility]? [facility]: [facility]Intake performed by: [...] scalp biopsy about 1 week ago, by [facility] dermatology. Pt is waiting for biopsy results, but states they don't think it is alopecia. They are thinking her hair loss is lupus. Transitions of Care InboundProblem ReviewProblem List was reviewed and/or updated during this visit.Medication Reconciliation & ReviewMedication List was reviewed and/or updated during this visit, including review of any wstp-nim-ifbjgnp medications, herbal therapies, and/or supplements.Allergy ReviewAllergy List [...] Problems:Added: Acute mastoiditis without complications, right ear (GPN96-I31.001) Assessment: Instructions: Start antibotics as prescribed. Take [...] medication. Keep out of the reach of [facility] for worsening symptoms.Patient Instructions/Care Plan: Acute mastoiditis [...] medication. Keep out of the reach of [facility] for worsening symptoms. Plan developed in collaboration [...] (Critical)Orders:Adult - Ofc Vst, EST, Level II [CPT-13145] Follow-Up Return to clinic: as needed Clinical Visit Summary CompletedMedications:PERCOCET 5-325 MG ORAL TABLET (OXYCODONE- ACETAMINOPHEN) Take 1 tablet po q 6 hrs prn; MDD 4 tablets #12[Tablet] x 0 Route:ORAL Entered and Authorized by: Eduar ORTIZ Method used: Electronically to [facility] ([employer] [address] [place] [address] Fax: Note to Pharmacy: Route: ORAL; RxID: [id number] 500 MG ORAL CAPSULE (CEPHALEXIN) Take 1 tablet po QID x 7 days #28[Capsule] x 0 Route:ORAL Entered and Authorized by: Eduar ORTIZ Method used: Electronically to [facility] ([facility]) [address] [place] [address] Fax: Note to Pharmacy: Route: ORAL; Indications: ACUTE MASTOIDITIS WITHOUT COMPLICATIONS, RIGHT EAR RxID: [id number] signed by Eduar ORTIZ on 01/14/2020 at 1:37 PM Name Value Range Interpretation Code Description Data Cassy rce(s) Supporting Document(s) ID Date Data Source [id number] 12/30/2019 11:01:43 AM EDT [facility] Initial Intake Information from: [facility] WinstonMeasurements & CalculationsHeight: [...] rce(s) Supporting Document(s) ID Date Data Source [id number] 12/13/2019 12:00:00 AM EDT [facility] Name Value Range Interpretation Code Description Data Cassy rce(s) Supporting Document(s) 2019-nCoV N XXX Ql CHASIDY N2 [facility] [place] This lab was ordered by [facility] and reported by [facility]. ID Date Data Source [id number] 11/28/2019 01:31:42 PM EDT [facility] Measurements & CalculationsHeight: 66 inches (5 [...] (ER) or urgent care clinic? 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 Start Ketoconazole shampoo, instructed on how to use. Alternate days with normal shampoo. Avoid scratching as part of the alopecia may be mechanical shearing. Differential includes fungal versus atopic origin of scaling and itching.Seborrhea capitis (NJT67-K73.0) Assessment: Instructions: As above.Assessment not Saved Circumscribed alopecia areata of scalp (EPT20-H79.8): Comment OnlyInstructions: Referral to dermatology. Start Ketoconazole [...] Method: ElectronicAllergies:* POLLEN (Critical)* LATEX (Critical)Orders:Dermatology Consult [CPT-57148] Adult - Ofc Vst, EST, Level II [CPT-26634] Follow-Up Return to clinic: as needed Med ications:KETOCONAZOLE 2 % EXTERNAL SHAMPOO (KETOCONAZOLE) Apply to scalp every 2-3 days when bathing, let sit for 3 mins, then rinse well #4[Ounce] x 5 Route:EXTERNAL Entered and Authorized by: Eduar ORTIZ Method used: Electronically to [facility] (retail) [address] [place] [address] Fax: Note to Pharmacy: Route: EXTERNAL; Indications: CIRCUMSCRIBED ALOPECIA AREATA OF SCALP;SEBORRHEA CAPITIS RxID: [id number]] Name Value Range Interpretation Code Description Data Cassy rce(s) Supporting Document(s) ID Date Data Source [id number] 11/21/2019 08:41:50 AM EDT [facility] Measurements & CalculationsWeight: 269 pounds 4 oz. 122.39 kg Vital SignsPulse Rate: 73 beats/minuteBlood Pressure: 118/72 Vital Signs performed by: Leo Schwartz MA, November 21, 2019 8:58 AMAssessment & Plan Orders:[id number] Vst-Est Level I [CPT-41828] Labs In-House Blood TestsDate/Time Collected: November 21, 2019 8:42 AMTest Result Reference Range Normal ValueComments: blood draw done in office done in the right ac tolerated well Leo Schwartz MA, November 21, 2019 8:42 AM _ Name Value Range Interpretation Code Description Data Cassy rce(s) Supporting Document(s) ID Date Data Source [id number] 11/06/2019 08:26:24 AM [facility] Measurements & CalculationsHeight: 66 inches (5 [...] during this visit, including review of any dqsy-vzl-qlzywok medications, herbal therapies, and/or supplements.Allergy ReviewAllergy List [...] FairAssessment & Plan Problems:Added: MORBID OBESITY (ICD-278.01) (DIY43-F97.01) Assessment: Instructions: Recommend healthy lifestyle modification. Encourage portion control, healthy food choices, and increasing routine physical activity. Recommendation is for 150 minutes throughout the week of cardiovascular exercise.BMI 40.0-44.9 (ICD-V85.41) (NHW47-A70.41) Assessment: Instructions: Continue per Dr. Winston.Assessed:Essential (primary) hypertension (ZQG38-X93) Assessment: Instructions: Continue current medication. Complete labs [...] (Critical)Orders:Adult - Ofc Vst, EST, Level II [CPT-64136] Follow-Up Return to clinic: in 90 days for preventive care visitAdditional Follow-Up: annual PE, HTNClinical Visit Summary Declined][Immunization Management] Name Value Range Interpretation Code Description Data Cassy rce(s) Supporting Document(s) Procedure Social History Code Duration Value Status Description Data Source(s ) Smoking 08/27/2020 12:00:00 AM EST Patient has never smoked co mpleted Patient has never smoked [facility] ([facility]) Smoking 07/16/2020 12:00:00 AM EST Never Smoker completed Never S moker eCW1 ([facility]) Smoking 07/16/2020 12:00:00 AM EST Never Smoker completed Never S moker eCW1 ([facility]) Smoking 07/16/2020 12:00:00 AM EST Never Smoker completed Never S moker eCW1 ([facility]) Smoking 07/16/2020 12:00:00 AM EST Never Smoker completed Never S moker eCW1 ([facility]) Smoking 07/16/2020 12:00:00 AM EST Never Smoker completed Never S moker eCW1 ([facility]) Smoking 07/16/2020 12:00:00 AM EST Never Smoker completed Never S moker eCW1 ([facility]) Smoking 05/07/2020 12:00:00 AM EDT Never smoker completed Never s moker NextGen ([facility]) Vital Signs ID Date Data Source UNK Name Value Range Interpretation Code Description Data Source(s) Body temperature 98.6 [degF] 98.6 [degF] [facility] ([facility]) Oxygen saturation in Arterial blood by Pulse oximetry 98 % 98 % [facility] ([facility]) Respiratory rate 14 /min 14 /min [facility] ( [facility]) Heart rate 82 /min 82 /min [facility] ([facility], [facility]) Diastolic blood pressure 90 mm[Hg] 90 mm[Hg] MED[facility] ([facility], [facility]) Systolic blood pressure 137 mm[Hg] 137 mm[Hg] M EDENT ([facility], [facility]) Body mass index (BMI) [Ratio] 40.8 kg/m2 40.8 k g/m2 [facility] ([facility], [facility]) Body height 66 [in_i] 66 [in_i] MED[facility] ([facility], [facility]) 5'6" Body weight 253.00 [lb_av] 253.00 [lb_av] MEDEN T ([facility], [facility]) Diastolic blood pressure 78 mm[Hg] 78 mm[Hg] eCW1 ([facility]) Systolic blood pressure 132 mm[Hg] 132 mm[Hg] e CW1 ([facility]) Body mass index (BMI) [Ratio] 42.92 kg/m2 42.92 kg/m2 eCW1 ([facility]) Body height 66.5 [in_i] 66.5 [in_i] eCW1 ([facility]) Body weight 270 [lb_av] 270 [lb_av] eCW1 ([facility]) Diastolic blood pressure 76 mm[Hg] 76 mm[Hg] eCW1 ([facility]) Systolic blood pressure 122 mm[Hg] 122 mm[Hg] e CW1 ([facility]) Body mass index (BMI) [Ratio] 43.08 kg/m2 43.08 kg/m2 eCW1 ([facility]) Body height 66.5 [in_i] 66.5 [in_i] eCW1 ([facility]) Body weight 271 [lb_av] 271 [lb_av] eCW1 ([facility]) Diastolic blood pressure 86 mm[Hg] 86 mm[Hg] eCW1 ([facility]) Systolic blood pressure 136 mm[Hg] 136 mm[Hg] e CW1 ([facility]) Body mass index (BMI) [Ratio] 42.76 kg/m2 42.76 kg/m2 eCW1 ([facility]) Body height 66.5 [in_i] 66.5 [in_i] eCW1 ([facility]) Body weight 269 [lb_av] 269 [lb_av] eCW1 ([facility]) Body mass index (BMI) [Ratio] 43.45 kg/m2 Overweight 43.45 kg/m2 Next[facility] ([facility]) Diastolic blood pressure 80 mm[Hg] 80 mm[Hg] NextGen ([facility]) Systolic blood pressure 122 mm[Hg] 122 mm[Hg] N extGen ([facility]) Body weight 122.107 kg 122.107 kg [facility] Body height 167.64 cm 167.64 cm [facility] ([facility]) Body weight 115.214 kg 115.214 kg [facility] ([facility], ) Body mass index (BMI) [Ratio] 41.0 kg/m2 41.0 k g/m2 MEDENT ([facility], ) Body weight 254.00 [lb_av] 254.00 [lb_av] MEDEN T ([facility], ) Body height 66 [in_i] 66 [in_i] [facility] ([facility], ) 5'6" Diastolic blood pressure 86 mm[Hg] 86 mm[Hg] eCW1 ([facility]) Systolic blood pressure 124 mm[Hg] 124 mm[Hg] e CW1 ([facility]) Body mass index (BMI) [Ratio] 43.21 kg/m2 43.21 kg/m2 eCW1 ([facility]) Body height 66.5 [in_us] 66.5 [in_us] W1 ([facility]) Body weight Measured 271.8 [lb_av] 271.8 [lb_av ] W1 ([facility]) Body mass index (BMI) [Ratio] 43.58 kg/m2 Overweight 43.58 kg/m2 Next[facility] ([facility]) Diastolic blood pressure 82 mm[Hg] 82 mm[Hg] Next[facility] ([facility]) Systolic blood pressure 132 mm[Hg] 132 mm[Hg] N extGen ([facility]) Body weight 122.470 kg 122.470 kg [facility] ([facility]) Body height 167.64 cm 167.64 cm [facility] ([facility]) Diastolic blood pressure 74 mm[Hg] 74 mm[Hg] eCW1 ([facility]) Systolic blood pressure 128 mm[Hg] 128 mm[Hg] e CW1 ([facility]) Body mass index (BMI) [Ratio] 42.84 kg/m2 42.84 kg/m2 [facility] ([facility]) Body height 66.5 [in_us] 66.5 [in_us] [facility] ([facility]) Body weight Measured 269.5 [lb_av] 269.5 [lb_av ] [facility] ([facility]) Body weight 115.214 kg 115.214 kg [facility] ([facility], ) Body mass index (BMI) [Ratio] 41.0 kg/m2 41.0 k g/m2 [facility] ([facility]) Body weight 254.00 [lb_av] 254.00 [lb_av] MEDEN T ([facility]) Body height 66 [in_i] 66 [in_i] [facility] ([facility]) 5'6" Diastolic blood pressure 78 mm[Hg] 78 mm[Hg] eCW1 ([facility]) Systolic blood pressure 138 mm[Hg] 138 mm[Hg] e CW1 ([facility]) Body mass index (BMI) [Ratio] 43.18 kg/m2 43.18 kg/m2 W1 ([facility]) Body height 66.5 [in_us] 66.5 [in_us] [facility] ([facility]) Body weight Measured 271.6 [lb_av] 271.6 [lb_av ] [facility] ([facility]) Patient Treatment Plan of Care Planned Activity Planned Date Details Description Data Source (s) Betamethasone 0.5 MG/ML / Clotrimazole 10 MG/ML Topica l Cream 01/14/2020 12:00:00 AM EDT eCW1 ([facility])
[2020-10-24 22:09] LABS: ALBUMIN 3.3 GM/DL (3.2-5.2); ALT/SGPT 20 U/L (12-78); BILIRUBIN,DIRECT 0.1 MG/DL (0.0-0.2); BILIRUBIN,TOTAL 0.2 MG/DL (0.2-1.0); CK-MB VALUE MASS < 1.0 NG/ML (<3.6); CPK CREATINE PHOSPHOKINASE 52 U/L (26-192); LIPASE 66 U/L (73-393); MB/CK RELATIVE INDEX 1.92 (< OR =4); TOTAL PROTEIN 7.3 GM/DL (6.4-8.2); TROPONIN I < 0.02 NG/ML (< 0.10)
[2020-10-24] MEDS ORDERED: PANT40TA29 PO (22:28)
[2020-10-24] MEDS ORDERED: SUCR1ORA PO (22:28)
[2020-10-24] MEDS ORDERED: POTA10TA17 PO (22:28)
[2020-10-24] MEDS ORDERED: POTASSIUM CHLORIDE 10 MEQ SR TABLET PO ONE (22:30)
[2020-10-24] MEDS ORDERED: SUCRALFATE 1 GM TAB PO ONE (22:30)
[2020-10-24 22:31] VITALS: BP 154/72
--- NOTE | 2020-10-25 20:44 | ECGEPIP ---
[facility] - ED Test Date: 2020-10-24 Pat Name: ALIN KIRKPATRICK Department: Room: - Gender: Female [employer]er: : 1990 Requested By: GUSTAVO HEATH Order Number: [id number] Reading MD: Zina Carreno Measurements Intervals [place] Rate: 73 P: 53 MI: 152 QRS: 66 QRSD: 104 T: 29 QT: 398 QTc: 441 Interpretive Statements SINUS RHYTHM WITH SINUS ARRHYTHMIA NONSPECIFIC T-WAVE ABNORMALITY DECREASED RATE 08/17/18 Electronically Signed on 10-25-2020 20:43:45 EST by Zina Carreno
== END 2020-10-24 22:39 | disposition home or self-care (01) ==
LOC: M ED 20:47
DX: K29.70 Gastritis, unspecified, without bleeding (principal); E87.6 Hypokalemia; I10 Essential (primary) hypertension; Z91.040 Latex allergy status

== ENCOUNTER 2020-10-29 09:06 | Emergency (ER) | payer BC ==
[~2020-10-29] VITALS: Ht 167.6 cm; Wt 121.4 kg
[~2020-10-29 09:06] MED LIST changes: +PANT40TA29 PO; +POTA10TA17 PO; +SUCR1ORA PO
--- OUTSIDE RECORDS SUMMARY | 2020-10-29 09:13 | CCD ---
Author Author [facility] Organization [facility] Address Unknown Phone Unavailable Care Team Providers Care Weaver [place] Name Role Phone Rivera, Andreea Keesha ASSISTANT PROFESSOR OF NURSING Unavailable Unavailable Rivera, Andreea Keesha ASSISTANT PROFESSOR OF NURSING Unavailable Unavailable Rivera, Andreea Keesha ASSISTANT PROFESSOR OF NURSING Unavailable Unavailable Rivera, Andreea Keesha ASSISTANT PROFESSOR OF NURSING Unavailable Unavailable Rivera, Andreea Keesha ASSISTANT PROFESSOR OF NURSING Unavailable Unavailable Andreea Riverassica ASSISTANT PROFESSOR OF NURSING Unavailable Unavailable Sophie Gomez MD Unavailable Unavailable [...] Anselmo Agrawal MD Unavailable Unavailable Mg, Vicki AGRICULTURAL EXTENSION OFFICER Unavailable Unavailable Mg, Vicki AGRICULTURAL EXTENSION OFFICER Unavailable Unavailable Mg, Vicki AGRICULTURAL EXTENSION OFFICER Unavailable Unavailable Mg, Vicki AGRICULTURAL EXTENSION OFFICER Unavailable Unavailable Mg, Vicki AGRICULTURAL EXTENSION OFFICER Unavailable Unavailable Mg, Vicki AGRICULTURAL EXTENSION OFFICER Unavailable Unavailable Mg, Vicki AGRICULTURAL EXTENSION OFFICER Unavailable Unavailable Mg, Vicki AGRICULTURAL EXTENSION OFFICER Unavailable Unavailable Mg, Vicki AGRICULTURAL EXTENSION OFFICER Unavailable Unavailable Mg, Vicki AGRICULTURAL EXTENSION OFFICER Unavailable Unavailable Mg, Vicki AGRICULTURAL EXTENSION OFFICER Unavailable Unavailable Alma II, Car PA Unavailable [...] is protected by Article 27-F of the [facility] Public Health law. If you continue you may have access to information: Regarding HIV / AIDS; Provided by facilities licensed or operated by the [facility] Office of Mental Health; or Provided by the [facility] Office for People With Developmental Disabilities. If such information is present, then the following [facility] mandated warning applies: This information has [...] law may result in a fine or long term sentence or both. A general authorization for the release of medical or other information is NOT sufficient authorization for further disc losure. Allergies and Adverse Reactions Type Description Substance Reaction Status Data Source(s ) Propensity to adverse reactions seasonal Propensity to ad verse reactions Unknown Active eCW1 ([facility]) Propensity to adverse reactions seasonal Propensity to ad verse reactions Unknown Active eCW1 ([facility]) Propensity to adverse reactions seasonal Propensity to ad verse reactions Unknown Active eCW1 ([facility]) Propensity to adverse reactions seasonal Propensity to ad verse reactions Unknown Active eCW1 ([facility]) Propensity to adverse reactions seasonal Propensity to ad verse reactions Unknown Active eCW1 ([facility]) Propensity to adverse reactions seasonal Propensity to ad verse reactions Unknown Active eCW1 ([facility]) Family History Family Member Name Family Member Gender Family Member Status Date o f Status Description Data Source(s) Unknown Female Diagnosis 07/09/2018 12:00:00 AM EDT NextGen ([facility]) Unknown Female Diagnosis 07/22/2013 12:00:00 AM EST NextGen ([facility]) Unknown Male Problem MEDENT ([facility]) Unknown Unknown Problem MEDENT ([facility]) Unknown Unknown Problem MEDENT ([facility]) Encounters Encounter Providers Location Date Indications Data Source(s ) Outpatient Attender: Vicki fitzpatrick 08/27/2020 04:50:00 PM EST MEDENT ([facility]) Unknown [address] [facility] [place] [address] 08/26/2020 12:00:00 AM EST eCW1 ([facility]) Unknown [address] [facility] [place] [address] 07/31/2020 12:00:00 AM EST eCW1 ([facility] [place]) [place] [address] [facility] [place] [address] 07/29/2020 12:00:00 AM EST eCW1 ([facility] [place]) (WC PO) [facility] [address] [place] [address] 07/16/2020 12:00:00 AM EST eCW1 ([facility] [place]) Outpatient [address] [facility] [place] [address] 06/25/2020 12:00:00 AM EDT eCW1 ([facility] [place]) Outpatient [address] [facility] [place] [address] 06/12/2020 12:00:00 AM EDT eCW1 ([facility] [place]) Outpatient Attender: Suresh MOULTON 06/09/2020 08:32:00 AM EDT [facility] Outpatient Attender: Suresh Gomez MD 06/08/2020 01:13:02 PM EDT [facility] Outpatient Attender: Suresh MOULTON 06/08/2020 01:13:01 PM EDT [facility] Outpatient Attender: Suresh MOULTON 06/08/2020 12:14:03 PM EDT [facility] Outpatient Attender: Suresh MOULTON 06/08/2020 12:14:01 PM EDT [facility] Outpatient Attender: Car Agrawal MDAdmitter: Car Agrawal MD E [email or web address] 05/08/2020 12:51:59 PM EDT [facility] Pre Test Counseling Attender: Keesha Rivera ASSISTANT PROFESSOR OF NURSING [facility] 05/07/2020 01:30:00 PM EDT - 05/07/2020 01:30:00 PM EDT Other specified noninflammatory disorders of vaginaEncntr for glue bone drier exam (general) (routine) w/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Encounter for oth general cnsl and advice on contraceptionOther sex counselingHuman immunodeficiency virus [HIV] counselingEncounter for screening for human immunodeficiency virus NextGen ([facility]) Other specified noninflammatory disorder s of vagina Encntr for glue bone drier exam (general) (routine) w/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 Encounter for oth general cnsl and advic e on contraception Other sex counseling Human immunodeficiency virus [HIV] couns eling Encounter for screening for human immuno deficiency virus [facility] D[facility] [address] [place] [address] 02/26/2020 12:00:00 AM EDT eCW1 ([facility]) Outpatient Attender: Suresh MOULTON 02/18/2020 07:51:46 PM EDT [facility] Outpatient Attender: Car Lee/[place]/Jasmeet/Rein dl 02/18/2020 08:45:00 AM EDT MEDENT ([facility]) Outpatient Attender: Suresh MOULTON 02/08/2020 12:16:13 AM EDT [facility] Outpatient Attender: Suresh MOULTON 01/31/2020 08:16:01 AM EDT [facility] Outpatient Attender: Suresh MOULTON 01/27/2020 01:23:01 PM EDT [facility] Dermat[facility] [address] [place] [address] 01/20/2020 12:00:00 AM EDT eCW1 ([facility]) HCS Pre Test Counseling Attender: Keesha HEATH [facility] [place] 01/17/2020 08:45:00 AM EDT - 01/17/2020 08:45:00 AM EDT Other specified noninflammatory disorders of vaginaEncounter for oth general cnsl and advice on contraceptionOther sex counselingHuman immunodeficiency virus [HIV] counselingEncounter for screening for human immunodeficiency virus NextGen ([facility]) Other specified noninflammatory disorder s of vagina Encounter for oth general cnsl and advic e on contraception Other sex counseling Human immunodeficiency virus [HIV] couns eling Encounter for screening for human immuno deficiency virus Outpatient Attender: Suresh MOULTON 01/14/2020 02:04:02 PM EDT [facility] Outpatient Attender: Suresh MOULTON 01/14/2020 01:38:01 PM EDT [facility] Outpatient Attender: Car Lee/[place]/Jasmeet/Rein dl 01/14/2020 08:45:00 AM EDT MEDENT ([facility] Dermatology [address] [place] [address] 01/14/2020 12:00:00 AM EDT eCW1 ([facility]) Outpatient Attender: Suresh Gomez MD FP 01/13/2020 03:29:01 PM EDT [facility] Outpatient Attender: Suresh Gomez MD FP 01/13/2020 02:30:01 PM EDT [facility] Outpatient Attender: Suresh Gomez MD FP 01/07/2020 12:06:01 PM EDT [facility] Outpatient Attender: Suresh Gomez MD FP 01/06/2020 04:48:01 PM EDT [facility] Outpatient Attender: Suresh Gomez MD FP 12/30/2019 09:01:05 PM EDT [facility] Outpatient Attender: Suresh Gomez MD FP 12/30/2019 10:49:00 AM EDT [facility]at[facility] [address] [place] [address] 12/30/2019 12:00:00 AM EDT eCW1 ([facility]) Outpatient Attender: Suresh Gomez MD FP 12/26/2019 01:30:00 PM EDT [facility] Outpatient Attender: Suresh Gomez MD FP 12/04/2019 10:42:01 AM EDT [facility] Outpatient Attender: Suresh Gomez MD FP 11/28/2019 09:01:06 PM EDT [facility] Outpatient Attender: Suresh Gomez MD FP 11/28/2019 02:14:02 PM EDT [facility] Outpatient Attender: Suresh Gomez MD FP 11/28/2019 02:13:00 PM EDT [facility] Outpatient Attender: Suresh Gomez MD FP 11/28/2019 12:40:45 PM EDT [facility] 11/26/2019 10:03:00 AM EDT [facility] Outpatient Attender: Suresh Gomez MD FP 11/21/2019 11:20:04 AM EDT [facility] Outpatient Attender: Suresh Gomez MD FP 11/15/2019 08:02:59 PM EST [facility] Outpatient Attender: Suresh Gomez MD FP 11/06/2019 09:01:06 PM EST [facility] Outpatient Attender: Suresh Gomez MD FP 11/06/2019 08:52:02 AM [facility] Outpatient Attender: Suresh Gomez MD FP 11/06/2019 08:52:01 AM [facility] Outpatient Attender: Suresh Gomez MD FP 11/06/2019 08:51:03 AM [facility] Outpatient Attender: Suresh Gomez MD FP 11/06/2019 08:50:01 AM [facility] Outpatient Attender: Suresh Gomez MD FP 11/06/2019 08:23:01 AM [facility] Outpatient Attender: Suresh Gomez MD FP 11/06/2019 08:21:00 AM [facility] Outpatient Attender: Suresh Gomez MD FP 11/04/2019 02:15:01 PM [facility] Outpatient Attender: Suresh Gomez MD FP 11/02/2019 09:55:59 AM [facility] Outpatient Attender: Suresh Gomez MD FP 11/01/2019 10:38:00 AM [facility] Outpatient Attender: Suresh Gomez MD FP 10/29/2019 02:56:01 PM [facility] Outpatient Attender: Suresh Gomez MD 10/29/2019 10:44:03 AM [facility] Outpatient Attender: Suresh Gomez MD 10/28/2019 11:04:00 AM [facility] Attender: Keesha Rivera ASSISTANT PROFESSOR OF NURSING [facility] [place] 10/11/2019 02:15:00 PM EST - 10/11/2019 02:15:00 PM [facility] Acute vaginitisEncounter for oth general cnsl and advice on contraceptionOther sex counselingHuman immunodeficiency virus [HIV] counselingEncounter for screening for human immunodeficiency virus NextGen ([facility]) Acute vaginitis Encounter for oth general cnsl and advic e on contraception Other sex counseling Human immunodeficiency virus [HIV] couns eli Encounter for screening for human immuno deficiency virus Outpatient Attender: Suresh Gomez MD FP 09/17/2019 10:35:01 AM [facility] Medications Medication Brand Name Start Date Product Form Dose Route Admi nistrative Instructions Pharmacy Instructions Status Indications Reaction Description Data Source(s) 10 mEq 10/25/2020 12:00:00 AM EST tablet,ER particles/cry stals 14 TAKE ONE TABLET BY MOUTH TWICE A DAY TAKE ONE TABLET BY MOUTH TWICE A DAY SOLD: 10/25/2020 [facility] pantoprazole 40 MG Delayed Release Oral Tablet PANTOPRAZOLE SODIUM 10/25/2020 12:00:00 AM EST tablet,delayed release (DR/EC) 30 T CLEMENT ONE TABLET BY MOUTH EVERY DAY TAKE ONE TABLET BY MOUTH EVERY DAY SOLD: 10/25/2020 [facility] 1 gram 10/25/2020 12:00:00 AM EST tablet 120 TAKE ONE TABLET BY MOUTH FOUR TIMES A DAY TAKE ONE TABLET BY MOUTH FOUR TIMES A DAY SOLD: 10/25/2020 [facility] 5 mg 08/14/2020 12:00:00 AM EST tablet 30 TAKE ONE TABLET BY MOUTH EVERY DAY TAKE ONE TABLET BY MOUTH EVERY DAY SOLD: 08/15/2020 [facility] 50 mcg/actuation 08/14/2020 12:00:00 AM EST spray,suspension 16 SPRAY TWO SPRAYS IN EACH NOSTRIL TWICE A DAY FOR 10 DAYS SPRAY TWO SPRAYS IN EACH NOSTRIL TWICE A DAY FOR 10 DAYS SOLD: 08/15/2020 [facility] 875 mg 07/23/2020 12:00:00 AM EST tablet 14 TAKE ONE TABLET BY MOUTH EVERY 12 HOURS FOR 7 DAYS TAKE ONE TABLET BY MOUTH EVERY 12 HOURS FOR 7 DAYS JOHN [facility] 150 mg 07/23/2020 12:00:00 AM EST tablet 2 TAKE 1 TABLET BY MOUTH ONCE AND 2ND TABLET IN 48 HOURS TAKE 1 TABLET BY MOUTH ONCE AND 2ND TABLET IN 48 HOURS SOLD: 07/23/2020 [facility] 5-325 mg 07/01/2020 12:00:00 AM [...] EVERY 6-8 HOURS SOLD: 04/25/2020 [facility] 7.5-325 mg/15 mL 03/26/2020 12:00:00 AM EDT solution 300 TAKE 15ML BY MOUTH EVERY 6 HOURS NEEDED FOR PAIN MAXIMUM DAILY DOSE = 60ML TAKE 15ML BY MOUTH EVERY 6 HOURS NEEDED FOR PAIN MAXIMUM DAILY DOSE = 60ML SOLD: 03/26/2020 [facility] Ibuprofen 20 MG/ML Oral Suspension Ibuprofen 03/26/2020 12:00:00 AM EDT ORAL active MEDENT ([facility], ) Acetaminophen 21.7 MG/ML / Hydrocodone Bitartrate 0.5 MG/ML Oral Solution Hydrocodone Bitartrate/Acetaminophen 03/26/2020 12:00:00 AM EDT ORAL active MEDENT ([facility], ) 100 mg/5 mL 03/26/2020 12:00:00 AM EDT suspension 946 TAKE 20ML BY MOUTH EVERY 6 HOURS NEEDED TAKE 20ML BY MOUTH EVERY 6 HOURS NEEDED SOLD: 03/26/2020 [facility] 1-0.05 % 01/15/2020 12:00:00 AM EDT cream 45 APPLY TO AFFECTED AREA(S) TWO TIMES A DAY ON SCALP WITH HAIR LOSS APPLY TO AFFECTED AREA(S) TWO TIMES A DA Y ON SCALP WITH HAIR LOSS SOLD: 01/15/2020 [facility] Betamethasone 0.5 MG/ML / Clotrimazole 1 0 MG/ML Topical Cream Clotrimazole- Betamethasone 1-0.05 % Clotrimazole-Betamethasone 1-0.05 % 01/14/2020 12:00:0 0 AM EDT active 1 application eCW 1 ([facility]) 4 mg 01/10/2020 12:00:00 AM EDT tablet,disintegrating [...] TWELVE HOURS FOR 7 DAYS SOLD: 12/21/2019 [facility] Ketoconazole 20 MG/ML Medicated Shampoo KETOCONAZOLE 11/28/19 20 12:00:00 AM EDT shampoo 120 APPLY TO SCALP EVERY 2-3 DAYS WHEN BATHING, LET SIT FOR 3 MINUTES , THEN RINSE WELL APPLY TO SCALP EVERY 2-3 DAYS WHEN BATHI NG, LET SIT FOR 3 MINUTES , THEN RINSE WELL SOLD: 11/28/2019 [facility] 0.75 % 10/11/2019 12:00:00 AM EST gel 70 1 APPLICATORFUL INTRAVAGINALLY EVERY NIGHT FOR 5 DAYS 1 APPLICATORFUL INTRAVAGINALLY EVERY NIGHT FOR 5 DAYS SOLD: 10/11/2019 [facility] 25 mg 08/31/2019 12:00:00 AM EST tablet 30 TAKE ONE TABLET BY MOUTH EVERY DAY TAKE ONE TABLET BY MOUTH EVERY DAY SOLD: 10/02/2019 [facility] 25 mg 08/31/2019 12:00:00 AM EST tablet 30 TAKE ONE TABLET BY MOUTH EVERY DAY TAKE ONE TABLET BY MOUTH EVERY DAY SOLD: 08/31/2019 [facility] Insurance Providers Payer name Policy type / Coverage type Policy ID Covered alliance party ID Covered alliance party's relationship to keane Policy Keane Plan Information [place] 302/307 [id number] SP [id number] [facility] PPO 306 [id number] SP [id number] SELF PAY SELF PAY ONLY [id number] SP [id number] [place] PPO 302/307 [id number] SP [id number] [place] 306/806 [id number] SP [id number] EXCELLUS BCBS B [id number] S VYS [id number] OTHER WORKERS COMPENSATION INSURANCE COVID-19 COVID Hannah C OVID EXCELLUS BCBS [id number] Hannah VYS [id number] Excellus BCBS P [id number] S VYS [id number] EXCELLUS BC-BS PPO [id number] SP [id number] [place] PPO 302/307 [id number] SP [id number] [place] 306/806 [id number] SP [id number] BC[place] 306/806 [id number] SP [id number] UNHC COMMUNITY PLAN MCDO [id number] SP [id number] Managed Care - [facility] Community Plan P [id number] S [id number] Medicaid S [id number] S [id number] [facility] Community Plan Commercial [id number] Self [id number] PMA MANAGEMENT [facility] [id number] SP [id number] Managed Care - Community Plan United Healthcare P [id number] S [id number] Managed Care - Community Plan United Healthcare P [id number] S [id number] United Healthcare Essential Plan P [id number] S [id number] United Healthcare [facility] Medigap Part B [id number] Self [id number] Health Net Fed Standard Health Maintenance Organization (HMO ) [id number] United Healthcare Essential Plan P [id number] S [id number] United Healthcare [facility] Medigap Part B [id number] Self [id number] Health Net Fed Standard Health Maintenance Organization (HMO ) [id number] UNHC COMMUNITY PLAN MCDHMO [id number] SP [id number] HC COMMUNITY PLAN MCDHMO [id number] SP [id number] UNITED HEALTHCARE(MCAID) O [id number] S [id number] United Healthcare Essential Plan P [id number] S [id number] UNHC COMMUNITY PLAN MCDHMO [id number] SP [id number] Managed Care - United HealthCare P [id number] S [id number] United CR/Community Julia Health Maintenance Organization (HMO) [id number] Self [id number] Managed Care - United HealthCare P [id number] S [id number] United Healthcare [place]/MCR Medigap Part B [id number] Self [id number] Health Net Fed Standard Health Maintenance Organization (HMO ) [id number] [facility](MCAID) O [id number] S [id number] UNHC COMMUNITY PLAN MCDHMO [id number] SP [id number] United Healthcare Oumou/MCR Medigap Part B [id number] Self [id number] Health Net Fed Standard Health Maintenance Organization (HMO ) [id number] Managed Care - United HealthCare P [id number] S [id number] [facility] Oumou/MCR Medigap Part B [id number] Self [id number] Health Net Fed Standard Health Maintenance Organization (HMO ) [id number] United Healthcare Oumou/MCR Medigap Part B [id number] Self [id number] Health Net Fed Standard Health Maintenance Organization (HMO ) [id number] United Healthcare Oumou/MCR Medigap Part B [id number] Self [id number] Health Net Fed Standard Health Maintenance Organization (HMO ) [id number] United Healthcare Oumou/MCR Medigap Part B [id number] Self [id number] Health Net Fed Standard Health Maintenance Organization (HMO ) [id number] [facility] COMMUNITY PLAN [facility] [id number] [facility] [id number] MEDICAID [id number] SP [id number] Medicaid [place] Medigap Part B Self Health Net Federal [facility] Commercial [facility] INN [id number] SP [id number] MEDICAID - CLINIC [id number] REGIONAL CLAIMS [facility] [id number] Problems, Conditions, and Diagnoses Code Display Name Description Problem Type Effective Dates Data Source(s) N94.89 Pelvic congestion syndrome Pelvic congestion syndrome Problem 08/19/2020 12:00:00 AM [place] [address] ([facility]) H70.001 Acute mastoiditis without complications, right ear Acute mastoiditis without complications, right ear 01/07/2020 12:04:54 PM EDT [facility] L70.0 [id number] Acne vulgaris Problem 12/30/2019 12:00:00 AM EDT [facility] ([facility]) L70.0 [id number] Acne vulgaris Problem 12/30/2019 12:00:00 AM EDT [facility] ([facility]) [id number] Seborrhea capitis Seborrhea capitis 11/28/2019 02:12:10 PM EDT [facility] 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 STI / H 05/07/2020 12:00:00 AM EDT - 05/07/2020 12:00:00 AM EDT [facility] ([facility]) CVR Credit Manager.Svc. Other 05/07/2020 12:00:00 AM EDT - 2019 12:00:00 AM EDT [facility] ([facility]) CVR Credit Manager.Svc. Contraceptive 05/07/2020 12 :00:00 AM EDT - 05/07/2020 12:00:00 AM EDT [facility] ([facility]) CVR Med.Svc. Vaginitis Rx 05/07/2020 12: 00:00 AM EDT - 05/07/2020 12:00:00 AM EDT [facility] ([facility]) CVR Med.Svc. Extremities 05/07/2020 12:0 0:00 AM EDT - 05/07/2020 12:00:00 AM EDT [facility] ([facility]) CVR Med.Svc. Abdominal Palp. 05/07/2020 12:00:00 AM EDT - 05/07/2020 12:00:00 AM EDT [facility] ([facility]) CVR Med.Svc. Heart/Lung Ausc. 05/07/2020 12:00:00 AM EDT - 05/07/2020 12:00:00 AM EDT [facility] ([facility]) CVR Med.Svc. Thyroid Palp. 05/07/2020 12 :00:00 AM EDT - 05/07/2020 12:00:00 AM EDT [facility] ([facility]) CVR Med.Svc. Height/Weight 05/07/2020 12 :00:00 AM EDT - 05/07/2020 12:00:00 AM EDT [facility] ([facility]) CVR Blood Pressure 05/07/2020 12:00:00 AM EDT - 2019 12:00:00 AM EDT [facility] ([facility]) CVR Med.Svc. Other 05/07/2020 12:00:00 AM EDT - 2019 12:00:00 AM EDT [facility] ([facility]) SMEAR, WET MOUNT, SALINE/INK 05/07/2020 12:00:00 AM EDT - 05/07/2020 12:00:00 AM EDT [facility] ([facility]) ASSAY OF BODY FLUID ACIDITY 05/07/2020 1 2:00:00 AM EDT - 05/07/2020 12:00:00 AM EDT [facility]Gen ([facility]) PREV VISIT, EST, AGE 18-39 05/07/2020 12 :00:00 AM EDT - 05/07/2020 12:00:00 AM EDT [facility] ([facility]) HCS Pre Test Counseling 05/07/2020 12:00 :00 AM EDT - 05/07/2020 12:00:00 AM EDT [facility] ([facility]) HIV-1/HIV-2, SINGLE ASSAY 05/07/2020 12: 00:00 AM EDT - 05/07/2020 12:00:00 AM EDT [facility]Gen ([facility]) Injection, triamcinolone acetonide, not otherwise specified , 10 mg 01/20/2020 12:00:00 AM EDT eC1 ([facility]) INJECT SKIN LESIONS </W 7 01/20/2020 12:00:00 AM EDT [facility] ([facility]) CVR Credit Manager.Svc. STI / H 01/17/2020 12:00:00 AM EDT - 01/17/2020 12:00:00 AM EDT [facility]Gen ([facility]) CVR Credit Manager.Svc. Other 01/17/2020 12:00:00 AM EDT - 2019 12:00:00 AM EDT NextGen ([facility]) CVR Credit Manager.Svc. Contraceptive 01/17/2020 12 :00:00 AM EDT - 01/17/2020 12:00:00 AM EDT NextGen ([facility]) CVR Med.Svc. Height/Weight 01/17/2020 12 :00:00 AM EDT - 01/17/2020 12:00:00 AM EDT [facility] ([facility]) CVR Blood Pressure 01/17/2020 12:00:00 AM EDT - 2019 12:00:00 AM EDT NextGen ([facility]) CVR Med.Svc. Other 01/17/2020 12:00:00 AM EDT - 2019 12:00:00 AM EDT [facility] ([facility]) SMEAR, WET MOUNT, SALINE/INK 01/17/2020 12:00:00 AM EDT - 01/17/2020 12:00:00 AM EDT [facility] ([facility]) ASSAY OF BODY FLUID ACIDITY 01/17/2020 1 2:00:00 AM EDT - 01/17/2020 12:00:00 AM EDT NextGen ([facility]) OFFICE VISIT, EST 01/17/2020 12:00:00 AM EDT - 020 12:00:00 AM EDT [facility] ([facility] [facility]) HCS Pre Test Counseling 01/17/2020 12:00 :00 AM EDT - 01/17/2020 12:00:00 AM EDT [facility] ([facility]) HIV-1/HIV-2, SINGLE ASSAY 01/17/2020 12: 00:00 AM EDT - 01/17/2020 12:00:00 AM EDT [facility] ([facility]) TANGNTL BX SKIN SINGLE LES 12/30/2019 12:00:00 AM EDT eCW1 ([facility]) Results ID Date Data Source 0510/14/2020 12:00:00 AM EST [facility] Name Value Range Interpretation Code Description Data Cassy rce(s) Supporting Document(s) SARS-CoV2 Rapid Antigen Negative [facility] This lab was ordered by [facility] and reported by [facility]. ID Date Data Source [id number] 09/08/2020 10:35:00 AM EST [facility] Name Value Range Interpretation Code Description Data Cassy rce(s) Supporting Document(s) SARS coronavirus 2 RNA [facility] This lab was ordered by [facility] and reported by [facility]. ID Date Data Source [id number] 08/27/2020 12:00:00 AM EST [facility] Name Value Range Interpretation Code Description Data Cassy rce(s) Supporting Document(s) SARS coronavirus 2 Ag [facility] This lab was ordered by [facility] and reported by [facility]. ID Date Data Source [id number] 07/21/2020 12:00:00 AM EST [facility] Name Value Range Interpretation Code Description Data Cassy rce(s) Supporting Document(s) 2019-nCoV RNA XXX CHASIDY+probe-Imp [facility] This lab was ordered by [facility] and reported by [facility]. ID Date Data Source [id number] 06/26/2020 10:00:00 AM EDT [facility] Name Value Range Interpretation Code Description Data Cassy rce(s) Supporting Document(s) SARS coronavirus 2 RNA [facility] This lab was ordered by [facility] and reported by [facility]. ID Date Data Source [id number] 06/08/2020 11:56:00 AM EDT [facility] Name Value Range Interpretation Code Description Data Cassy rce(s) Supporting Document(s) BG FASTING 86 mg/dL 70-100 N [facility] y Health ID Date Data Source [id number] 06/08/2020 11:56:00 AM EDT [facility] Name Value Range Interpretation Code Description Data Cassy rce(s) Supporting Document(s) HCT 41.1 % 36.0-47.0 N [facility] HGB 14.1 g/dL 12.0-15.5 N [facility] MCH 34.3 G/DL pg 32.0-36.5 N [facility] Health MCHC 30.6 PG % 27.0-33.0 N [facility] PLATELETS 393 10 10*3/mm3 150-450 N [facility] RBC 4.61 10 10*6/mm3 4.00-5.40 N [facility] RDW 12.9 % 11.5-14.5 N [facility] WBC TOTAL 10.5 4.0-10.0 H [facility] ID Date Data Source [id number] 05/07/2020 01:59:28 PM EDT [facility] ([facility]) Name Value Range Interpretation Code Description Data Cassy rce(s) Supporting Document(s) Hyphae/Erlinda: no; Budding yeast: no; Trich: no; Clue cells: yes (>=20%); WBCs: no; Amine/Whiff test: negative; pH: 4.5 Abnormal (applies to non-numeric results) Wet Prep [facility] ([facility]) ID Date Data Source [id number] 05/07/2020 01:59:08 PM EDT [facility] ([facility]) Name Value Range Interpretation Code Description Data Cassy rce(s) Supporting Document(s) pH: 4.5. Vaginal pH [facility] ([facility] ID Date Data Source [id number] 05/07/2020 01:31:45 PM EDT [facility] ([facility]) Name Value Range Interpretation Code Description Data Cassy rce(s) Supporting Document(s) Non-Reactive (Negative); Lot : [id number]; Exp: 08/13/2020; Start time: 1:29 PM; Completed time: 1:31 PM Rapid HIV Next Gen ([facility]) ID Date Data Source [id number] 03/26/2020 12:09:00 PM EDT MEDENT ([facility], ) Name Value Range Interpretation Code Description Data Cassy rce(s) Supporting Document(s) Surgical pathology study Laboratory test result [facility], ) FINAL [...] x 1.0 cm. Specimen is unremar kable. [employer] Worker sections are submitted in one. B - Received in formalin labeled "left tonsil" consists of a tonsil, 3 x 1.3 x 1.0 cm. The specimen is grossly u nremarkable. [employer] Worker sections are submitted in one. -OA 03/26/2020 - 1604 Signed MAXI PANTOJA MD 03/27/2020 1143 ID Date Data Source [id number] 03/21/2020 10:30:00 AM EDT [facility] Name Value Range Interpretation Code Description Data Cassy rce(s) Supporting Document(s) SARS coronavirus 2 RNA [facility] This lab was ordered by [facility] and reported by [facility]. ID Date Data Source [id number] 01/31/2020 08:07:04 AM EDT [facility] Measurements & CalculationsWeight: 267 pounds 121.36 kg Vital SignsPulse Rate: 66 beats/minuteBlood Pressure: 128/86 Vital Signs performed by: Leo Schwartz MA, January 31, 2020 8:08 AM Name Value Range Interpretation Code Description Data Cassy rce(s) Supporting Document(s) ID Date Data Source [id number] 01/17/2020 09:34:48 AM EDT [facility] Name Value Range Interpretation Code Description Data Cassy rce(s) Supporting Document(s) NegativeHyphae/Erlinda: noB udding yeast: noTrich: noClue cells: noWBCs: noAmine/Whiff test: negativepH: 4.5 Wet [facility] ([facility]) ID Date Data Source [id number] 01/17/2020 09:34:30 AM EDT [facility] ([facility]) Name Value Range Interpretation Code Description Data Cassy rce(s) Supporting Document(s) pH: 4.5. Vaginal pH [facility] ([facility] ID Date Data Source [id number] 01/17/2020 08:58:56 AM EDT [facility] ([facility]) Name Value Range Interpretation Code Description Data Cassy rce(s) Supporting Document(s) Non-Reactive (Negative)Lot: [id number]: 05/14/2020Test date: 01/17/2020Start time: 8:55 AMCompleted time: 8:58 AM Rapid HIV [facility] ([facility]) ID Date Data Source [id number] 01/07/2020 11:33:05 AM EDT [facility] Measurements & CalculationsHeight: 66 inches 167.64 [...] DERMATOLOGYHave you seen a [facility]? [facility] reported today: [facility]2018Intake performed by: [...] DONE LAST WEEKPain AssessmentPain ScaleNumeric Rating Scale: 7 / 10Location: neckOnset: 01/06/2020Character/Quality: aching, dull and stabbingIs the [...] scalp biopsy about 1 week ago, by [facility] dermatology. Pt is waiting for biopsy results, but states they don't think it is alopecia. They are thinking her hair loss is lupus. Transitions of Care InboundProblem ReviewProblem List was reviewed and/or updated during this visit.Medication Reconciliation & ReviewMedication List was reviewed and/or updated during this visit, including review of any mfjp-mdl-wbziihz medications, herbal therapies, and/or supplements.Allergy ReviewAllergy List [...] Problems:Added: Acute mastoiditis without complications, right ear (XGZ35-U83.001) Assessment: Instructions: Start antibotics as prescribed. Take [...] medication. Keep out of the reach of childrenER for worsening symptoms.Patient Instructions/Care Plan: Acute mastoiditis [...] medication. Keep out of the reach of childrenER for worsening symptoms. Plan developed in collaboration [...] (Critical)Orders:Adult - Ofc Vst, EST, Level II [CPT-29356] Follow-Up Return to clinic: as needed Clinical Visit Summary CompletedMedications:PERCOCET 5-325 MG ORAL TABLET (OXYCODONE- ACETAMINOPHEN) Take 1 tablet po q 6 hrs prn; MDD 4 tablets #12[Tablet] x 0 Route:ORAL Entered and Authorized by: Eduar ORTIZ Method used: Electronically to [facility] (retail) [address] [place] [address] Fax: Note to Pharmacy: Route: ORAL; RxID: [id number] 500 MG ORAL CAPSULE (CEPHALEXIN) Take 1 tablet po QID x 7 days #28[Capsule] x 0 Route:ORAL Entered and Authorized by: Eduar ORTIZ Method used: Electronically to [facility] (retail) [address] [place] [address] Fax: Note to Pharmacy: Route: ORAL; Indications: ACUTE MASTOIDITIS WITHOUT COMPLICATIONS, RIGHT EAR RxID: [id number] signed by Eduar ORTIZ on 01/14/2020 at 1:37 PM Name Value Range Interpretation Code Description Data Cassy rce(s) Supporting Document(s) ID Date Data Source [id number] 12/30/2019 11:01:43 AM EDT [facility] Initial Intake Information from: [facility] Complaintweight check for Dr WinstonMeasurements & CalculationsHeight: 66 [...] rce(s) Supporting Document(s) ID Date Data Source [id number] 12/13/2019 12:00:00 AM EDT [facility] Name Value Range Interpretation Code Description Data Cassy rce(s) Supporting Document(s) 2019-nCoV N XXX Ql CHASIDY N2 [facility] This lab was ordered by [facility] and reported by [facility]. ID Date Data Source [id number] 11/28/2019 01:31:42 PM EDT [facility] Measurements & CalculationsHeight: 66 inches (5 [...] (ER) or urgent care clinic? Yes - [facility] ConcussionEmergency room (ER) or urgent care date reported today: 11/16/2019Have you seen another healthcare provider? Yes - Dr Tish lainez, Have you seen a dentist? 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 Start Ketoconazole shampoo, instructed on how to use. Alternate days with normal shampoo. Avoid scratching as part of the alopecia may be mechanical shearing. Differential includes fungal versus atopic origin of scaling and itching.Seborrhea capitis (JLS45-U83.0) Assessment: Instructions: As above.Assessment not Saved Circumscribed alopecia areata of scalp (ARP37-I73.8): Comment OnlyInstructions: Referral to dermatology. Start Ketoconazole [...] Method: ElectronicAllergies:* POLLEN (Critical)* LATEX (Critical)Orders:Dermatology Consult [CPT-86707] Adult - Ofc Vst, EST, Level II [CPT-36722] Follow-Up Return to clinic: as needed Med ications:KETOCONAZOLE 2 % EXTERNAL SHAMPOO (KETOCONAZOLE) Apply to scalp every 2-3 days when bathing, let sit for 3 mins, then rinse well #4[Ounce] x 5 Route:EXTERNAL Entered and Authorized by: Eduar ORTIZ Method used: Electronically to [facility] (retail) [address] [place] [address] Fax: Note to Pharmacy: Route: EXTERNAL; Indications: CIRCUMSCRIBED ALOPECIA AREATA OF SCALP;SEBORRHEA CAPITIS RxID: [id number]] Name Value Range Interpretation Code Description Data Cassy rce(s) Supporting Document(s) ID Date Data Source [id number] 11/21/2019 08:41:50 AM EDT [facility] Measurements & CalculationsWeight: 269 pounds 4 oz. 122.39 kg Vital SignsPulse Rate: 73 beats/minuteBlood Pressure: 118/72 Vital Signs performed by: Leo Schwartz MA, November 21, 2019 8:58 AMAssessment & Plan Orders:[id number] Vst-Est Level I [CPT-15743] Labs In-House Blood TestsDate/Time Collected: November 21, 2019 8:42 AMTest Result Reference Range Normal ValueComments: blood draw done in office done in the right ac tolerated well Leo Efren JESSICA, November 21, 2019 8:42 AM _ Name Value Range Interpretation Code Description Data Cassy rce(s) Supporting Document(s) ID Date Data Source [id number] 11/06/2019 08:26:24 AM [facility] Measurements & CalculationsHeight: 66 inches (5 [...] healthcare provider? Yes - Dr. Venancio lainez Dr.ve you seen a dentist? Yes - [facility] [...] during this visit, including review of any erzp-vny-zxzhydk medications, herbal therapies, and/or supplements.Allergy ReviewAllergy List [...] FairAssessment & Plan Problems:Added: MORBID OBESITY (ICD-278.01) (RSO76-J10.01) Assessment: Instructions: Recommend healthy lifestyle modification. Encourage portion control, healthy food choices, and increasing routine physical activity. Recommendation is for 150 minutes throughout the week of cardiovascular exercise.BMI 40.0-44.9 (ICD-V85.41) (EKS96-Y07.41) Assessment: Instructions: Continue per Dr. Winston.Assessed:Essential (primary) hypertension (YGA14-H37) Assessment: Instructions: Continue current medication. Complete labs [...] (Critical)Orders:Adult - Ofc Vst, EST, Level II [CPT-00495] Follow-Up Return to clinic: in 90 days for preventive care visitAdditional Follow-Up: annual PE, HTNClinical Visit Summary Declined][Immunization Management] Name Value Range Interpretation Code Description Data Cassy rce(s) Supporting Document(s) Procedure Social History Code Duration Value Status Description Data Source(s ) Smoking 08/27/2020 12:00:00 AM EST Patient has never smoked co mpleted Patient has never smoked [facility]ENT ([facility]) Smoking 07/16/2020 12:00:00 AM EST Never Smoker completed Never S moker eCW1 ([facility]) Smoking 07/16/2020 12:00:00 AM EST Never Smoker completed Never S moker eCW1 ([facility]) Smoking 07/16/2020 12:00:00 AM EST Never Smoker completed Never S moker eCW1 ([facility]) Smoking 07/16/2020 12:00:00 AM EST Never Smoker completed Never S moker eCW1 ([facility]) Smoking 07/16/2020 12:00:00 AM EST Never Smoker completed Never S moker eCW1 ([facility]) Smoking 07/16/2020 12:00:00 AM EST Never Smoker completed Never S modominic eCW1 ([facility]) Smoking 05/07/2020 12:00:00 AM EDT Never smoker completed Never s modominic [facility] ([facility]) Vital Signs ID Date Data Source UNK Name Value Range Interpretation Code Description Data Source(s) Body temperature 98.6 [degF] 98.6 [degF] MEDENT ([facility], [facility]) Oxygen saturation in Arterial blood by Pulse oximetry 98 % 98 % [facility] ([facility], [facility]) Respiratory rate 14 /min 14 /min [facility] ( [facility], [facility]) Heart rate 82 /min 82 /min [facility]) Diastolic blood pressure 90 mm[Hg] 90 mm[Hg] MEDENT ([facility]) Systolic blood pressure 137 mm[Hg] 137 mm[Hg] M EDENT ([facility], [facility]) Body mass index (BMI) [Ratio] 40.8 kg/m2 40.8 k g/m2 MED[facility] ([facility], [facility]) Body height 66 [in_i] 66 [in_i] MEDENT ([facility]) 5'6" Body weight 253.00 [lb_av] 253.00 [lb_av] MEDEN T ([facility]) Diastolic blood pressure 78 mm[Hg] 78 mm[Hg] eCW1 ([facility]) Systolic blood pressure 132 mm[Hg] 132 mm[Hg] e CW1 ([facility]) Body mass index (BMI) [Ratio] 42.92 kg/m2 42.92 kg/m2 eCW1 ([facility]) Body height 66.5 [in_i] 66.5 [in_i] eCW1 ([facility]) Body weight 270 [lb_av] 270 [lb_av] eCW1 ([facility]) Diastolic blood pressure 76 mm[Hg] 76 mm[Hg] eCW1 ([facility]) Systolic blood pressure 122 mm[Hg] 122 mm[Hg] e CW1 ([facility]) Body mass index (BMI) [Ratio] 43.08 kg/m2 43.08 kg/m2 eCW1 ([facility]) Body height 66.5 [in_i] 66.5 [in_i] eCW1 ([facility]) Body weight 271 [lb_av] 271 [lb_av] eCW1 ([facility]) Diastolic blood pressure 86 mm[Hg] 86 mm[Hg] eCW1 ([facility]) Systolic blood pressure 136 mm[Hg] 136 mm[Hg] e CW1 ([facility]) Body mass index (BMI) [Ratio] 42.76 kg/m2 42.76 kg/m2 W1 ([facility]) Body height 66.5 [in_i] 66.5 [in_i] eCW1 ([facility]) Body weight 269 [lb_av] 269 [lb_av] eCW1 ([facility]) Body mass index (BMI) [Ratio] 43.45 kg/m2 Overweight 43.45 kg/m2 [facility] ([facility]) Diastolic blood pressure 80 mm[Hg] 80 mm[Hg] [facility] ([facility]) Systolic blood pressure 122 mm[Hg] 122 mm[Hg] N extGen ([facility]) Body weight 122.107 kg 122.107 kg [facility] ([facility]) Body height 167.64 cm 167.64 cm [facility] ([facility]) Body weight 115.214 kg 115.214 kg MEDENT ([facility], ) Body mass index (BMI) [Ratio] 41.0 kg/m2 41.0 k g/m2 MEDENT ([facility], ) Body weight 254.00 [lb_av] 254.00 [lb_av] MEDEN T ([facility], ) Body height 66 [in_i] 66 [in_i] MEDENT ([facility], ) 5'6" Diastolic blood pressure 86 mm[Hg] 86 mm[Hg] eCW1 ([facility]) Systolic blood pressure 124 mm[Hg] 124 mm[Hg] e CW1 ([facility]) Body mass index (BMI) [Ratio] 43.21 kg/m2 43.21 kg/m2 W1 ([facility]) Body height 66.5 [in_us] 66.5 [in_us] W1 ([facility]) Body weight Measured 271.8 [lb_av] 271.8 [lb_av ] [facility] ([facility]) Body mass index (BMI) [Ratio] 43.58 kg/m2 Overweight 43.58 kg/m2 [facility] ([facility]) Diastolic blood pressure 82 mm[Hg] 82 mm[Hg] Next[facility] ([facility]) Systolic blood pressure 132 mm[Hg] 132 mm[Hg] N extGen ([facility]) Body weight 122.470 kg 122.470 kg [facility] ([facility]) Body height 167.64 cm 167.64 cm [facility] ([facility]) Diastolic blood pressure 74 mm[Hg] 74 mm[Hg] eCW1 ([facility]) Systolic blood pressure 128 mm[Hg] 128 mm[Hg] e CW1 ([facility]) Body mass index (BMI) [Ratio] 42.84 kg/m2 42.84 kg/m2 [facility] ([facility]) Body height 66.5 [in_us] 66.5 [in_us] eCW1 ([facility]) Body weight Measured 269.5 [lb_av] 269.5 [lb_av ] W1 ([facility]) Body weight 115.214 kg 115.214 kg MEDENT ([facility], ) Body mass index (BMI) [Ratio] 41.0 kg/m2 41.0 k g/m2 MEDENT ([facility], ) Body weight 254.00 [lb_av] 254.00 [lb_av] MEDEN T ([facility] ) Body height 66 [in_i] 66 [in_i] MEDENT ([facility], ) 5'6" Diastolic blood pressure 78 mm[Hg] 78 mm[Hg] eCW1 ([facility]) Systolic blood pressure 138 mm[Hg] 138 mm[Hg] e CW1 ([facility]) Body mass index (BMI) [Ratio] 43.18 kg/m2 43.18 kg/m2 [facility] ([facility]) Body height 66.5 [in_us] 66.5 [in_us] W1 ([facility]) Body weight Measured 271.6 [lb_av] 271.6 [lb_av ] [facility] ([facility]) Patient Treatment Plan of Care Planned Activity Planned Date Details Description Data Source (s) Betamethasone 0.5 MG/ML / Clotrimazole 10 MG/ML Topica l Cream 01/14/2020 12:00:00 AM EDT [facility] ([facility])
--- OUTSIDE RECORDS SUMMARY | 2020-10-29 09:24 | CCD ---
Author Author [facility] Organization [facility] Address Unknown Phone Unavailable Care Team Providers Care Fisher Spear Name Role Phone Rivera, Andreea Keesha ACCOUNT DEVELOPMENT EXECUTIVE Unavailable Unavailable Rivera, Andreea Keesha ACCOUNT DEVELOPMENT EXECUTIVE Unavailable Unavailable Rivera, Andreea Keesha ACCOUNT DEVELOPMENT EXECUTIVE Unavailable Unavailable Rivera, Andreea Keesha ACCOUNT DEVELOPMENT EXECUTIVE Unavailable Unavailable Rivera, Andreea Keesha ACCOUNT DEVELOPMENT EXECUTIVE Unavailable Unavailable Andreea Riverassica ACCOUNT DEVELOPMENT EXECUTIVE Unavailable Unavailable Sophie Gomez MD Unavailable Unavailable [...] Unavailable Sophie Gomez MD Unavailable Unavailable Sophie Goemz MD Unavailable Unavailable Sophie Gomez MD Unavailable [...] Anselmo Agrawal MD Unavailable Unavailable Mg, Vicki DUST OPERATOR Unavailable Unavailable Mg, Vicki DUST OPERATOR Unavailable Unavailable Mg, Vicki DUST OPERATOR Unavailable Unavailable Mg, Vicki DUST OPERATOR Unavailable Unavailable Mg, Vicki DUST OPERATOR Unavailable Unavailable Mg, Vicki DUST OPERATOR Unavailable Unavailable Mg, Vicki DUST OPERATOR Unavailable Unavailable Mg, Vicki DUST OPERATOR Unavailable Unavailable Mg, Vicki DUST OPERATOR Unavailable Unavailable Mg, Vicki DUST OPERATOR Unavailable Unavailable Mg, Vicki DUST OPERATOR Unavailable Unavailable Alma II, Car PA Unavailable [...] is protected by Article 27-F of the [facility] Public Health law. If you continue you may have access to information: Regarding HIV / AIDS; Provided by facilities licensed or operated by the [facility] Office of Mental Health; or Provided by the [facility] Office for People With Developmental Disabilities. If such information is present, then the following [facility] mandated warning applies: This information has been [...] law may result in a fine or retirement sentence or both. A general authorization for the release of medical or other information is NOT sufficient authorization for further disc losure. Allergies and Adverse Reactions Type Description Substance Reaction Status Data Source(s ) Propensity to adverse reactions seasonal Propensity to ad verse reactions Unknown Active eCW1 ([facility], [facility]) Propensity to adverse reactions seasonal Propensity to ad verse reactions Unknown Active eCW1 ([facility], [facility]) Propensity to adverse reactions seasonal Propensity to ad verse reactions Unknown Active eCW1 ([facility], [facility]) Propensity to adverse reactions seasonal Propensity to ad verse reactions Unknown Active eCW1 ([facility], [facility]) Propensity to adverse reactions seasonal Propensity to ad verse reactions Unknown Active [facility] Propensity to adverse reactions seasonal Propensity to ad verse reactions Unknown Active eCW1 ([facility], [facility]) Family History Family Member Name Family Member Gender Family Member Status Date o f Status Description Data Source(s) Unknown Female Diagnosis 07/09/2018 12:00:00 AM EDT NextGen ([facility]) Unknown Female Diagnosis 07/22/2013 12:00:00 AM EST NextGen ([facility]) Unknown Male Problem MEDENT ([facility]) Unknown Unknown Problem MEDENT ([facility]) Unknown Unknown Problem MEDENT ([facility]) Encounters Encounter Providers Location Date Indications Data Source(s ) Outpatient Attender: Vicki fitzpatrick 08/27/2020 04:50:00 PM EST MEDENT ([facility] [place] [address] [facility] [address] 08/26/2020 12:00:00 AM EST eCW1 ([facility]) [place] [address] [facility] [address] 07/31/2020 12:00:00 AM EST eCW1 ([facility] [place]) [place] [address] [address] 07/29/2020 12:00:00 AM EST eCW1 ([facility] [place]) (WC PO) [facility]Center Post Op [address] [place] [address] 07/16/2020 12:00:00 AM EST eCW1 ([facility] [place]) [place] [address] [facility] [address] 06/25/2020 12:00:00 AM EDT [facility] [place] [place] [address] [facility] [address] 06/12/2020 12:00:00 AM EDT [facility]CW1 [facility] [place] Outpatient Attender: Suresh MOULTON 06/09/2020 08:32:00 AM EDT [facility] Outpatient Attender: Suresh Gomez MD 06/08/2020 01:13:02 PM EDT [facility] Outpatient Attender: Suresh MOULTON 06/08/2020 01:13:01 PM EDT [facility] Outpatient Attender: Suresh MOULTON 06/08/2020 12:14:03 PM EDT [facility] Outpatient Attender: Suresh MOULTON 06/08/2020 12:14:01 PM EDT [facility] Outpatient Attender: Car Agrawal MDAdmitter: Car Agrawal MD E [email or web address] 05/08/2020 12:51:59 PM EDT [facility] Pre Test Counseling Attender: Keesha Rivera ACCOUNT DEVELOPMENT EXECUTIVE [facility] 05/07/2020 01:30:00 PM EDT - 05/07/2020 01:30:00 PM EDT Other specified noninflammatory disorders of vaginaEncntr for wireless sales representative exam (general) (routine) w/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Encounter for oth general cnsl and advice on contraceptionOther sex counselingHuman immunodeficiency virus [HIV] counselingEncounter for screening for human immunodeficiency virus NextGen ([facility]) Other specified noninflammatory disorder s of vagina Encntr for wireless sales representative exam (general) (routine) w/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 Encounter for oth general cnsl and advic e on contraception Other sex counseling Human immunodeficiency virus [HIV] couns eling Encounter for screening for human immuno deficiency virus [facility] [address] [place] [address] 02/26/2020 12:00:00 AM EDT eCW1 ([facility], [facility]) Outpatient Attender: Suresh MOULTON 02/18/2020 07:51:46 PM EDT [facility] Outpatient Attender: Car [place]/Jasmeet/Rein dl 02/18/2020 08:45:00 AM EDT MEDENT ([facility]) Outpatient Attender: Suresh MOULTON 02/08/2020 12:16:13 AM EDT [facility] Outpatient Attender: Suresh MOULTON 01/31/2020 08:16:01 AM EDT [facility] Outpatient Attender: Suresh MOULTON 01/27/2020 01:23:01 PM EDT [facility] [address] [place] [address] 01/20/2020 12:00:00 AM EDT eCW1 ([facility], [facility]) HCS Pre Test Counseling Attender: Keesha HEATH [place] 01/17/2020 08:45:00 AM EDT - 01/17/2020 08:45:00 AM EDT Other specified noninflammatory disorders of vaginaEncounter for oth general cnsl and advice on contraceptionOther sex counselingHuman immunodeficiency virus [HIV] counselingEncounter for screening for human immunodeficiency virus NextGen ([facility]) Other specified noninflammatory disorder s of vagina Encounter for oth general cnsl and advic e on contraception Other sex counseling Human immunodeficiency virus [HIV] couns eling Encounter for screening for human immuno deficiency virus Outpatient Attender: Suresh MOULTON 01/14/2020 02:04:02 PM EDT [facility] Outpatient Attender: Suresh MOULTON 01/14/2020 01:38:01 PM EDT [facility] Outpatient Attender: Car Lee/[place]/Jasmeet/Rein dl 01/14/2020 08:45:00 AM EDT MEDENT ([facility] [address] [place] [address] 01/14/2020 12:00:00 AM EDT eCW1 ([facility], [facility]) Outpatient Attender: Suresh Gomez MD FP 01/13/2020 03:29:01 PM EDT [facility] Outpatient Attender: Suresh Gomez MD FP 01/13/2020 02:30:01 PM EDT [facility] Outpatient Attender: Suresh Gomez MD FP 01/07/2020 12:06:01 PM EDT [facility] Outpatient Attender: Suresh Gomez MD FP 01/06/2020 04:48:01 PM EDT [facility] Outpatient Attender: Suresh Gomez MD FP 12/30/2019 09:01:05 PM EDT [facility] Outpatient Attender: Suresh Gomez MD FP 12/30/2019 10:49:00 AM EDT [facility] [address] [place] [address] 12/30/2019 12:00:00 AM EDT eCW1 ([facility], [facility]) Outpatient Attender: Suresh Gomez MD FP 12/26/2019 01:30:00 PM EDT [facility] Outpatient Attender: Suresh Gomez MD FP 12/04/2019 10:42:01 AM EDT [facility] Outpatient Attender: Suresh Gomez MD FP 11/28/2019 09:01:06 PM EDT [facility] Outpatient Attender: Suresh Gomez MD FP 11/28/2019 02:14:02 PM EDT [facility] Outpatient Attender: Suresh Gomez MD FP 11/28/2019 02:13:00 PM EDT [facility] Outpatient Attender: Suresh Gomez MD FP 11/28/2019 12:40:45 PM EDT [facility] 11/26/2019 10:03:00 AM EDT [facility] Outpatient Attender: Suresh Gomez MD FP 11/21/2019 11:20:04 AM EDT [facility] Outpatient Attender: Suresh Gomez MD FP 11/15/2019 08:02:59 PM EST [facility] Outpatient Attender: Suresh Gomez MD FP 11/06/2019 09:01:06 PM EST [facility] Outpatient Attender: Suresh Gomez MD FP 11/06/2019 08:52:02 AM [facility]patient Attender: Suresh Gomez MD FP 11/06/2019 08:52:01 AM [facility] Outpatient Attender: Suresh Gomez MD FP 11/06/2019 08:51:03 AM [facility] Outpatient Attender: Suresh Gomez MD FP 11/06/2019 08:50:01 AM [facility] Outpatient Attender: Suresh Gomez MD FP 11/06/2019 08:23:01 AM [facility] Outpatient Attender: Suresh Gomez MD FP 11/06/2019 08:21:00 AM [facility] Outpatient Attender: Suresh Gomez MD FP 11/04/2019 02:15:01 PM [facility] Outpatient Attender: Suresh Gomez MD FP 11/02/2019 09:55:59 AM [facility] Outpatient Attender: Suresh Gomez MD FP 11/01/2019 10:38:00 AM [facility] Outpatient Attender: Suresh Gomez MD FP 10/29/2019 02:56:01 PM [facility] Outpatient Attender: Suresh Gomez MD 10/29/2019 10:44:03 AM [facility] Outpatient Attender: Suresh Gomez MD 10/28/2019 11:04:00 AM [facility] Attender: Keesha Rivera ACCOUNT DEVELOPMENT EXECUTIVE [facility] 10/11/2019 02:15:00 PM EST - 10/11/2019 02:15:00 PM [facility] Acute vaginitisEncounter for oth general cnsl and advice on contraceptionOther sex counselingHuman immunodeficiency virus [HIV] counselingEncounter for screening for human immunodeficiency virus NextGen ([facility]) Acute vaginitis Encounter for oth general cnsl and advic e on contraception Other sex counseling Human immunodeficiency virus [HIV] couns eli Encounter for screening for human immuno deficiency virus Outpatient Attender: Suresh Gomez MD FP 09/17/2019 10:35:01 AM [facility] Medications Medication Brand Name Start Date [...] 03/26/2020 12:00:00 AM EDT ORAL active MEDENT ([facility] ) Acetaminophen 21.7 MG/ML / Hydrocodone Bitartrate 0.5 MG/ML Oral Solution Hydrocodone Bitartrate/Acetaminophen 03/26/2020 12:00:00 AM EDT ORAL active MEDENT ([facility], ) 100 mg/5 mL 03/26/2020 12:00:00 AM [...] AM EDT active 1 application eCW 1 ([facility]) 4 mg 01/10/2020 12:00:00 AM EDT [...] type / Coverage type Policy ID Covered republican ID Covered republican's relationship to keane Policy Keane Plan Information [place] 302/307 [id number] SP [id number] [facility] PPO [id number] SP [id number] SELF PAY SELF PAY ONLY [id number] SP [id number] [place] PPO 302/307 [id number] SP [id number] [place]BS [place] 306/806 [id number] SP [id number] EXCELLUS BCBS B [id number] S VYS [id number] OTHER WORKERS COMPENSATION INSURANCE COVID-19 COVID Hannah C OVID EXCELLUS BCBS [id number] Hannah VYS [id number] Excellus BCBS P [id number] S VYS [id number] EXCELLUS BC-BS PPO [id number] SP [id number] [place] PPO 302/307 [id number] SP [id number] [place] 306/806 [id number] SP [id number] [place] 306/806 [id number] SP [id number] UNHC COMMUNITY PLAN MCDO [id number] SP [id number] Managed Care - [facility] Community Plan P [id number] S [id number] Medicaid S [id number] S [id number] [facility] Community Plan Commercial [id number] Self [id number] PMA MANAGEMENT [facility] [id number] SP [id number] Managed Care - Community Plan United Healthcare P [id number] S [id number] Managed Care - Community Plan United Healthcare P [id number] S [id number] United Healthcare Essential Plan P [id number] S [id number] United Healthcare [facility] Medigap Part B [id number] Self [id number] Health Net Fed Standard Health Maintenance Organization (HMO ) [id number] United Healthcare Essential Plan P [id number] S [id number] United Healthcare [facility] Medigap Part B [id number] Self [id number] Health Net Fed Standard Health Maintenance Organization (HMO ) [id number] UNHC COMMUNITY PLAN MCDHMO [id number] SP [id number] HC COMMUNITY PLAN MCDHMO [id number] SP [id number] UNITED HEALTHCARE(MCAID) O [id number] S [id number] United Healthcare Essential Plan P [id number] S [id number] UNHC COMMUNITY PLAN MCDHMO [id number] SP [id number] Managed Care - United HealthCare P [id number] S [id number] United CR/Community Julia Health Maintenance Organization (HMO) [id number] Self [id number] Managed Care - United HealthCare P [id number] S [id number] United Healthcare Oumou/MCR Medigap Part B [id number] Self [id number] Health Net Fed Standard Health Maintenance Organization (HMO ) [id number] [facility](MCAID) O [id number] S [id number] UNHC COMMUNITY PLAN MCDHMO [id number] SP [id number] United Healthcare Oumou/MCR Medigap Part B [id number] Self [id number] Health Net Fed Standard Health Maintenance Organization (HMO ) [id number] Managed Care - United HealthCare P [id number] S [id number] [facility] Oumou/MCR Medigap Part B [id number] Self [id number] Health Net Fed Standard Health Maintenance Organization (HMO ) [id number] United Healthcare Oumou/MCR Medigap Part B [id number] Self [id number] Health Net Fed Standard Health Maintenance Organization (HMO ) [id number] United Healthcare Oumou/MCR Medigap Part B [id number] Self [id number] Health Net Fed Standard Health Maintenance Organization (HMO ) [id number] United Healthcare Oumou/MCR Medigap Part B [id number] Self [id number] Health Net Fed Standard Health Maintenance Organization (HMO ) [id number] [facility] COMMUNITY [facility]AN [facility] [id number] [facility] [id number] 2 [id number] MEDICAID [id number] SP [id number] Medicaid [place] Medigap Part B Self Health Net Federal [facility] Commercial [facility] [place] INN [id number] SP [id number] MEDICAID - CLINIC [id number] N REGIONAL CLAIMS [facility] [id number] Problems, Conditions, and Diagnoses Code Display Name Description Problem Type Effective Dates Data Source(s) N94.89 Pelvic congestion syndrome Pelvic congestion syndrome Problem 08/19/2020 12:00:00 AM [place] [address] ([facility]) H70.001 Acute mastoiditis without complications, right ear Acute mastoiditis without complications, right ear 01/07/2020 12:04:54 PM EDT [facility] L70.0 [id number] Acne vulgaris Problem 12/30/2019 12:00:00 AM EDT [facility] ([facility]) L70.0 [id number] Acne vulgaris Problem 12/30/2019 12:00:00 AM EDT [facility] ([facility]) [id number] Seborrhea capitis Seborrhea capitis 11/28/2019 02:12:10 PM EDT [facility] 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 STI / H 05/07/2020 12:00:00 AM EDT - 05/07/2020 12:00:00 AM EDT [facility] ([facility]) CVR Surveillance Monitor.Svc. Other 05/07/2020 12:00:00 AM EDT - 2019 12:00:00 AM EDT [facility] ([facility]) CVR Surveillance Monitor.Svc. Contraceptive 05/07/2020 12 :00:00 AM EDT - 05/07/2020 12:00:00 AM EDT [facility]Gen ([facility]) CVR Med.Svc. Vaginitis Rx 05/07/2020 12: 00:00 AM EDT - 05/07/2020 12:00:00 AM EDT [facility]Gen ([facility]) CVR Med.Svc. Extremities 05/07/2020 12:0 0:00 AM EDT - 05/07/2020 12:00:00 AM EDT NextGen ([facility]) CVR Med.Svc. Abdominal Palp. 05/07/2020 12:00:00 AM EDT - 05/07/2020 12:00:00 AM EDT NextGen ([facility]) CVR Med.Svc. Heart/Lung Ausc. 05/07/2020 12:00:00 AM EDT - 05/07/2020 12:00:00 AM EDT [facility]Gen ([facility]) CVR Med.Svc. Thyroid Palp. 05/07/2020 12 :00:00 AM EDT - 05/07/2020 12:00:00 AM EDT [facility] ([facility]) CVR Med.Svc. Height/Weight 05/07/2020 12 :00:00 AM EDT - 05/07/2020 12:00:00 AM EDT [facility] ([facility]) CVR Blood Pressure 05/07/2020 12:00:00 AM EDT - 2019 12:00:00 AM EDT [facility] ([facility]) CVR Med.Svc. Other 05/07/2020 12:00:00 AM EDT - 2019 12:00:00 AM EDT [facility] ([facility]) SMEAR, WET MOUNT, SALINE/INK 05/07/2020 12:00:00 AM EDT - 05/07/2020 12:00:00 AM EDT [facility]Gen ([facility]) ASSAY OF BODY FLUID ACIDITY 05/07/2020 1 2:00:00 AM EDT - 05/07/2020 12:00:00 AM EDT NextGen ([facility]) PREV VISIT, EST, AGE 18-39 05/07/2020 12 :00:00 AM EDT - 05/07/2020 12:00:00 AM EDT NextGen ([facility]) HCS Pre Test Counseling 05/07/2020 12:00 :00 AM EDT - 05/07/2020 12:00:00 AM EDT [facility]Gen ([facility]) HIV-1/HIV-2, SINGLE ASSAY 05/07/2020 12: 00:00 AM EDT - 05/07/2020 12:00:00 AM EDT NextGen ([facility]) Injection, triamcinolone acetonide, not otherwise specified , 10 mg 01/20/2020 12:00:00 AM EDT eC1 ([facility], [facility]) INJECT SKIN LESIONS </W 7 01/20/2020 12:00:00 AM EDT [facility] ([facility]) CVR Surveillance Monitor.Svc. STI / H 01/17/2020 12:00:00 AM EDT - 01/17/2020 12:00:00 AM EDT NextGen ([facility]) CVR Surveillance Monitor.Svc. Other 01/17/2020 12:00:00 AM EDT - 2019 12:00:00 AM EDT NextGen ([facility]) CVR Surveillance Monitor.Svc. Contraceptive 01/17/2020 12 :00:00 AM EDT - 01/17/2020 12:00:00 AM EDT NextGen ([facility]) CVR Med.Svc. Height/Weight 01/17/2020 12 :00:00 AM EDT - 01/17/2020 12:00:00 AM EDT NextGen ([facility]) CVR Blood Pressure 01/17/2020 12:00:00 AM EDT - 2019 12:00:00 AM EDT NextGen ([facility]) CVR Med.Svc. Other 01/17/2020 12:00:00 AM EDT - 2019 12:00:00 AM EDT NextGen ([facility]) SMEAR, WET MOUNT, SALINE/INK 01/17/2020 12:00:00 AM EDT - 01/17/2020 12:00:00 AM EDT NextGen ([facility]) ASSAY OF BODY FLUID ACIDITY 01/17/2020 1 2:00:00 AM EDT - 01/17/2020 12:00:00 AM EDT NextGen ([facility]) OFFICE VISIT, EST 01/17/2020 12:00:00 AM EDT - 020 12:00:00 AM EDT [facility]Gen ([facility]) HCS Pre Test Counseling 01/17/2020 12:00 :00 AM EDT - 01/17/2020 12:00:00 AM EDT NextGen ([facility]) HIV-1/HIV-2, SINGLE ASSAY 01/17/2020 12: 00:00 AM EDT - 01/17/2020 12:00:00 AM EDT NextGen ([facility]) TANGNTL BX SKIN SINGLE LES 12/30/2019 12:00:00 AM EDT eCW1 ([facility]) Results ID Date Data Source 0510/14/2020 12:00:00 AM EST [facility] Name Value Range Interpretation Code Description Data Cassy rce(s) Supporting Document(s) SARS-CoV2 Rapid Antigen Negative [facility] This lab was ordered by [facility] and reported by [facility]. ID Date Data Source [id number] 09/08/2020 10:35:00 AM EST [facility] Name Value Range Interpretation Code Description Data Cassy rce(s) Supporting Document(s) SARS coronavirus 2 RNA [facility] This lab was ordered by [facility] and reported by [facility]. ID Date Data Source [id number] 08/27/2020 12:00:00 AM EST [facility] Name Value Range Interpretation Code Description Data Cassy rce(s) Supporting Document(s) SARS coronavirus 2 Ag [facility] This lab was ordered by [facility] and reported by [facility]. ID Date Data Source [id number] 07/21/2020 12:00:00 AM EST [facility] Name Value Range Interpretation Code Description Data Cassy rce(s) Supporting Document(s) 2019-nCoV RNA XXX CHASIDY+probe-Imp [facility] This lab was ordered by [facility] and reported by [employer]. ID Date Data Source [id number] 06/26/2020 10:00:00 AM EDT [facility] Name Value Range Interpretation Code Description Data Cassy rce(s) Supporting Document(s) SARS coronavirus 2 RNA [facility] This lab was ordered by [facility] and reported by [facility]. ID Date Data Source [id number] 06/08/2020 11:56:00 AM EDT [facility] Name Value Range Interpretation Code Description Data Cassy rce(s) Supporting Document(s) BG FASTING 86 mg/dL 70-100 N [facility] y Health ID Date Data Source [id number] 06/08/2020 11:56:00 AM EDT [facility] Name Value Range Interpretation Code Description Data Cassy rce(s) Supporting Document(s) HCT 41.1 % 36.0-47.0 N [facility] HGB 14.1 g/dL 12.0-15.5 N [facility] MCH 34.3 G/DL pg 32.0-36.5 N [facility] MCHC 30.6 PG % 27.0-33.0 N [facility] PLATELETS 393 10 10*3/mm3 150-450 N [facility] RBC 4.61 10 10*6/mm3 4.00-5.40 N [facility] RDW 12.9 % 11.5-14.5 N [facility] WBC TOTAL 10.5 4.0-10.0 H [facility] ID Date Data Source [id number] 05/07/2020 01:59:28 PM EDT NextGen ([facility]) Name Value Range Interpretation Code Description Data Cassy rce(s) Supporting Document(s) Hyphae/Erlinda: no; Budding yeast: no; Trich: no; Clue cells: yes (>=20%); WBCs: no; Amine/Whiff test: negative; pH: 4.5 Abnormal (applies to non-numeric results) Wet Prep [facility] ([facility]) ID Date Data Source [id number] 05/07/2020 01:59:08 PM EDT NextGen ([facility]) Name Value Range Interpretation Code Description Data Cassy rce(s) Supporting Document(s) pH: 4.5. Vaginal pH [facility]Gen ([facility]) ID Date Data Source [id number] 05/07/2020 01:31:45 PM EDT [facility]Gen ([facility]) Name Value Range Interpretation Code Description Data Cassy rce(s) Supporting Document(s) Non-Reactive (Negative); Lot : [id number]; Exp: 08/13/2020; Start time: 1:29 PM; Completed time: 1:31 PM Rapid HIV Next Gen ([facility]) ID Date Data Source [id number] 03/26/2020 12:09:00 PM EDT MEDENT ([facility], ) Name Value Range Interpretation Code Description Data Cassy rce(s) Supporting Document(s) Surgical pathology study Laboratory test result [facility] ([facility], ) FINAL DIAGNOSIS A--Tonsil, right, tonsillectomy: Squamous [...] x 1.0 cm. Specimen is unremar kable. Landscape Engineer sections are submitted in one. B - Received in formalin labeled "left tonsil" consists of a tonsil, 3 x 1.3 x 1.0 cm. The specimen is grossly u nremarkable. Landscape Engineer sections are submitted in one. -OA 03/26/2020 - 1604 Signed MAXI PANTOJA MD 03/27/2020 1143 ID Date Data Source [id number] 03/21/2020 10:30:00 AM EDT [facility] Name Value Range Interpretation Code Description Data Cassy rce(s) Supporting Document(s) SARS coronavirus 2 RNA [facility] This lab was ordered by [facility] and reported by [facility]. ID Date Data Source [id number] 01/31/2020 08:07:04 AM EDT [facility] Measurements & CalculationsWeight: 267 pounds 121.36 kg Vital SignsPulse Rate: 66 beats/minuteBlood Pressure: 128/86 Vital Signs performed by: Leo Schwartz MA, January 31, 2020 8:08 AM Name Value Range Interpretation Code Description Data Cassy rce(s) Supporting Document(s) ID Date Data Source [id number] 01/17/2020 09:34:48 AM EDT [facility] ([facility]) Name Value Range Interpretation Code Description Data Cassy rce(s) Supporting Document(s) NegativeHyphae/Erlinda: noB udding yeast: noTrich: noClue cells: noWBCs: noAmine/Whiff test: negativepH: 4.5 [facility] ([facility]) ID Date Data Source [id number] 01/17/2020 09:34:30 AM EDT NextGen ([facility]) Name Value Range Interpretation Code Description Data Cassy rce(s) Supporting Document(s) pH: 4.5. Vaginal pH [facility] ([facility]) ID Date Data Source [id number] 01/17/2020 08:58:56 AM EDT NextGen ([facility]) Name Value Range Interpretation Code Description Data Cassy rce(s) Supporting Document(s) Non-Reactive (Negative)Lot: [id number]: 05/14/2020Test date: 01/17/2020Start time: 8:55 AMCompleted time: 8:58 AM Rapid HIV [facility]Gen ([facility]) ID Date Data Source [id number] 01/07/2020 11:33:05 AM EDT [facility] Measurements & CalculationsHeight: [...] DERMATOLOGYHave you [facility] a [facility]? [facility]: [facility]Intake performed by: [...] scalp biopsy about 1 week ago, by [facility] dermatology. Pt is waiting for biopsy results, but states they don't think it is alopecia. They are thinking her hair loss is lupus. Transitions of Care InboundProblem ReviewProblem List was reviewed and/or updated during this visit.Medication Reconciliation & ReviewMedication List was reviewed and/or updated during this visit, including review of any ktyr-zxh-yuhmweb medications, herbal therapies, and/or supplements.Allergy ReviewAllergy List [...] Problems:Added: Acute mastoiditis without complications, right ear (MSQ20-U19.001) Assessment: Instructions: Start antibotics as prescribed. Take [...] (Critical)Orders:Adult - Ofc Vst, EST, Level II [CPT-41894] Follow-Up Return to clinic: as needed Clinical Visit Summary CompletedMedications:PERCOCET 5-325 MG ORAL TABLET (OXYCODONE- ACETAMINOPHEN) Take 1 tablet po q 6 hrs prn; MDD 4 tablets #12[Tablet] x 0 Route:ORAL Entered and Authorized by: Eduar ORTIZ Method used: Electronically to [facility] (retail) [address] [place] [address] Fax: Note to Pharmacy: Route: ORAL; RxID: [id number] 500 MG ORAL CAPSULE (CEPHALEXIN) Take 1 tablet po QID x 7 days #28[Capsule] x 0 Route:ORAL Entered and Authorized by: Eduar ORTIZ Method used: Electronically to [facility] (retail) [address] [place] [address] Fax: Note to Pharmacy: Route: ORAL; Indications: ACUTE MASTOIDITIS WITHOUT COMPLICATIONS, RIGHT EAR RxID: [id number] signed by Eduar ORTIZ on 01/14/2020 at 1:37 PM Name Value Range Interpretation Code Description Data Cassy rce(s) Supporting Document(s) ID Date Data Source [id number] 12/30/2019 11:01:43 AM EDT [facility] Initial Intake Information from: [facility] Complaint[facility] check for Dr WinstonMeasurements & CalculationsHeight: [...] rce(s) Supporting Document(s) ID Date Data Source [id number] 12/13/2019 12:00:00 AM EDT [facility] Name Value Range Interpretation Code Description Data Cassy rce(s) Supporting Document(s) 2019-nCoV N XXX Ql CHASIDY N2 [facility] This lab was ordered by [facility] and reported by [facility]. ID Date Data Source [id number] 11/28/2019 01:31:42 PM EDT [facility] Measurements & CalculationsHeight: 66 inches [...] (ER) or urgent care clinic? 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 Start Ketoconazole shampoo, instructed on how to use. Alternate days with normal shampoo. Avoid scratching as part of the alopecia may be mechanical shearing. Differential includes fungal versus atopic origin of scaling and itching.Seborrhea capitis (KDI64-M61.0) Assessment: Instructions: As above.Assessment not Saved Circumscribed alopecia areata of scalp (NUH02-D67.8): Comment OnlyInstructions: Referral to dermatology. Start Ketoconazole [...] Method: ElectronicAllergies:* POLLEN (Critical)* LATEX (Critical)Orders:Dermatology Consult [CPT-99590] Adult - Ofc Vst, EST, Level II [CPT-53688] Follow-Up Return to clinic: as needed Med ications:KETOCONAZOLE 2 % EXTERNAL SHAMPOO (KETOCONAZOLE) Apply to scalp every 2-3 days when bathing, let sit for 3 mins, then rinse well #4[Ounce] x 5 Route:EXTERNAL Entered and Authorized by: Eduar ORTIZ Method used: Electronically to [facility] (retail) [address] [place] [address] Fax: Note to Pharmacy: Route: EXTERNAL; Indications: CIRCUMSCRIBED ALOPECIA AREATA OF SCALP;SEBORRHEA CAPITIS RxID: [id number]] Name Value Range Interpretation Code Description Data Cassy rce(s) Supporting Document(s) ID Date Data Source [id number] 11/21/2019 08:41:50 AM EDT [facility] Measurements & CalculationsWeight: 269 pounds 4 oz. 122.39 kg Vital SignsPulse Rate: 73 beats/minuteBlood Pressure: 118/72 Vital Signs performed by: Leo Schwartz MA, November 21, 2019 8:58 AMAssessment & Plan Orders:[id number] Vst-Est Level I [CPT-73285] Labs In-House Blood TestsDate/Time Collected: November 21, 2019 8:42 AMTest Result Reference Range Normal ValueComments: blood draw done in office done in the right ac tolerated well Leo Efren JESSICA, November 21, 2019 8:42 AM _ Name Value Range Interpretation Code Description Data Cassy rce(s) Supporting Document(s) ID Date Data Source [id number] 11/06/2019 08:26:24 AM [facility] Measurements & CalculationsHeight: 66 inches (5 [...] during this visit, including review of any wuvl-den-hxpjplj medications, herbal therapies, and/or supplements.Allergy ReviewAllergy List [...] FairAssessment & Plan Problems:Added: MORBID OBESITY (ICD-278.01) (NLD28-G94.01) Assessment: Instructions: Recommend healthy lifestyle modification. Encourage portion control, healthy food choices, and increasing routine physical activity. Recommendation is for 150 minutes throughout the week of cardiovascular exercise.BMI 40.0-44.9 (ICD-V85.41) (ZPZ04-P53.41) Assessment: Instructions: Continue per Dr. Winston.Assessed:Essential (primary) hypertension (XMA19-N58) Assessment: Instructions: Continue current medication. Complete labs [...] (Critical)Orders:Adult - Ofc Vst, EST, Level II [CPT-66194] Follow-Up Return to clinic: in 90 days for preventive care visitAdditional Follow-Up: annual PE, HTNClinical Visit Summary Declined][Immunization Management] Name Value Range Interpretation Code Description Data Cassy rce(s) Supporting Document(s) Procedure Social History Code Duration Value Status Description Data Source(s ) Smoking 08/27/2020 12:00:00 AM EST Patient has never smoked co mpleted Patient has never smoked MEDENT ([facility], [facility]) Smoking 07/16/2020 12:00:00 AM EST Never Smoker completed Never S moker eCW1 ([facility]) Smoking 07/16/2020 12:00:00 AM EST Never Smoker completed Never S moker eCW1 ([facility]) Smoking 07/16/2020 12:00:00 AM EST Never Smoker completed Never S moker eCW1 ([facility]) Smoking 07/16/2020 12:00:00 AM EST Never Smoker completed Never S moker eCW1 ([facility]) Smoking 07/16/2020 12:00:00 AM EST Never Smoker completed Never S moker eCW1 ([facility]) Smoking 07/16/2020 12:00:00 AM EST Never Smoker completed Never S modominic eCW1 ([facility]) Smoking 05/07/2020 12:00:00 AM EDT Never smoker completed Never s modominic NextGen ([facility]) Vital Signs ID Date Data Source UNK Name Value Range Interpretation Code Description Data Source(s) Body temperature 98.6 [degF] 98.6 [degF] MEDENT ([facility], [facility]) Oxygen saturation in Arterial blood by Pulse oximetry 98 % 98 % [facility] ([facility], [facility]) Respiratory rate 14 /min 14 /min [facility] ( [facility], [facility]) Heart rate 82 /min 82 /min [facility] ([facility], [facility]) Diastolic blood pressure 90 mm[Hg] 90 mm[Hg] MEDENT ([facility]) Systolic blood pressure 137 mm[Hg] 137 mm[Hg] M EDENT ([facility], [facility]) Body mass index (BMI) [Ratio] 40.8 kg/m2 40.8 k g/m2 MEDENT ([facility], [facility]) Body height 66 [in_i] 66 [in_i] MEDENT ([facility]) 5'6" Body weight 253.00 [lb_av] 253.00 [lb_av] MEDEN T ([facility]) Diastolic blood pressure 78 mm[Hg] 78 mm[Hg] eCW1 ([facility]) Systolic blood pressure 132 mm[Hg] 132 mm[Hg] e CW1 ([facility]) Body mass index (BMI) [Ratio] 42.92 kg/m2 42.92 kg/m2 eCW1 ([facility]) Body height 66.5 [in_i] 66.5 [in_i] eCW1 ([facility]) Body weight 270 [lb_av] 270 [lb_av] eCW1 ([facility]) Diastolic blood pressure 76 mm[Hg] 76 mm[Hg] eCW1 ([facility]) Systolic blood pressure 122 mm[Hg] 122 mm[Hg] e CW1 ([facility]) Body mass index (BMI) [Ratio] 43.08 kg/m2 43.08 kg/m2 eCW1 ([facility]) Body height 66.5 [in_i] 66.5 [in_i] eCW1 ([facility]) Body weight 271 [lb_av] 271 [lb_av] eCW1 ([facility]) Diastolic blood pressure 86 mm[Hg] 86 mm[Hg] eCW1 ([facility]) Systolic blood pressure 136 mm[Hg] 136 mm[Hg] e CW1 ([facility]) Body mass index (BMI) [Ratio] 42.76 kg/m2 42.76 kg/m2 W1 ([facility]) Body height 66.5 [in_i] 66.5 [in_i] eCW1 ([facility]) Body weight 269 [lb_av] 269 [lb_av] eCW1 ([facility]) Body mass index (BMI) [Ratio] 43.45 kg/m2 Overweight 43.45 kg/m2 Next[facility] ([facility]) Diastolic blood pressure 80 mm[Hg] 80 mm[Hg] NextGen ([facility]) Systolic blood pressure 122 mm[Hg] 122 mm[Hg] N extGen ([facility]) Body weight 122.107 kg 122.107 kg [facility] ([facility]) Body height 167.64 cm 167.64 cm [facility] ([facility]) Body weight 115.214 kg 115.214 kg MEDENT ([facility], ) Body mass index (BMI) [Ratio] 41.0 kg/m2 41.0 k g/m2 MEDENT ([facility], ) Body weight 254.00 [lb_av] 254.00 [lb_av] MEDEN T ([facility], ) Body height 66 [in_i] 66 [in_i] MEDENT ([facility], ) 5'6" Diastolic blood pressure 86 mm[Hg] 86 mm[Hg] eCW1 ([facility]) Systolic blood pressure 124 mm[Hg] 124 mm[Hg] e CW1 ([facility]) Body mass index (BMI) [Ratio] 43.21 kg/m2 43.21 kg/m2 W1 ([facility]) Body height 66.5 [in_us] 66.5 [in_us] W1 ([facility] Body weight Measured 271.8 [lb_av] 271.8 [lb_av ] [facility] ([facility]) Body mass index (BMI) [Ratio] 43.58 kg/m2 Overweight 43.58 kg/m2 NextGen ([facility]) Diastolic blood pressure 82 mm[Hg] 82 mm[Hg] NextGen ([facility]) Systolic blood pressure 132 mm[Hg] 132 mm[Hg] N extGen ([facility]) Body weight 122.470 kg 122.470 kg [facility] ([facility]) Body height 167.64 cm 167.64 cm Next[facility] ([facility]) Diastolic blood pressure 74 mm[Hg] 74 mm[Hg] eCW1 ([facility]) Systolic blood pressure 128 mm[Hg] 128 mm[Hg] e CW1 ([facility]) Body mass index (BMI) [Ratio] 42.84 kg/m2 42.84 kg/m2 [facility] ([facility]) Body height 66.5 [in_us] 66.5 [in_us] eCW1 ([facility] Body weight Measured 269.5 [lb_av] 269.5 [lb_av ] W1 ([facility]) Body weight 115.214 kg 115.214 kg MEDENT ([facility], ) Body mass index (BMI) [Ratio] 41.0 kg/m2 41.0 k g/m2 MEDENT ([facility], ) Body weight 254.00 [lb_av] 254.00 [lb_av] MEDEN T ([facility], ) Body height 66 [in_i] 66 [in_i] MEDENT ([facility], ) 5'6" Diastolic blood pressure 78 mm[Hg] 78 mm[Hg] eCW1 ([facility]) Systolic blood pressure 138 mm[Hg] 138 mm[Hg] e CW1 ([facility]) Body mass index (BMI) [Ratio] 43.18 kg/m2 43.18 kg/m2 [facility] ([facility]) Body height 66.5 [in_us] 66.5 [in_us] W1 ([facility] Body weight Measured 271.6 [lb_av] 271.6 [lb_av ] [facility] ([facility]) Patient Treatment Plan of Care Planned Activity Planned Date Details Description Data Source (s) Betamethasone 0.5 MG/ML / Clotrimazole 10 MG/ML Topica l Cream 01/14/2020 12:00:00 AM EDT [facility] (Counts include 234 beds at the [facility])
[2020-10-29 10:30] LABS: BLOOD UREA NITROGEN 11 MG/DL (7-18); CALCIUM LEVEL 8.7 MG/DL (8.5-10.1); CARBON DIOXIDE LEVEL 30 MEQ/L (21-32); CHLORIDE LEVEL 102 MEQ/L (98-107); GLOMERULAR FILTRATION RATE > 60.0 (>60); GLUCOSE, FASTING 100 MG/DL (70-100); POTASSIUM SERUM 3.3 MEQ/L (3.5-5.1); SODIUM LEVEL 139 MEQ/L (136-145)
[2020-10-29] MEDS ORDERED: K-TA10TA2 PO (10:51)
[2020-10-29] MEDS ORDERED: BLOOD TEST (10:56)
[2020-10-29 11:14] VITALS: BP 119/74
== END 2020-10-29 11:25 | disposition home or self-care (01) ==
LOC: M ED 09:06
DX: E87.6 Hypokalemia (principal); I10 Essential (primary) hypertension; Z79.899 Other long term (current) drug therapy; Z91.040 Latex allergy status

== ENCOUNTER → 2020-11-05 | Outpatient (CLI) | payer BC ==
[~2020-11-05] MED LIST changes: +BLOOD TEST; +FAMO20TA PO; +K-TA10TA2 PO; +LISI10TA22 PO
[2020-11-05 09:42] LABS: BLOOD UREA NITROGEN 13 MG/DL (7-18); CALCIUM LEVEL 8.8 MG/DL (8.5-10.1); CARBON DIOXIDE LEVEL 29 MEQ/L (21-32); CHLORIDE LEVEL 104 MEQ/L (98-107); CREATININE FOR GFR 0.63 MG/DL (0.55-1.30); GLOMERULAR FILTRATION RATE > 60.0 (>60); GLUCOSE, FASTING 96 MG/DL (70-100); POTASSIUM SERUM 3.4 MEQ/L (3.5-5.1); SODIUM LEVEL 138 MEQ/L (136-145)
== END ==
LOC: M LAB 08:35
PROVIDERS: ATTEND Internal Medicine
DX: E87.6 Hypokalemia (principal)

== ENCOUNTER → 2020-11-09 | Outpatient (REF) | payer BC ==
[2020-11-09 18:19] LABS: BLOOD UREA NITROGEN 12 MG/DL (7-18); CALCIUM LEVEL 8.6 MG/DL (8.5-10.1); CARBON DIOXIDE LEVEL 26 MEQ/L (21-32); CHLORIDE LEVEL 106 MEQ/L (98-107); CREATININE FOR GFR 0.59 MG/DL (0.55-1.30); GLOMERULAR FILTRATION RATE > 60.0 (>60); GLUCOSE, FASTING 91 MG/DL (70-100); POTASSIUM SERUM 3.9 MEQ/L (3.5-5.1); SODIUM LEVEL 138 MEQ/L (136-145)
== END ==
LOC: M LAB REF 15:55
PROVIDERS: ATTEND Physician Assistant
DX: E87.6 Hypokalemia (principal)

== ENCOUNTER → 2020-11-13 | Outpatient (CLI) | payer BC | LOC: M LABSMTC 09:36 | PROVIDERS: ATTEND Anesthesiology | DX: Z01.812 Encounter for preprocedural laboratory examination (principal); Z20.822 Contact with and (suspected) exposure to COVID-19 ==

== ENCOUNTER 2020-11-18 06:13 | Day surgery (SDC) | payer BC ==
[~2020-11-18] VITALS: Ht 167.6 cm; Wt 122.0 kg
[2020-11-18] MEDS ORDERED: PHEN-501 (06:40)
[2020-11-18 06:49] LABS: HEMATOCRIT 37.2 % (36.0-47.0); HEMOGLOBIN 12.4 g/dl (12.0-15.5); MEAN CORPUSCULAR HEMOGLOBIN 29.5 pg (27.0-33.0); MEAN CORPUSCULAR HGB CONC 33.3 g/dl (32.0-36.5); MEAN CORPUSCULAR VOLUME 88.6 fl (80.0-96.0); PLATELET COUNT, AUTOMATED 335 10^3/uL (150-450); WHITE BLOOD COUNT 6.4 10^3/uL (4.0-10.0)
[2020-11-18] MEDS ORDERED: ceFAZolin SOD 2 GM in IV 1 EA IV ONE (07:00)
[2020-11-18] MEDS ORDERED: LR 1,000 ML IV ONE (07:00)
[2020-11-18] MEDS ORDERED: BUPIVACAINE HCL 0.25% 30ML VIAL As Ordered ONE (07:15)
[2020-11-18] MEDS ORDERED: dexameTHASONE 4 MG/ML 1ML VIAL (J1100 PER 1MG) As Ordered ONE ×2 (07:19→08:56)
[2020-11-18] MEDS ORDERED: ROCURONIUM BROMIDE 50 MG/5 ML VIAL As Ordered ONE ×2 (07:19→08:15)
[2020-11-18] MEDS ORDERED: propofoL 200 MG/20 ML VIAL As Ordered ONE (07:19)
[2020-11-18] MEDS ORDERED: LIDOCAINE 2% 100MG/5ML SDV (FOR ANES.) As Ordered ONE (07:19)
[2020-11-18] MEDS ORDERED: ONDANSETRON 4MG/2ML VIAL As Ordered ONE (07:19)
[2020-11-18] MEDS ORDERED: fentaNYL 100 MCG/2 ML INJECTION (J3010) As Ordered ONE ×2 (07:19→09:42)
[2020-11-18] MEDS ORDERED: MIDAZOLAM INJ 2MG/2ML VIAL (J2250 PER 1MG) As Ordered ONE (07:20)
[2020-11-18] MEDS ORDERED: GLYCOPYRROLATE INJ 0.2 MG/ML 2 ML VIAL As Ordered ONE ×3 (08:30→09:07)
[2020-11-18] MEDS ORDERED: HYDROmorphone HCL 2 MG/ML 1ML VIAL (J1170) As Ordered ONE (08:35)
[2020-11-18] MEDS ORDERED: KETOROLAC 60MG 2ML VIAL As Ordered ONE (08:57)
[2020-11-18] MEDS ORDERED: ACETAMINOPHEN 1000MG 100ML IV BTL (OFIRMEV) (J0131 PER 10MG) As Ordered ONE (08:57)
[2020-11-18] MEDS ORDERED: NEOSTIGMINE 10MG/10ML VIAL (J2710 PER 0.5MG) As Ordered ONE (08:57)
[2020-11-18] MEDS ORDERED: LACRILUBE (AKWA TEARS) OPHTH OINT 3.5 GM As Ordered ONE (08:57)
[2020-11-18] MEDS: fentaNYL 100 MCG/2 ML INJECTION (J3010) IV PRN ×4 (09:45→10:12)
[2020-11-18] MEDS ORDERED: ONDANSETRON 4MG/2ML VIAL IV PRN (09:50)
[2020-11-18] MEDS ORDERED: PERCOCET 5MG/325MG TAB PO PRN (09:50)
[2020-11-18] MEDS ORDERED: LR 1,000 ML IV SCH (09:50)
[2020-11-18] MEDS: oxyCODONE 5MG TAB PO PRN ×2 (09:58→10:24)
[2020-11-18 12:20] VITALS: BP 125/63
--- NOTE | 2020-11-18 12:23 | ROOPDOC ---
[facility] Report Of Operation Report of Operation DATE OF PROCEDURE: 11/18/20 PREPROCEDURE DIAGNOSES: 1. Pelvic congestion syndrome 2. Chronic pelvic pain POSTPROCEDURE DIAGNOSES: 1. Pelvic congestion syndrome 2. Chronic pelvic pain PROCEDURES PERFORMED: 1. Robotic-assisted laparoscopic hysterectomy. 2. Bilateral salpingectomy. 3. Cystoscopy. SURGEON: Nakia Walker MD CODE ENFORCEMENT SUPERVISOR: IVANA Dhillon ANESTHESIA: General endotracheal anesthesia. ESTIMATED BLOOD LOSS: 50 mL. INTRAVENOUS FLUIDS: 1000mL lactated Ringer solution. URINE OUTPUT: 100mL. PREPROCEDURE ANTIBIOTICS: 2g Ancef OPERATIVE FINDINGS: The patient with normal-appearing bilateral adnexa and uterus CYSTOSCOPIC FINDING: Normal bladder mucosa, no foreign objects. Bilateral ureteral jets were observed. SPECIMEN: Uterus, cervix, bilateral fallopian tubes DESCRIPTION OF PROCEDURE: After informed consent was obtained and written consent was reviewed, the patient was brought to the operating room, where general endotracheal anesthesia was obtained. She was then placed in lithotomy position, was prepped and draped in a normal sterile fashion. A time-out in the operating room was then performed, identifying the patient, procedure to be performed, as well as drug allergies. A speculum was then placed, revealing the cervix. The anterior and posterior aspects of the cervix were stitched with a 0 Vicryl. The uterus was then sounded to 9cm. A large [employer] uterine manipulator was then advanced through the cervical os for means to manipulate the uterus. The cervical cap was applied over the cervix, as well as the vaginal sleeve applied into the vagina. The speculum was removed from the patients vagina. A Bustos catheter was then placed and set to gravity. Gloves were changed, and attention was turned to the patients abdomen, where a Veress needle was placed through the umbilicus. A pneumoperitoneum was then obtained with CO2 gas. The supraumbilical area was infused with 0.25% Marcaine. An incision was made in this area, and a 8 mm trocar and sleeve was advanced through this incision. The laparoscope was then replaced, revealing intra-abdominal placement. Three additional port sites were placed, two to the left side of the patient's abdomen and one to the right. These areas was infused with 0.25% Marcaine. Each one of these areas, incisions were made, and 8 mm trocars and sleeves advanced through each one of these incisions under direct visualization. Next, the da Norah was then docked, utilizing a camera arm and two operative arms. The patient's abdomen was then surveyed with the above-noted finding. Bilateral salpingectomies were then performed. The fallopian tubes mesosalpinx was cauterized and ligated with hemostasis noted. Next, the uteroovarian ligaments bilateral were cauterized and ligated with good hemostasis noted. The round ligaments bilaterally were cauterized and ligated with good hemostasis noted. The anterior and posterior aspects of broad ligaments were . The anterior leaf of the broad ligament was cauterized and ligated and dissected along the bladder, creating a bladder flap. The remainder of the broad and cardinal ligaments were then cauterized and ligated with good hemostasis noted. The uterine arteries were skeletonized bilaterally and were cauterized and transected with good hemostasis noted. Anterior and posterior colpotomies were made using monopolar scissors. The uterus was then brought out through the vaginal incision. The surgical sites were inspected and noted to be hemostatic. The vaginal cuff was then closed using 2-0 V-Loc system in a running fashion. Moe was then applied over the surgical field. The pneumoperitoneum was then released. Next, the cystoscopy was then performed. Utilizing a 70-degree cystoscope, it was advanced transurethrally through the bladder. The bladder was surveyed, showing normal bladder mucosa, no foreign bodies. The bilateral ureteral jets were observed. The cystoscope was then removed. The bladder was then drained. Gloves were changed. Attention was then turned to the patients abdomen, where all four port sites were closed with 4-0 Monocryl and dressed with Dermabond. The patient was then taken out of lithotomy position and was awakened from general anesthesia and taken to recovery in stable condition. Counts were correct. Apolonia Carballo, my surgical clinical reviewer, played a central role in the operation. She assisted with port placement, tissue retraction and identification, as well as wound closure. NAKIA WALKER MD. Nov 18, 2020 12:17
[2020-11-18] MEDS ORDERED: KETOROLAC 30 MG/ML 1ML VIAL IV SCH (15:00)
== END 2020-11-18 12:30 | disposition home or self-care (01) ==
LOC: M SDC 06:13
PROVIDERS: ATTEND Obstetrics & Gynecology
DX: N94.89 Other specified conditions associated with female genital organs and menstrual cycle (principal); N80.0 Endometriosis of uterus; R10.2 Pelvic and perineal pain; I10 Essential (primary) hypertension; G43.909 Migraine, unspecified, not intractable, without status migrainosus; Z79.899 Other long term (current) drug therapy; Z91.040 Latex allergy status
CPT/HCPCS: 36415; 58571; 81025; 85027; 86850; 86900; 86901; 88307; J0131; J0690; J1100; J1170; J1885; J2250; J2405; J2710; J3010; S2900

== ENCOUNTER 2020-12-02 10:50 | Emergency (ER) | payer BC ==
[~2020-12-02] VITALS: Ht 167.6 cm; Wt 121.7 kg
[~2020-12-02 10:50] MED LIST changes: +PHEN-501
[2020-12-02] MEDS ORDERED: METR-265 (10:59)
[2020-12-02] MEDS ORDERED: KETOROLAC 30 MG/ML 1ML VIAL IV ONE (11:25)
[2020-12-02] MEDS ORDERED: NS 1,000 ML IV ONE (11:25)
[2020-12-02 11:53] LABS: BASO # 0.1 10^3/uL (0.0-0.2); BASO % 0.6 % (0.0-1.0); EOS # 0.1 10^3/uL (0.0-0.5); EOS % 1.5 % (0.0-3.0); HEMATOCRIT 39.7 % (36.0-47.0); HEMOGLOBIN 13.2 g/dl (12.0-15.5); LYMPH # 1.9 10^3/uL (1.5-5.0); LYMPH % 20.1 % (24.0-44.0); MEAN CORPUSCULAR HEMOGLOBIN 29.4 pg (27.0-33.0); MEAN CORPUSCULAR HGB CONC 33.2 g/dl (32.0-36.5); MEAN CORPUSCULAR VOLUME 88.4 fl (80.0-96.0); MONO # 0.5 10^3/uL (0.0-0.8); MONO % 5.3 % (2.0-8.0); NEUTROPHILS # 6.9 10^3/uL (1.5-8.5); NEUTROPHILS % 72.2 % (36.0-66.0); PLATELET COUNT, AUTOMATED 391 10^3/uL (150-450); RED BLOOD COUNT 4.49 10^6/uL (4.00-5.40); WHITE BLOOD COUNT 9.6 10^3/uL (4.0-10.0)
[2020-12-02] MEDS ORDERED: ISOVUE-370 76% 100ML VIAL As Ordered ONE (12:14)
[2020-12-02 12:22] LABS: ALBUMIN 3.2 GM/DL (3.2-5.2); BILIRUBIN,DIRECT 0.1 MG/DL (0.0-0.2); BILIRUBIN,TOTAL 0.4 MG/DL (0.2-1.0); TOTAL PROTEIN 6.9 GM/DL (6.4-8.2)
--- NOTE | 2020-12-02 12:57 | REP ---
INDICATION: hyst 10, severe Rpelvic/umbilical pain, VB. COMPARISON: Pelvic ultrasound dated 06/08/2020. TECHNIQUE: Abdomen/pelvis CT with IV contrast, without bowel contrast. FINDINGS: Patient underwent hysterectomy on November 18. The visualized lung tovar are unremarkable. The hepatic parenchyma, gallbladder, pancreas and spleen are normal size and unremarkable. The adrenals, kidneys and abdominal aorta are unremarkable. The bowel and mesentery are unremarkable. The appendix is is not identified, however, there is no pericecal inflammation or abscess. The terminal ileum is unremarkable. Pelvis: There is a 3.3 cm cyst on the left. There is no pelvic adenopathy or free fluid. The pelvic bowel loops are unremarkable. There are no inflammatory changes in the mesentery. The bladder, vaginal cuff and adnexa are otherwise unremarkable. IMPRESSION: There is a 3.3 cm cyst in the pelvis on the left. There is no free fluid in the abdomen or pelvis. There are no inflammatory changes in the mesentery. No focal fluid collections to suggest abscess or hematoma. The The appendix is not identified, however there is no pericecal inflammation or abscess. No bowel distention or obstruction. No pneumoperitoneum. Vaginal cuff and adnexa are otherwise unremarkable. <Electronically signed by Abdias Vick > 12/02/20 [id number]
[2020-12-02 13:39] VITALS: BP 169/75
== END 2020-12-02 13:40 | disposition home or self-care (01) ==
LOC: M ED 10:50
DX: L76.22 Postprocedural hemorrhage of skin and subcutaneous tissue following other procedure (principal); I10 Essential (primary) hypertension; N77.1 Vaginitis, vulvitis and vulvovaginitis in diseases classified elsewhere; B34.9 Viral infection, unspecified; Z79.2 Long term (current) use of antibiotics; Z91.040 Latex allergy status
CPT/HCPCS: 74177; 80047; 80076; 83605; 85025; 86850; 86900; 86901; 96361; 96374; 99283; J1885; Q9967

== ENCOUNTER → 2020-12-09 | Outpatient (REF) | payer BC ==
[2020-12-09 16:49] LABS: BLOOD UREA NITROGEN 13 MG/DL (7-18); CALCIUM LEVEL 8.9 MG/DL (8.5-10.1); CARBON DIOXIDE LEVEL 30 MEQ/L (21-32); CHLORIDE LEVEL 108 MEQ/L (98-107); CREATININE FOR GFR 0.58 MG/DL (0.55-1.30); GLOMERULAR FILTRATION RATE > 60.0 (>60); GLUCOSE, FASTING 94 MG/DL (70-100); SODIUM LEVEL 142 MEQ/L (136-145)
== END ==
LOC: M LAB REF 15:53
PROVIDERS: ATTEND Physician Assistant
DX: E87.6 Hypokalemia (principal)

== ENCOUNTER → 2020-12-30 | Outpatient (CLI) | payer BC | LOC: M LAB 13:45 | PROVIDERS: ATTEND Advanced Practice Midwife | DX: R30.0 Dysuria (principal) ==

== ENCOUNTER 2021-08-22 08:24 | Emergency (ER) | payer BC, SELFPAY ==
[~2021-08-22] VITALS: Ht 167.6 cm; Wt 122.7 kg
[~2021-08-22 08:24] MED LIST changes: +EMTR1TAB16; +EMTR1TAB16 PO; -TRUVTAB; -TRUVTAB PO
[2021-08-22 08:25] VITALS: BP 130/88
[2021-08-22] MEDS ORDERED: BUSP10TA PO (08:29)
[2021-08-22] MEDS ORDERED: ACET-683 PO (09:31)
== END 2021-08-22 09:54 | disposition home or self-care (01) ==
LOC: M ED 08:24
DX: H65.01 Acute serous otitis media, right ear (principal); J30.9 Allergic rhinitis, unspecified; I10 Essential (primary) hypertension; G43.909 Migraine, unspecified, not intractable, without status migrainosus; Z91.040 Latex allergy status

== ENCOUNTER → 2021-09-06 | Outpatient (CLI) | payer BC ==
[~2021-09-06] MED LIST changes: +ACET-683 PO; +BUSP10TA PO; +FAMO40TA3
== END ==
LOC: M EKG 08:20
PROVIDERS: ATTEND Orthopaedic Surgery
DX: Z01.810 Encounter for preprocedural cardiovascular examination (principal)

== ENCOUNTER → 2021-09-14 | Outpatient (REF) | payer BC ==
[~2021-09-14] MED LIST changes: -FAMO40TA3
== END ==
LOC: M LAB REF 12:56
PROVIDERS: ATTEND Orthopaedic Surgery
DX: M67.471 Ganglion, right ankle and foot (principal)

== ENCOUNTER 2021-10-07 08:45 | Emergency (ER) | payer BC ==
[~2021-10-07] VITALS: Ht 170.2 cm; Wt 125.9 kg
[2021-10-07] MEDS ORDERED: FAMO40TA3 (08:57)
[2021-10-07] MEDS ORDERED: KETO10TAB PO (12:43)
[2021-10-07] MEDS ORDERED: ONDA4TAB6 PO (12:43)
[2021-10-07 13:07] VITALS: BP 126/82
== END 2021-10-07 13:08 | disposition home or self-care (01) ==
LOC: M ED 08:45
DX: G43.909 Migraine, unspecified, not intractable, without status migrainosus (principal); N94.89 Other specified conditions associated with female genital organs and menstrual cycle; I10 Essential (primary) hypertension; K21.9 Gastro-esophageal reflux disease without esophagitis; Z86.16 Personal history of COVID-19; Z98.890 Other specified postprocedural states; Z79.899 Other long term (current) drug therapy

== ENCOUNTER → 2021-11-19 | Outpatient (CLI) | payer BC ==
[~2021-11-19] MED LIST changes: +E-Z-GAS II EFFERVESCENT PACKET (SODIUM BICARB./CITRIC ACID/SIMETHICONE) As Ordered ONE; +E-Z-HD 98% w/w 340GM SUSP BTL As Ordered ONE; +E-Z-PAQUE 96% w/w SUSP 176GM BTL As Ordered ONE; +FAMO40TA3
== END ==
LOC: M RAD 09:49
PROVIDERS: ATTEND Physician Assistant
DX: K21.9 Gastro-esophageal reflux disease without esophagitis (principal)

== ENCOUNTER 2021-12-06 08:07 | Emergency (ER) | payer BC ==
[~2021-12-06] VITALS: Ht 167.6 cm; Wt 124.6 kg
[~2021-12-06 08:07] MED LIST changes: -E-Z-GAS II EFFERVESCENT PACKET (SODIUM BICARB./CITRIC ACID/SIMETHICONE) As Ordered ONE; -E-Z-HD 98% w/w 340GM SUSP BTL As Ordered ONE; -E-Z-PAQUE 96% w/w SUSP 176GM BTL As Ordered ONE
[2021-12-06] MEDS ORDERED: SUCR1TAB56 (08:15)
[2021-12-06] MEDS ORDERED: BUPR150T5 (08:15)
[2021-12-06] MEDS ORDERED: PANT40TA29 (08:15)
[2021-12-06] MEDS ORDERED: ACETAMINOPHEN 325 MG TAB PO ONE (08:35)
[2021-12-06 11:14] VITALS: BP 142/86
== END 2021-12-06 11:15 | disposition home or self-care (01) ==
LOC: M ED 08:07
DX: S00.33XA Contusion of nose, initial encounter (principal); W54.1XXA Struck by dog, initial encounter; Y92.018 Other place in single-family (private) house as the place of occurrence of the external cause; Z79.899 Other long term (current) drug therapy

== ENCOUNTER → 2022-02-11 | Outpatient (CLI) | payer BC ==
[~2022-02-11] MED LIST changes: +BUPR-71 PO; -FAMO40TA3; +FAMO40TA3 PO; +SUCR1TAB56 PO
== END ==
LOC: M LABSMTC 10:20
PROVIDERS: ATTEND Anesthesiology
DX: Z01.818 Encounter for other preprocedural examination (principal); Z11.52 Encounter for screening for COVID-19

== ENCOUNTER 2022-02-16 11:43 | Day surgery (SDC) | payer BC ==
[~2022-02-16] VITALS: Ht 167.6 cm; Wt 122.0 kg
[~2022-02-16 11:43] MED LIST changes: +NS 1,000 ML IV ONE; +propofoL 200 MG/20 ML VIAL As Ordered ONE
[2022-02-16] MEDS ORDERED: fentaNYL 100 MCG/2 ML INJECTION As Ordered ONE (12:54)
[2022-02-16] MEDS ORDERED: propofoL 200 MG/20 ML VIAL As Ordered ONE (12:54)
[2022-02-16] MEDS ORDERED: ONDANSETRON 4MG/2ML VIAL As Ordered ONE (13:04)
[2022-02-16 13:20] VITALS: BP 136/77
== END 2022-02-16 13:36 | disposition home or self-care (01) ==
LOC: M OPP 11:43
PROVIDERS: ATTEND Surgery
DX: K29.80 Duodenitis without bleeding (principal); K29.70 Gastritis, unspecified, without bleeding; K22.89 Other specified disease of esophagus; R10.13 Epigastric pain; Z79.899 Other long term (current) drug therapy; Z91.040 Latex allergy status
CPT/HCPCS: 43239; 88305; J2405; J3010

== ENCOUNTER → 2022-07-01 | Outpatient (REF) | payer BC ==
[~2022-07-01] MED LIST changes: -NS 1,000 ML IV ONE; +POTA-150 PO; -POTA10TA17 PO; -propofoL 200 MG/20 ML VIAL As Ordered ONE
[2022-07-01 17:24] LABS: HEMATOCRIT 40.4 % (36.0-47.0); HEMOGLOBIN 13.3 g/dl (12.0-15.5); MEAN CORPUSCULAR HEMOGLOBIN 30.2 pg (27.0-33.0); MEAN CORPUSCULAR HGB CONC 32.9 g/dl (32.0-36.5); MEAN CORPUSCULAR VOLUME 91.8 fl (80.0-96.0); PLATELET COUNT, AUTOMATED 376 10^3/uL (150-450); WHITE BLOOD COUNT 7.2 10^3/uL (4.0-10.0)
[2022-07-01 17:54] LABS: ALBUMIN 3.3 GM/DL (3.2-5.2); ALT/SGPT 19 U/L (12-78); BILIRUBIN,TOTAL 0.5 MG/DL (0.2-1.0); BLOOD UREA NITROGEN 10 MG/DL (7-18); CALCIUM LEVEL 8.8 MG/DL (8.5-10.1); CARBON DIOXIDE LEVEL 23 MEQ/L (21-32); CHLORIDE LEVEL 106 MEQ/L (98-107); CHOLESTEROL LEVEL 164 MG/DL (<200); CHOLESTEROL RISK RATIO 2.733 (<5); CREATININE FOR GFR 0.58 MG/DL (0.55-1.30); GLOMERULAR FILTRATION RATE > 60.0 (>60); GLUCOSE, FASTING 79 MG/DL (70-100); HDL CHOLESTEROL 60 MG/DL (>40); LDL CHOLESTEROL 89 MG/DL (<100); NON-HDL-C 104 MG/DL; POTASSIUM SERUM 4.2 MEQ/L (3.5-5.1); SODIUM LEVEL 136 MEQ/L (136-145); TRIGLYCERIDES LEVEL 74 MG/DL (<150)
== END ==
LOC: M LAB REF 16:17
PROVIDERS: ATTEND Physician Assistant
DX: I10 Essential (primary) hypertension (principal)

== ENCOUNTER 2022-08-20 06:13 | Emergency (ER) | payer BC, OTHER ==
[~2022-08-20] VITALS: Ht 167.6 cm; Wt 120.8 kg
[2022-08-20] MEDS ORDERED: OMEP-173 PO (06:21)
[2022-08-20] MEDS ORDERED: AMOX500C PO (06:24)
[2022-08-20] MEDS ORDERED: cefTRIAXone SOD 1 GM in D5W MINI-BAG PLUS 50 ML IV ONE (07:05)
[2022-08-20] MEDS ORDERED: ISOVUE-370 76% 100ML VIAL As Ordered ONE (07:32)
[2022-08-20 07:37] LABS: BASO % 0.3 % (0.0-1.0); EOS # 0.1 10^3/uL (0.0-0.5); EOS % 0.8 % (0.0-3.0); HEMATOCRIT 37.7 % (36.0-47.0); HEMOGLOBIN 12.7 g/dl (12.0-15.5); LYMPH # 1.3 10^3/uL (1.5-5.0); LYMPH % 11.8 % (24.0-44.0); MEAN CORPUSCULAR HEMOGLOBIN 30.6 pg (27.0-33.0); MEAN CORPUSCULAR HGB CONC 33.7 g/dl (32.0-36.5); MEAN CORPUSCULAR VOLUME 90.8 fl (80.0-96.0); MONO # 0.7 10^3/uL (0.0-0.8); MONO % 6.6 % (2.0-8.0); NEUTROPHILS # 8.8 10^3/uL (1.5-8.5); PLATELET COUNT, AUTOMATED 290 10^3/uL (150-450); RED BLOOD COUNT 4.15 10^6/uL (4.00-5.40)
[2022-08-20 08:03] LABS: C REACTIVE PROTEIN QUANTITATIV 2.9 MG/DL (<1.0)
[2022-08-20 08:05] LABS: ALBUMIN 3.1 G/DL (3.2-5.2); BILIRUBIN,DIRECT 0.2 MG/DL (<0.4); BILIRUBIN,TOTAL 0.7 MG/DL (0.3-1.2); TOTAL PROTEIN 6.4 G/DL (5.7-8.2)
[2022-08-20 08:27] LABS: ERYTHROCYTE SEDIMENTATION RATE 37 mm/hr (0-20)
[2022-08-20] MEDS ORDERED: DOXY-443 PO (08:50)
[2022-08-20] MEDS ORDERED: DOXYCYCLINE HYCLATE 100MG TABLET PO ONE (09:00)
[2022-08-20 09:16] VITALS: BP 143/65
== END 2022-08-20 09:18 | disposition home or self-care (01) ==
LOC: M ED 06:13
DX: L03.221 Cellulitis of neck (principal); J30.2 Other seasonal allergic rhinitis; Z91.040 Latex allergy status; Z79.899 Other long term (current) drug therapy
CPT/HCPCS: 70491; 80047; 80076; 83605; 85025; 85652; 86140; 87040; 96365; 96366; 99284; J0696

== ENCOUNTER 2022-08-22 07:52 | Emergency (ER) | payer OTHER ==
[~2022-08-22] VITALS: Ht 167.6 cm; Wt 121.8 kg
[~2022-08-22 07:52] MED LIST changes: +AMOX500C PO; +DOXY-443 PO; +OMEP-173 PO
[2022-08-22] MEDS ORDERED: KETOROLAC 30 MG/ML 1ML VIAL IV ONE (10:45)
[2022-08-22] MEDS ORDERED: MORPHINE 4 MG/ML 1ML VIAL IV ONE (11:30)
[2022-08-22] MEDS ORDERED: ONDANSETRON 4MG 2ML VIAL IV ONE (11:30)
[2022-08-22] MEDS ORDERED: ISOVUE-370 76% 100ML VIAL As Ordered ONE (11:38)
[2022-08-22 11:49] LABS: BASO # 0.1 10^3/uL (0.0-0.2); BASO % 0.7 % (0.0-1.0); EOS # 0.1 10^3/uL (0.0-0.5); HEMATOCRIT 42.7 % (36.0-47.0); HEMOGLOBIN 14.2 g/dl (12.0-15.5); LYMPH # 2.2 10^3/uL (1.5-5.0); LYMPH % 20.6 % (24.0-44.0); MEAN CORPUSCULAR HEMOGLOBIN 30.5 pg (27.0-33.0); MEAN CORPUSCULAR HGB CONC 33.3 g/dl (32.0-36.5); MEAN CORPUSCULAR VOLUME 91.8 fl (80.0-96.0); MONO # 0.6 10^3/uL (0.0-0.8); MONO % 5.4 % (2.0-8.0); NEUTROPHILS # 7.6 10^3/uL (1.5-8.5); PLATELET COUNT, AUTOMATED 381 10^3/uL (150-450); RED BLOOD COUNT 4.65 10^6/uL (4.00-5.40); WHITE BLOOD COUNT 10.5 10^3/uL (4.0-10.0)
[2022-08-22 12:50] VITALS: BP 139/70
[2022-08-22 12:51] LABS: ERYTHROCYTE SEDIMENTATION RATE 44 mm/hr (0-20)
[2022-08-22] MEDS ORDERED: HYDR-3713 PO (13:14)
== END 2022-08-22 13:36 | disposition home or self-care (01) ==
LOC: M ED 07:52
DX: L03.221 Cellulitis of neck (principal); I10 Essential (primary) hypertension; J30.89 Other allergic rhinitis; Z79.899 Other long term (current) drug therapy; Z91.040 Latex allergy status
CPT/HCPCS: 70491; 80047; 85025; 85652; 86140; 96374; 96375; 99283; J1885; J2270; J2405

== ENCOUNTER → 2022-08-23 | Outpatient (REF) | payer OTHER ==
[~2022-08-23] MED LIST changes: +HYDR-3713 PO
== END ==
LOC: M LAB REF 17:07
PROVIDERS: ATTEND Otolaryngology
DX: L02.91 Cutaneous abscess, unspecified (principal)

== ENCOUNTER 2022-11-07 12:11 | Outpatient (RCR) | payer OTHER | END 2022-11-08 | LOC: M PT 12:11 | PROVIDERS: ATTEND Physician Assistant | DX: M47.812 Spondylosis without myelopathy or radiculopathy, cervical region (principal) ==

== ENCOUNTER 2022-12-02 07:38 | Outpatient (RCR) | payer OTHER | END 2022-12-09 | LOC: M PT 07:38 | PROVIDERS: ATTEND Physician Assistant | DX: M47.812 Spondylosis without myelopathy or radiculopathy, cervical region (principal) ==

== ENCOUNTER → 2022-12-12 | Outpatient (CLI) | payer OTHER | LOC: M PLAIMG 13:05 | PROVIDERS: ATTEND Physician Assistant | DX: J32.9 Chronic sinusitis, unspecified (principal) ==

== ENCOUNTER 2023-01-02 07:38 | Outpatient (RCR) | payer OTHER ==
[~2023-01-02 07:38] MED LIST changes: +CYCL1SOL14 OD; -CYCL1SOL17 OD
== END 2023-01-08 ==
LOC: M PT 07:38
PROVIDERS: ATTEND Physician Assistant
DX: M47.812 Spondylosis without myelopathy or radiculopathy, cervical region (principal)

== ENCOUNTER 2023-01-09 07:44 | Outpatient (RCR) | payer OTHER | END 2023-02-08 | LOC: M PT 07:44 | PROVIDERS: ATTEND Physician Assistant | DX: M47.812 Spondylosis without myelopathy or radiculopathy, cervical region (principal) ==

== ENCOUNTER → 2023-09-29 | Outpatient (REF) | payer OTHER ==
[~2023-09-29] MED LIST changes: -K-TA10TA2 PO; +POTA-165 PO
[2023-09-29 18:48] LABS: HEMATOCRIT 46.6 % (36.0-47.0); MEAN CORPUSCULAR VOLUME 106.4 fl (80.0-96.0); RED BLOOD COUNT 4.38 10^6/uL (4.00-5.40); WHITE BLOOD COUNT 5.1 10^3/uL (4.0-10.0)
[2023-09-29 19:04] LABS: IRON (FE) 87 UG/DL (50-170); PERCENT SATURATION 26.9 % (13.2-45.0); TOTAL IRON BINDING CAPACITY 323 UG/DL (250-425)
[2023-09-29 19:05] LABS: ALBUMIN 3.4 G/DL (3.2-5.2); ALKALINE PHOSPHATASE 63 U/L (46-116); ALT/SGPT 12 U/L (7.0-40); AST/SGOT 10 U/L (<34); BILIRUBIN,TOTAL 0.4 MG/DL (0.3-1.2); BLOOD UREA NITROGEN 12 MG/DL (9-23); CALCIUM LEVEL 8.8 MG/DL (8.5-10.1); CARBON DIOXIDE LEVEL 26 MMOL/L (20-31); CHLORIDE LEVEL 107 MMOL/L (98-107); CHOLESTEROL LEVEL 180 MG/DL (<200); GLOMERULAR FILTRATION RATE > 60.0 (>60); GLUCOSE, FASTING 88 MG/DL (60-100); LDL CHOLESTEROL 107.8 MG/DL (<100); POTASSIUM SERUM 4.7 MMOL/L (3.5-5.1); SODIUM LEVEL 139 MMOL/L (136-145); TOTAL PROTEIN 6.8 G/DL (5.7-8.2); TRIGLYCERIDES LEVEL 71 MG/DL (<150); VITAMIN B12 LEVEL 325 PG/ML (211-911)
[2023-09-29 19:06] LABS: THYROID STIMULATING HORMONE 0.879 uIU/ML (0.55-4.78)
[2023-09-29 19:07] LABS: FERRITIN 30.4 NG/ML (7.3-270.7)
== END ==
LOC: M LAB REF 17:34
PROVIDERS: ATTEND Physician Assistant
DX: R53.83 Other fatigue (principal); I10 Essential (primary) hypertension

== ENCOUNTER → 2023-10-10 | Outpatient (CLI) | payer OTHER ==
[~2023-10-10] MED LIST changes: +PROHANCE 279.3MG/ML 15ML VIAL As Ordered ONE; +PROHANCE 279.3MG/ML 5ML VIAL As Ordered ONE
== END ==
LOC: M RAD 13:37
PROVIDERS: ATTEND Physician Assistant
DX: R42 Dizziness and giddiness (principal)

== ENCOUNTER 2023-11-27 08:27 | Emergency (ER) | payer OTHER ==
[~2023-11-27] VITALS: Ht 167.6 cm; Wt 120.7 kg
[~2023-11-27 08:27] MED LIST changes: -PROHANCE 279.3MG/ML 15ML VIAL As Ordered ONE; -PROHANCE 279.3MG/ML 5ML VIAL As Ordered ONE
[2023-11-27] MEDS: METOCLOPRAMIDE INJ 10MG/2ML VIAL IV ONE (10:01)
[2023-11-27] MEDS: KETOROLAC 30 MG/ML 1ML VIAL IV ONE (10:02)
[2023-11-27] MEDS: NS 1,000 ML IV ONE (10:02)
[2023-11-27] MEDS: ALPRAZolam 0.5 MG TAB PO ONE (10:03)
[2023-11-27 10:19] LABS: HEMATOCRIT 41.5 % (36.0-47.0); HEMOGLOBIN 14.2 g/dl (12.0-15.5); MEAN CORPUSCULAR HEMOGLOBIN 31.1 pg (27.0-33.0); MEAN CORPUSCULAR HGB CONC 34.2 g/dl (32.0-36.5); PLATELET COUNT, AUTOMATED 345 10^3/uL (150-450); RED BLOOD COUNT 4.56 10^6/uL (4.00-5.40); WHITE BLOOD COUNT 6.2 10^3/uL (4.0-10.0)
[2023-11-27 10:44] LABS: ETHYL ALCOHOL (ETHANOL) < 0.003 % (0.000-0.010); HCG, SERUM QUALITATIVE NEGATIVE (NEGATIVE)
[2023-11-27 10:45] LABS: ALBUMIN 3.5 G/DL (3.2-5.2); ALKALINE PHOSPHATASE 69 U/L (46-116); ALT/SGPT 16 U/L (7.0-40); AST/SGOT 15 U/L (<34); BILIRUBIN,DIRECT 0.1 MG/DL (<0.4); BILIRUBIN,TOTAL 0.4 MG/DL (0.3-1.2); BLOOD UREA NITROGEN 15 MG/DL (9-23); CALCIUM LEVEL 9.4 MG/DL (8.5-10.1); CARBON DIOXIDE LEVEL 27 MMOL/L (20-31); CHLORIDE LEVEL 106 MMOL/L (98-107); CREATININE FOR GFR 0.69 MG/DL (0.55-1.30); GLOMERULAR FILTRATION RATE > 60.0 (>60); GLUCOSE, FASTING 90 MG/DL (60-100); MAGNESIUM LEVEL 1.9 MG/DL (1.8-2.4); POTASSIUM SERUM 4.5 MMOL/L (3.5-5.1); SALICYLATE LEVEL < 3.0 MG/DL (<30); SODIUM LEVEL 140 MMOL/L (136-145); TOTAL PROTEIN 6.9 G/DL (5.7-8.2)
[2023-11-27 10:48] LABS: THYROID STIMULATING HORMONE 1.047 uIU/ML (0.55-4.78)
[2023-11-27 10:59] LABS: AMPHETAMINES LEVEL URINE NEGATIVE (NEGATIVE); BARBITURATES URINE NEGATIVE (NEGATIVE); BENZODIAZEPINES URINE NEGATIVE (NEGATIVE); CANNABINOIDS URINE NEGATIVE (NEGATIVE); COCAINE METABOLITE URINE NEGATIVE (NEGATIVE); METHADONE URINE NEGATIVE (NEGATIVE); OPIATES URINE NEGATIVE (NEGATIVE); PHENCYCLIDINE URINE NEGATIVE (NEGATIVE)
[2023-11-27] MEDS ORDERED: IBUP200C89 PO (11:08)
[2023-11-27] MEDS ORDERED: LISI5TAB11 PO (11:08)
[2023-11-27] MEDS ORDERED: HOME MED LIST COMPLETE! XX SCH (11:10)
[2023-11-27] MEDS ORDERED: HYDR-3363 PO (11:38)
[2023-11-27 12:06] VITALS: BP 129/78; TEMP 97.6; O2SAT 100
== END 2023-11-27 12:08 | disposition home or self-care (01) ==
LOC: M ED 08:27
DX: R51.9 Headache, unspecified (principal); F41.9 Anxiety disorder, unspecified; I10 Essential (primary) hypertension; K21.9 Gastro-esophageal reflux disease without esophagitis; Z91.040 Latex allergy status; Z91.09 Other allergy status, other than to drugs and biological substances; Z79.899 Other long term (current) drug therapy; Z79.1 Long term (current) use of non-steroidal anti-inflammatories (NSAID)
CPT/HCPCS: 80048; 80076; 80143; 80307; 82077; 83735; 84443; 84703; 85027; 96361; 96374; 96375; 99284; J1885; J2765

== ENCOUNTER 2024-05-30 05:45 | Emergency (ER) | payer OTHER ==
[~2024-05-30] VITALS: Ht 167.6 cm; Wt 123.0 kg
[~2024-05-30 05:45] MED LIST changes: +DOXY-323 PO; -DOXY-443 PO; +HYDR-3363 PO; +IBUP200C89 PO; +LISI5TAB11 PO; +ONDA-282 PO; -ONDA4TAB6 PO
[2024-05-30 07:42] VITALS: BP 117/56; TEMP 97.8; O2SAT 98
== END 2024-05-30 07:46 | disposition home or self-care (01) ==
LOC: M ED 05:45
DX: M25.552 Pain in left hip (principal); Z91.040 Latex allergy status; Z91.09 Other allergy status, other than to drugs and biological substances; Z79.1 Long term (current) use of non-steroidal anti-inflammatories (NSAID); Z79.899 Other long term (current) drug therapy

== ENCOUNTER → 2024-09-06 | Outpatient (REF) | payer OTHER ==
[~2024-09-06] MED LIST changes: -DOXY-323 PO; +DOXY-441 PO
== END ==
LOC: M LAB REF 11:51
PROVIDERS: ATTEND Nurse Practitioner Family
DX: J06.9 Acute upper respiratory infection, unspecified (principal)

== ENCOUNTER → 2024-09-19 | Outpatient (REF) | payer OTHER, BC ==
[2024-09-19 18:05] LABS: BASO # 0.1 10^3/uL (0.0-0.2); BASO % 0.8 % (0.0-1.0); EOS # 0.1 10^3/uL (0.0-0.5); EOS % 1.4 % (0.0-3.0); HEMATOCRIT 41.4 % (36.0-47.0); HEMOGLOBIN 14.4 g/dl (12.0-15.5); LYMPH # 1.9 10^3/uL (1.5-5.0); LYMPH % 28.3 % (24.0-44.0); MEAN CORPUSCULAR HEMOGLOBIN 30.6 pg (27.0-33.0); MEAN CORPUSCULAR HGB CONC 34.8 g/dl (32.0-36.5); MEAN CORPUSCULAR VOLUME 88.1 fl (80.0-96.0); MONO # 0.5 10^3/uL (0.0-0.8); NEUTROPHILS % 61.2 % (36.0-66.0); PLATELET COUNT, AUTOMATED 364 10^3/uL (150-450); WHITE BLOOD COUNT 6.6 10^3/uL (4.0-10.0)
[2024-09-19 18:08] LABS: ALBUMIN 3.5 G/DL (3.2-5.2); ALKALINE PHOSPHATASE 71 U/L (35-104); ALT/SGPT 23 U/L (7.0-40); AST/SGOT 16 U/L (<34); BILIRUBIN,TOTAL 0.5 MG/DL (0.3-1.2); BLOOD UREA NITROGEN 9 MG/DL (9-23); CARBON DIOXIDE LEVEL 28 MMOL/L (20-31); CHLORIDE LEVEL 105 MMOL/L (98-107); CHOLESTEROL LEVEL 181 MG/DL (<200); CHOLESTEROL RISK RATIO 3.29 (<5); CREATININE FOR GFR 0.71 MG/DL (0.55-1.30); GLOMERULAR FILTRATION RATE > 60.0 (>60); GLUCOSE, FASTING 89 MG/DL (60-100); LDL CHOLESTEROL 105.2 MG/DL (<100); POTASSIUM SERUM 3.7 MMOL/L (3.5-5.1); SODIUM LEVEL 141 MMOL/L (136-145); TRIGLYCERIDES LEVEL 104 MG/DL (<150)
== END ==
LOC: M LAB REF 16:20
PROVIDERS: ATTEND Physician Assistant
DX: I10 Essential (primary) hypertension (principal)

== ENCOUNTER → 2024-11-26 | Outpatient (CLI) | payer BC | LOC: M SOG 07:49 | PROVIDERS: ATTEND Physician Assistant | DX: M21.962 Unspecified acquired deformity of left lower leg (principal) ==